=== PATIENT | female | born 1970 | race Caucasian/White ===

== ENCOUNTER 2016-04-05 11:37 | Emergency (ER) | payer MEDICAID ==
--- NOTE | 2016-04-05 11:46 | ER Document Report ---
ED Medical Screen (RME) - General Stated Complaint: BUMP ON RIGHT HAND Time seen by provider: 11:46 Mode of Arrival: Ambulatory Information source: Patient Notes: 45-year-old female complaining of a bump on the dorsal aspect of her right hand over the lateral carpal. It appears to be a ganglion cyst. TRAVEL OUTSIDE OF THE [place] IN LAST 30 DAYS: No - Related Data Allergies/Adverse Reactions: clarithromycin [From Biaxin] Allergy (Verified 04/05/16 11:43) erythromycin base [Erythromycin Base] Allergy (Verified 04/05/16 11:43) naproxen sodium [From Anaprox] Allergy (Verified 04/05/16 11:43) pseudoephedrine HCl [From Sudafed] Allergy (Verified 04/05/16 11:43) Sulfa (Sulfonamide Antibiotics) Allergy (Verified 04/05/16 11:43) Past Medical History Pulmonary Medical History: Reports: Hx Asthma Neurological Medical History: Reports: Hx Seizures Renal/ Medical History: Reports: Hx Ovarian Cysts GI Medical History: Reports: Hx Gastroesophageal Reflux Disease Musculoskeltal Medical History: Reports Hx Musculoskeletal Deformity Skin Medical History: Reports Hx Cellulitis Psychiatric Medical History: Reports: Hx Anxiety, Hx Depression Infectious Medical History: Reports: Hx MRSA Past Surgical History: Reports: Hx Section, Hx Gynecologic Surgery - tubal , Hx Orthopedic Surgery - Right tibia intramedullary clare, Hx Tonsillectomy - Immunizations Hx Diphtheria, Pertussis, Tetanus Vaccination: No - unknown Physical Exam - Vital signs Vitals: Temp Pulse Resp BP Pulse Ox 97.9 F 99 20 127/86 H 98 04/05/16 11:40 04/05/16 11:40 04/05/16 11:40 04/05/16 11:40 04/05/16 11:40 Course - Vital Signs Vital signs: Temp Pulse Resp BP Pulse Ox 97.9 F 99 20 127/86 H 98 04/05/16 11:40 04/05/16 11:40 04/05/16 11:40 04/05/16 11:40 04/05/16 11:40
--- NOTE | 2016-04-05 12:07 | ER Document Report ---
ED Hand/Wrist Injury - General Chief Complaint: Wrist Pain Stated Complaint: BUMP ON RIGHT HAND Mode of Arrival: Ambulatory Notes: Patient says that she's having pain in her right wrist for the last several months. Her problem began when she was admitted here on October 21, last year, for seizures. She had an IV placed in her right wrist and the site subsequently became infected and broke open and eventually healed with a scar of the dorsal lateral aspect of the right wrist around November. Then, about December, she noted a swollen knot of the mid dorsal right wrist which is been present ever since and is painful, especially with movement and use of that wrist. She is right-hand dominant. Has not had any current or recent drainage from the site and no swelling and erythema or any symptoms suggestive of infection. Has not had a fever. PMH: Seizures. Allergy to Anaprox, sulfa, and Biaxin and erythromycin. TRAVEL OUTSIDE OF THE [place] IN LAST 30 DAYS: No - Related Data Allergies/Adverse Reactions: clarithromycin [From Biaxin] Allergy (Verified 04/05/16 11:43) erythromycin base [Erythromycin Base] Allergy (Verified 04/05/16 11:43) naproxen sodium [From Anaprox] Allergy (Verified 04/05/16 11:43) pseudoephedrine HCl [From Sudafed] Allergy (Verified 04/05/16 11:43) Sulfa (Sulfonamide Antibiotics) Allergy (Verified 04/05/16 11:43) Past Medical History - General Information source: Patient - Social History Smoking Status: Never Smoker Cigarette use (# per day): No Chew tobacco use (# tins/day): No Frequency of alcohol use: None Drug Abuse: None Family History: Reviewed & Not Pertinent Patient has suicidal ideation: No Patient has homicidal ideation: No - Past Medical History Cardiac Medical History: Denies: Hx Coronary Artery Disease Pulmonary Medical History: Reports: Hx Asthma Neurological Medical History: Reports: Hx Seizures - Has vagal nerve stimulator. She takes Keppra, Dilantin, and Vimpat Endocrine Medical History: Denies: Hx Diabetes Mellitus Type 1, Hx Diabetes Mellitus Type 2 Renal/ Medical History: Reports: Hx Ovarian Cysts GI Medical History: Reports: Hx Gastroesophageal Reflux Disease Musculoskeltal Medical History: Reports Hx Musculoskeletal Deformity Skin Medical History: Reports Hx Cellulitis, Reports Hx MRSA Psychiatric Medical History: Reports: Hx Anxiety, Hx Depression Infectious Medical History: Reports: Hx MRSA Past Surgical History: Reports: Hx Section, Hx Gynecologic Surgery - tubal , Hx Orthopedic Surgery - Right tibia intramedullary clare, Hx Tonsillectomy - Immunizations Hx Diphtheria, Pertussis, Tetanus Vaccination: No - unknown Review of Systems - Review of Systems Constitutional: denies: Fever EENT: See HPI Cardiovascular: denies: Chest pain Respiratory: denies: Cough, Short of breath, Wheezing Gastrointestinal: denies: Abdominal pain, Diarrhea, Nausea, Vomiting Neurological/Psychological: No symptoms reported Physical Exam - Vital signs Vitals: Temp Pulse Resp BP Pulse Ox 97.9 F 99 20 127/86 H 98 04/05/16 11:40 04/05/16 11:40 04/05/16 11:40 04/05/16 11:40 04/05/16 11:40 Interpretation: Normal - Notes Notes: PHYSICAL EXAMINATION: GENERAL: Well-appearing, in no acute distress. Vital signs are all normal. Afebrile. HEAD: Atraumatic, normocephalic. EYES: Pupils equal round and reactive to light, extraocular movements intact. NECK: Normal range of motion, supple. LUNGS: Breath sounds clear and equal bilaterally. HEART: Regular rate and rhythm without murmurs. ABDOMEN: Soft, nontender. No guarding or rebound. BACK: No tenderness throughout entire back. EXTREMITIES: Dorsal right wrist has a 1 cm diameter cystic structure of the dorsal mid wrist which feels and looks like a ganglion cyst. There is no erythema or warmth or any symptoms to suggest an infectious process. Just slightly distal and lateral to this cystic structure is a healed scar from previous injury. No wrist joint swelling and no pain in the wrist joint with passive movement. No erythema, effusion, soft tissue swelling, warmth, etc. of the right wrist joint. NEUROLOGICAL: Normal speech, normal gait. Normal sensory, motor, and reflex exams. Awake, alert, and oriented x3. Cranial nerves normal. PSYCH: Normal mood, normal affect. SKIN: Warm, dry, no rashes. Course - Re-evaluation Re-evalutation: 04/05/16 12:24 After evaluating the patient's complaint of wrist pain and swelling of the dorsum of the right wrist. Patient was being written up for discharge when it was reported she was having a seizure. Only witness to the seizure is a male blast furnace blower with the patient, who, when asked what she did, he raises both of his arms up. By the time I could get to the room, the patient was not having any seizure or postictal activity. She was conversant and answering questions appropriately, did not appear to be postictal in any manner, no heavy breathing , drooling, confusion, loss of bowel or bladder. She told me that she has seizures a couple of times a week, in spite of taking her prescribed medications (Dilantin, Keppra, Vimpat). Patient was left to lay on the stretcher for a short time in the next I looked in her room, she had left. - Vital Signs Vital signs: Temp Pulse Resp BP Pulse Ox 97.4 F 94 16 127/79 H 98 04/05/16 12:26 04/05/16 12:26 04/05/16 12:26 04/05/16 12:26 04/05/16 12:26 Discharge - Discharge Clinical Impression: Ganglion cyst of dorsum of right wrist Condition: Stable Disposition: HOME, SELF-CARE Additional Instructions: Ganglion Cyst A ganglion cyst is jelly-like material inside a tough coating. The cyst usually forms near an old tendon injury. Symptoms begin when the cyst gets big enough to "get in the way." If the cyst is not growing and not hurting, it doesn't need treatment. Symptoms of a cyst can be eased by injection of cortisone. The cysts can be reduced in size by sucking the jelly material out of it (the cyst will usually grow back). A splint helps ease symptoms. We often give oral antiinflammatory medicine. Large cysts, or those that continue to cause pain, should be removed surgically. Come back if the area becomes red, swollen, or increasingly tender. SPLINT PRECAUTIONS: A splint has been placed. This will protect the area while healing begins. Your problem does NOT normally require a cast. It MUST, however, be held still! Keep the splint on ALL THE TIME until instructed to remove it by the doctor. As you begin to use the area, be careful. You shouldn't do anything which causes discomfort -- you may disturb the injury even with the splint in place. After the initial period of rest and elevation, if splint does not prevent pain when you move, come back. You may require placement of a different splint , or a cast. If there is unexpected severe pain, or numbness, discoloration, or swelling beyond the splint, you should return at once. If you feel that the splint has broken or become loose, come back. The wrist splint is being provided for your comfort. You may remove the splint when you have to have free and unencumbered use of the wrist. ICE & ELEVATION: Apply ice packs frequently against the painful area. Many different schedules are recommended, such as "20 minutes on, 20 minutes off" or "one hour ice, two hours rest." If you need to work, you may need to go longer between ice treatments. You should plan to have the area ice packed AT LEAST one- fourth of the time. The ice should be applied over the wrap, tape, or splint, or over a layer of cloth -- not directly against the skin. Some ice bags have a built-in cloth and can be put directly on the skin. Your injured part should be elevated as much as possible over the next 48 hours. Try to keep the injury above the level of the heart. Avoid use of the injured area. Elevation and rest will decrease the swelling. STEROID MEDICATION: You have been given a medicine of the cortisone/steroid class. This medication is used to control inflammation or allergy. It is usually only given for a short period of time, until the acute process subsides. There are usually no side effects from short-term use of cortisone-like medications. Some persons feel an increased sense of well-being and are not sleepy at bedtime. Long-term use of cortisone medications is best avoided, unless required for a severe condition. If your condition does not remit, or relapses after the course of corticosteroid medication, you should consult your physician. The steroid medication is given for a week to reduce any inflammatory response around the cyst. It will not cure the cyst or make it go away. USE OF ACETAMINOPHEN (Tylenol): Acetaminophen may be taken for pain relief or fever control. It's much safer than aspirin, offering a wider range of "safe" dosages. It is safe during . Some brand names are Tylenol, Panadol, Datril, Anacin 3, Tempra, and Liquiprin. Acetaminophen can be repeated every four hours. The following are maximum recommended dosages: WEIGHT Dose Drops Elixir Chewable( 80mg) (LBS.) drprs=droppers tsp=teaspoon >89 pounds or adults 650 mg to 900 mg Acetaminophen can be repeated every four hours. Maximum dose not to exceed 4000 mg a day. These maximum recommended dosages are slightly higher than the dosages written on the product container, but these dosages are very safe and below the toxic dosage for acetaminophen. Ultram Ultram is an excellent drug for pain relief. It is not a narcotic, but it works in a similar way. Ultram can take up to two hours for full effect. Although not addicting, Ultram is best avoided in patients with a history of drug abuse. Ultram should not be used with alcohol, sleeping pills, or narcotics. If you're prone to seizures, Ultram can make you more likely to have a seizure. Ultram can be hazardous when combined with MAO-inhibitor antidepressants (such as Nardil or Parnate). Be sure your doctor is aware of all medicines you are taking. Persons with severe liver or kidney disease should increase the time between doses of Ultram. Discuss this with your doctor if you're uncertain. Side effects of Ultram can include dizziness, nausea, constipation, sleepiness, and itching. (These side effects are also seen with narcotic pain medicines.) Please call your doctor if you have other disturbing effects. FOLLOW-UP CARE: If you have been referred to a physician for follow-up care, call the physician s office for an appointment as you were instructed or within the next two days. If you experience worsening or a significant change in your symptoms, notify the physician immediately or return to the Emergency Department at any time for re-evaluation. The only definitive care for cyst like the cyst on your wrist is surgical removal. I am providing you with Dr. Hernández's name and contact information. He is an orthopedic surgeon specializing in hand and wrist surgery. You may want to make an appointment to follow-up with him to discuss treatment options. Prescriptions: Tramadol HCl [Ultram] 50 mg PO Q4HP PRN #15 tablet PRN Reason: Prednisone [Deltasone 10 mg Tablet] 10 mg PO ASDIR PRN #21 tablet PRN Reason: Referrals: DIANA HERNÁNDEZ, [ACTIVE STAFF] - Follow up as needed
[2016-04-05 12:32] VITALS: BP 127/79
== END 2016-04-05 12:31 | disposition home or self-care (01) ==
LOC: ER 11:37
DX: M67.441 Ganglion, right hand (principal); M25.531 Pain in right wrist; R56.9 Unspecified convulsions; Z79.899 Other long term (current) drug therapy; J45.909 Unspecified asthma, uncomplicated; Z88.2 Allergy status to sulfonamides; Z88.1 Allergy status to other antibiotic agents; Z88.8 Allergy status to other drugs, medicaments and biological substances; Z86.14 Personal history of Methicillin resistant Staphylococcus aureus infection; T42.6X6A Underdosing of other antiepileptic and sedative-hypnotic drugs, initial encounter; Z91.128 Patient's intentional underdosing of medication regimen for other reason; F17.200 Nicotine dependence, unspecified, uncomplicated; E11.9 Type 2 diabetes mellitus without complications; Z96.89 Presence of other specified functional implants
CPT/HCPCS: 99283; 99284; 82962; L3984

== ENCOUNTER 2016-04-05 12:39 | Emergency (ER) | payer MEDICAID ==
--- NOTE | 2016-04-05 13:32 | ER Document Report ---
[id number] Notes: The patient is a 45-year-old female, past medical history seizures, anxiety, depression, presents after a 2 minute witnessed seizure that occurred after she left her doctor's office this morning. She said she is this to be taking 3 tablets of her Depakote twice daily, but she is only taking 2 tablets of her Depakote twice daily because it makes her "a raging bitch". She has not missed any of her other doses of her seizure medications. Her Dilantin levels were checked less than one week ago and they were normal. She denies head injury, nausea, vomiting, fevers, numbness, tingling, blurry vision or headache. - Related Data Allergies/Adverse Reactions: clarithromycin [From Biaxin] Allergy (Verified 04/05/16 11:43) erythromycin base [Erythromycin Base] Allergy (Verified 04/05/16 11:43) naproxen sodium [From Anaprox] Allergy (Verified 04/05/16 11:43) pseudoephedrine HCl [From Sudafed] Allergy (Verified 04/05/16 11:43) Sulfa (Sulfonamide Antibiotics) Allergy (Verified 04/05/16 11:43) Past Medical History - General Information source: Patient - Social History Smoking Status: Current Every Day Smoker Family History: Reviewed & Not Pertinent - Past Medical History Cardiac Medical History: Denies: Hx Coronary Artery Disease Pulmonary Medical History: Reports: Hx Asthma Neurological Medical History: Reports: Hx Seizures - Has vagal nerve stimulator. She takes Keppra, Dilantin, and Vimpat Endocrine Medical History: Denies: Hx Diabetes Mellitus Type 1, Hx Diabetes Mellitus Type 2 Renal/ Medical History: Reports: Hx Ovarian Cysts GI Medical History: Reports: Hx Gastroesophageal Reflux Disease Musculoskeltal Medical History: Reports Hx Musculoskeletal Deformity Skin Medical History: Reports Hx Cellulitis, Reports Hx MRSA Psychiatric Medical History: Reports: Hx Anxiety, Hx Depression Infectious Medical History: Reports: Hx MRSA Past Surgical History: Reports: Hx Section, Hx Gynecologic Surgery - tubal , Hx Orthopedic Surgery - Right tibia intramedullary clare, Hx Tonsillectomy - Immunizations Hx Diphtheria, Pertussis, Tetanus Vaccination: No - unknown Review of Systems - Review of Systems Notes: REVIEW OF SYSTEMS: CONSTITUTIONAL: -fevers, -chills EENT: -eye pain, -difficulty swallowing, -nasal congestion CARDIOVASCULAR:-chest pain, -syncope. RESPIRATORY: -cough, -SOB GASTROINTESTINAL: -abdominal pain, - nausea, -vomiting, -diarrhea GENITOURINARY: -dysuria, -hematuria MUSCULOSKELETAL: -back pain, -neck pain SKIN: -rash or skin lesions. HEMATOLOGIC: -easy bruising or bleeding. LYMPHATIC: -swollen, enlarged glands. NEUROLOGICAL: -altered mental status, -headache, +seizures PSYCHIATRIC: -anxiety, -depression. ALL OTHER SYSTEMS REVIEWED AND NEGATIVE. Physical Exam - Vital signs Vitals: HR 72, BP 128/73, Pulse Ox 96% on RA, RR 12 - Notes Notes: PHYSICAL EXAMINATION: GENERAL: Well-appearing, well-nourished and in no acute distress. HEAD: Atraumatic, normocephalic. EYES: Pupils equal round and reactive to light, extraocular movements intact, sclera anicteric, conjunctiva are normal. ENT: nares patent, oropharynx clear without exudates. Moist mucous membranes. NECK: Normal range of motion, supple without lymphadenopathy LUNGS: Breath sounds clear to auscultation bilaterally and equal. No wheezes rales or rhonchi. HEART: Regular rate and rhythm without murmurs ABDOMEN: Soft, nontender, normoactive bowel sounds. No guarding, no rebound. No masses appreciated. EXTREMITIES: Normal range of motion, no pitting or edema. No cyanosis. NEUROLOGICAL: Cranial nerves grossly intact. Normal speech, normal gait. Normal sensory, motor, and reflex exams. PSYCH: Normal mood, normal affect. SKIN: Warm, Dry, normal turgor, no rashes or lesions noted. Course - Re-evaluation Re-evalutation: Accu-Chek normal and no head injury. Patient has a history of seizures. Patient does not want her Depakote levels checked at this time because she knows that they will be low because she is not taking them as instructed. Instructed her to take her Depakote when she gets home and to follow-up with the neurologist if she is expressing to many side effects. Discharge - Discharge Clinical Impression: Recurrent seizures Condition: Good Disposition: HOME, SELF-CARE Additional Instructions: Daycare medications as prescribed by her neurologist. If you're having side effects, contact your neurologist to discuss changing her medications. Seizure, Known Epileptic You have had a seizure. Seizures may "break through" in an epileptic due to stress of infection or injury, a change in blood chemistry, or drug and alcohol use. Another common cause is failure to take medication as prescribed. Your doctor has evaluated your situation for the likely cause of this seizure. It is important that you follow his advice concerning any medication changes and follow-up care. Further testing of anti-seizure medication levels in your blood may be necessary. If you have a [place] driver's license, it's important that you DO NOT DRIVE until given permission by your physician. This seizure must be reported to the [place] driver 's license bureau. Call the doctor or return if seizures recur, or if new or unusual symptoms arise -- such as severe headache, confusion, excessive sleepiness, local weakness or numbness, neck stiffness, or fever. Referrals: SANFORD CHRISTENSEN MD [ACTIVE STAFF] - Follow up as needed
== END 2016-04-05 14:05 | disposition home or self-care (01) ==
LOC: ER 12:39
DX: R56.9 Unspecified convulsions (principal); T42.6X6A Underdosing of other antiepileptic and sedative-hypnotic drugs, initial encounter; Z91.128 Patient's intentional underdosing of medication regimen for other reason; Z79.899 Other long term (current) drug therapy; F17.200 Nicotine dependence, unspecified, uncomplicated; E11.9 Type 2 diabetes mellitus without complications; Z88.1 Allergy status to other antibiotic agents; Z88.8 Allergy status to other drugs, medicaments and biological substances; Z88.2 Allergy status to sulfonamides; J45.909 Unspecified asthma, uncomplicated; Z96.89 Presence of other specified functional implants; Z86.14 Personal history of Methicillin resistant Staphylococcus aureus infection
CPT/HCPCS: 82962; 99284

== ENCOUNTER 2016-04-06 21:44 | Emergency (ER) | payer MEDICAID ==
--- NOTE | 2016-04-06 22:50 | ER Document Report ---
ED Seizure - General Chief Complaint: Probable Seizure Stated Complaint: POSSIBLE SEIZURE Mode of Arrival: Ambulatory Information source: Patient, Friend Notes: Patient is a 45-year-old female with a history of seizures who presents here today for 3 seizures that she's had today that were witnessed by her boyfriend. Boyfriend states that she "shook all over and peed herself each time." He states that the longest seizure was approximately 3-4 minutes long. She admits that she does not take her Dilantin like she should, she is supposed to take it 3 times a day and states that she usually only takes it twice. She would like information for another neurologist as she does not want to see Dr. Wong any longer. - Related Data Allergies/Adverse Reactions: clarithromycin [From Biaxin] Allergy (Verified 04/05/16 11:43) erythromycin base [Erythromycin Base] Allergy (Verified 04/05/16 11:43) naproxen sodium [From Anaprox] Allergy (Verified 04/05/16 11:43) pseudoephedrine HCl [From Sudafed] Allergy (Verified 04/05/16 11:43) Sulfa (Sulfonamide Antibiotics) Allergy (Verified 04/05/16 11:43) Past Medical History - General Information source: Patient, Friend - Social History Smoking Status: Unknown if Ever Smoked Family History: Reviewed & Not Pertinent - Past Medical History Cardiac Medical History: Denies: Hx Coronary Artery Disease Pulmonary Medical History: Reports: Hx Asthma Neurological Medical History: Reports: Hx Seizures - Has vagal nerve stimulator. She takes Keppra, Dilantin, and Vimpat Endocrine Medical History: Denies: Hx Diabetes Mellitus Type 1, Hx Diabetes Mellitus Type 2 Renal/ Medical History: Reports: Hx Ovarian Cysts GI Medical History: Reports: Hx Gastroesophageal Reflux Disease Musculoskeltal Medical History: Reports Hx Musculoskeletal Deformity Skin Medical History: Reports Hx Cellulitis, Reports Hx MRSA Psychiatric Medical History: Reports: Hx Anxiety, Hx Depression Infectious Medical History: Reports: Hx MRSA Past Surgical History: Reports: Hx Section, Hx Gynecologic Surgery - tubal , Hx Orthopedic Surgery - Right tibia intramedullary clare, Hx Tonsillectomy - Immunizations Hx Diphtheria, Pertussis, Tetanus Vaccination: No - unknown Review of Systems - Review of Systems Constitutional: No symptoms reported EENT: No symptoms reported Cardiovascular: No symptoms reported Respiratory: No symptoms reported Gastrointestinal: No symptoms reported Genitourinary: No symptoms reported Female Genitourinary: No symptoms reported Musculoskeletal: No symptoms reported Skin: No symptoms reported Hematologic/Lymphatic: No symptoms reported Neurological/Psychological: See HPI Physical Exam - Vital signs Vitals: Temp Pulse Resp BP Pulse Ox 98.2 F 92 21 H 134/84 H 100 04/06/16 23:00 04/06/16 23:00 04/06/16 23:00 04/06/16 23:00 04/06/16 23:00 - Notes Notes: PHYSICAL EXAMINATION: GENERAL: Morbidly obese, otherwise Well-appearing and in no acute distress. HEAD: Atraumatic, normocephalic. EYES: Pupils equal round and reactive to light, extraocular movements intact, sclera anicteric, conjunctiva are normal. ENT: ear canals without erythema or foreign body, TMs pearly gan with good bony landmarks, nares patent, oropharynx clear without exudates. Moist mucous membranes. Airway patent, no evidence of patient biting tongue NECK: Normal range of motion, supple without lymphadenopathy LUNGS: CTAB and equal. No wheezes rales or rhonchi. HEART: Regular rate and rhythm without murmurs ABDOMEN: Soft, no tenderness. No guarding, no rebound BACK: no vertebral tenderness, normal ROM GI/: no CVA tenderness EXTREMITIES: Normal range of motion, no pitting edema. No cyanosis. NEUROLOGICAL: Cranial nerves grossly intact. Normal sensory/motor exams. PSYCH: Normal mood, normal affect. SKIN: Warm, Dry, normal turgor, no rashes or lesions noted Course - Re-evaluation Re-evalutation: 04/07/16 06:53 Patient was given IV dose of Dilantin here in the emergency department and advised to follow the prescription as it is written and follow-up with her neurologist. - Vital Signs Vital signs: Temp Pulse Resp BP Pulse Ox 98.2 F 77 20 109/61 99 04/07/16 01:53 04/07/16 01:53 04/07/16 01:53 04/07/16 01:53 04/07/16 01:53 Discharge - Discharge Clinical Impression: Recurrent seizures Condition: Stable Disposition: HOME, SELF-CARE Additional Instructions: Return immediately for any new or worsening symptoms. Follow up with your neurologist, call tomorrow to make followup appointment. Forms: Return to Work
[2016-04-06] MEDS ORDERED: NORMAL SALINE 1000 ML 1,000 ML IV ONE (22:51)
[2016-04-07] MEDS ORDERED: PHENYTOIN SODIUM INJ/PF 250 MG/5 ML SDV IV ONE (00:14)
[2016-04-07] MEDS ORDERED: PROCHLORPERAZINE EDISYLATE INJ 10 MG/2 ML VIAL IV ONE (01:36)
[2016-04-07] MEDS ORDERED: DIPHENHYDRAMINE HCL 50 MG/ML VIAL IV ONE (01:36)
[2016-04-07 02:08] VITALS: BP 109/61
== END 2016-04-07 02:08 | disposition home or self-care (01) ==
LOC: ER 21:44
DX: R56.9 Unspecified convulsions (principal); R32 Unspecified urinary incontinence; T42.0X6A Underdosing of hydantoin derivatives, initial encounter; Z91.128 Patient's intentional underdosing of medication regimen for other reason; Z91.14 Patient's other noncompliance with medication regimen; E66.01 Morbid (severe) obesity due to excess calories; J45.909 Unspecified asthma, uncomplicated; Z88.1 Allergy status to other antibiotic agents; Z88.8 Allergy status to other drugs, medicaments and biological substances; Z88.2 Allergy status to sulfonamides; Z96.89 Presence of other specified functional implants; Z86.14 Personal history of Methicillin resistant Staphylococcus aureus infection
CPT/HCPCS: 99283; 96374; 96375; J1200; J1165; J0780

== ENCOUNTER → 2016-04-06 | Outpatient (CLI) | payer MEDICAID ==
[2016-04-06 13:23] LABS: HEMATOCRIT 35.3 % (36.0-47.0); HEMOGLOBIN 12.2 g/dL (12.0-15.5); HGB HCT DIFFERENCE 1.3; MEAN CORPUSCULAR HEMOGLOBIN 32.7 pg (27.0-33.4); MEAN CORPUSCULAR HGB CONC 34.7 g/dL (32.0-36.0); MEAN CORPUSCULAR VOLUME 94 fl (80-97); RED BLOOD COUNT 3.74 10^6/uL (3.72-5.28); RED CELL DISTRIBUTION WIDTH 13.5 % (11.5-14.0); WHITE BLOOD COUNT 5.8 10^3/uL (4.0-10.5)
[2016-04-06 13:52] LABS: VALPROIC ACID 57.6 ug/mL (50.0-120.0)
[2016-04-08 09:57] LABS: LACOSAMIDE 4.9 ug/mL (5.0-10.0)
[2016-04-08 14:36] LABS: LEVETIRACETAM (KEPPRA) 5.3 ug/mL (10.0-40.0)
== END ==
LOC: OD 12:09
PROVIDERS: ATTEND Specialist
DX: R56.9 Unspecified convulsions (principal)
CPT/HCPCS: 36415; 80164; 80177; 80185; 82542; 84460; 85027

== ENCOUNTER 2016-04-09 09:16 | Emergency (ER) | payer MEDICAID ==
[2016-04-09 10:43] LABS: ABSOLUTE EOSINOPHILS # (AUTO) 0.1 10^3/uL (0.0-0.6); ABSOLUTE LYMPHOCYTES (AUTO) 1.9 10^3/uL (0.5-4.7); ABSOLUTE MONOCYTES (AUTO) 0.5 10^3/uL (0.1-1.4); ABSOLUTE NEUT (AUTO) 2.4 10^3/uL (1.7-8.2); BASOPHILS % (AUTO) 0.7 % (0-2); EOSINOPHILS % (AUTO) 2.6 % (0-6); HEMATOCRIT 34.4 % (36.0-47.0); HEMOGLOBIN 11.4 g/dL (12.0-15.5); HGB HCT DIFFERENCE -0.2; LYMPHOCYTES % (AUTO) 38.8 % (13-45); MEAN CORPUSCULAR HEMOGLOBIN 32.3 pg (27.0-33.4); MEAN CORPUSCULAR HGB CONC 33.2 g/dL (32.0-36.0); MEAN CORPUSCULAR VOLUME 97 fl (80-97); MONOCYTES % (AUTO) 9.8 % (3-13); RED BLOOD COUNT 3.54 10^6/uL (3.72-5.28); RED CELL DISTRIBUTION WIDTH 13.3 % (11.5-14.0); SEGMENTED NEUTROPHILS % (AUTO) 48.1 % (42-78)
[2016-04-09 10:46] LABS: APPEARANCE,URINE SLIGHTLY-CLOUDY; BILIRUBIN,URINE NEGATIVE (NEGATIVE); GLUCOSE, URINE NEGATIVE (NEGATIVE); KETONES,URINE TRACE mg/dL (NEGATIVE); LEUKOCYTE ESTERASE,URINE NEGATIVE (NEGATIVE); NITRITE,URINE NEGATIVE (NEGATIVE); PROTEIN,URINE NEGATIVE (NEGATIVE); URINE SPECIFIC GRAVITY 1.016; UROBILINOGEN,URINE NEGATIVE mg/dL (<2.0)
[2016-04-09 11:04] LABS: ALANINE AMINOTRANSFERASE 17 U/L (9-52); ALBUMIN 3.5 g/dL (3.5-5.0); ALKALINE PHOSPHATASE 50 U/L (38-126); ANION GAP 9 (5-19); ASPARTATE AMINO TRANSFERASE 12 U/L (14-36); BILIRUBIN,TOTAL 0.2 mg/dL (0.2-1.3); BLOOD UREA NITROGEN 17 mg/dL (7-20); CALCIUM 9.3 mg/dL (8.4-10.2); CARBON DIOXIDE 28 mmol/L (22-30); CHLORIDE 102 mmol/L (98-107); CREATININE RESULT 0.69 mg/dL (0.52-1.25); GLUCOSE 94 mg/dL (75-110); POTASSIUM 4.5 mmol/L (3.6-5.0); SODIUM 139.4 mmol/L (137-145); TOTAL PROTEIN 6.8 g/dL (6.3-8.2)
[2016-04-09 11:06] LABS: ALCOHOL < 10 mg/dL (NONE DETECTED)
[2016-04-09 11:11] LABS: URINE BARBITURATES SCREEN NEGATIVE; URINE METHADONE SCREEN NEGATIVE; URINE PHENCYCLIDINE SCREEN NEGATIVE
[2016-04-09 11:14] VITALS: BP 142/104
--- NOTE | 2016-04-09 11:14 | ER Document Report ---
ED Seizure - General Chief Complaint: Probable Seizure Stated Complaint: WEAKNESS Information source: Patient Notes: Patient states she's had increased seizures recently having 3 yesterday and 4 today. He should states that after having her seizures she has had some weakness. Patient states that typically she has to walk with a cane. Patient reports that her seizure today occurred while she was in bed. Patient denies any injury after the seizure. Patient states she has been compliant with taking her antiepileptic medications. Patient reports being seen earlier this week for similar complaint. Patient denies any recent illness. TRAVEL OUTSIDE OF THE [place] IN LAST 30 DAYS: No - HPI Patient complains to provider of: History of seizures Quality of pain: No pain Continued on arrival to ED: No Can details of seizure be obtained/verified: No Current seizure medications: Keppra, Phenytoin, Valproic acid, Vimpat Preceding symptoms/context: denies: Recent drug use, Missed dose of meds, Changed meds or dosage History of: denies: CVA Character of seizure: Generalized shaking Post-ictal symptoms: Other - Generalized weakness Injuries: None Associated Symptoms: None - Related Data Allergies/Adverse Reactions: clarithromycin [From Biaxin] Allergy (Verified 04/05/16 11:43) erythromycin base [Erythromycin Base] Allergy (Verified 04/05/16 11:43) naproxen sodium [From Anaprox] Allergy (Verified 04/05/16 11:43) pseudoephedrine HCl [From Sudafed] Allergy (Verified 04/05/16 11:43) Sulfa (Sulfonamide Antibiotics) Allergy (Verified 04/05/16 11:43) Past Medical History - General Information source: Patient - Social History Smoking Status: Never Smoker Frequency of alcohol use: None Drug Abuse: None Occupation: none Lives with: Family Family History: Reviewed & Not Pertinent Patient has suicidal ideation: No Patient has homicidal ideation: No - Past Medical History Cardiac Medical History: Reports: Hx Hypertension Denies: Hx Coronary Artery Disease Pulmonary Medical History: Reports: Hx Asthma Neurological Medical History: Reports: Hx Seizures - Has vagal nerve stimulator. She takes Keppra, Dilantin, and Vimpat Endocrine Medical History: Denies: Hx Diabetes Mellitus Type 1, Hx Diabetes Mellitus Type 2 Renal/ Medical History: Reports: Hx Ovarian Cysts, Other - Interstitial cystitis. Denies: Hx Peritoneal Dialysis GI Medical History: Reports: Hx Gastroesophageal Reflux Disease Musculoskeltal Medical History: Reports Hx Musculoskeletal Deformity Skin Medical History: Reports Hx Cellulitis, Reports Hx MRSA Psychiatric Medical History: Reports: Hx Anxiety, Hx Depression Infectious Medical History: Reports: Hx MRSA Past Surgical History: Reports: Hx Section, Hx Gynecologic Surgery - tubal , Hx Orthopedic Surgery - Right tibia intramedullary clare, Hx Tonsillectomy - Immunizations Hx Diphtheria, Pertussis, Tetanus Vaccination: No - unknown Review of Systems - Review of Systems Constitutional: No symptoms reported. denies: Fever, Recent illness EENT: No symptoms reported Cardiovascular: No symptoms reported. denies: Chest pain Respiratory: No symptoms reported. denies: Cough, Short of breath Gastrointestinal: No symptoms reported. denies: Nausea, Vomiting Genitourinary: Other - Patient states that she straight catheters herself every other time she goes to the bathroom due to interstitial cystitis Female Genitourinary: No symptoms reported Musculoskeletal: No symptoms reported Skin: No symptoms reported Hematologic/Lymphatic: No symptoms reported Neurological/Psychological: Weakness - Generalized weakness Physical Exam - Vital signs Vitals: Resp 26 H 04/09/16 09:21 - General General appearance: Appears well, Alert In distress: None Notes: PHYSICAL EXAMINATION: GENERAL: Obese, Well-appearing and in no acute distress. HEAD: Atraumatic, normocephalic. EYES: sclera anicteric, conjunctiva are normal. ENT: nares patent. Moist mucous membranes. NECK: Normal range of motion, supple without lymphadenopathy LUNGS: CTAB and equal. No wheezes rales or rhonchi. HEART: Regular rate and rhythm without murmurs ABDOMEN: Soft, nontender, normal bowel sounds, no guarding. EXTREMITIES: Normal range of motion, no pitting edema. No cyanosis. BACK: No midline tenderness, no step-off or deformity. No CVA tenderness NEUROLOGICAL: Cranial nerves grossly intact. Normal speech. Normal gait. Normal strength bilateral upper and lower extremities. PSYCH: Normal mood, normal affect. SKIN: Warm, Dry, normal turgor, no rashes or lesions noted Course - Re-evaluation Re-evalutation: 04/09/[address] Bennett, reviewed patient's Dilantin level as well as her EKG. Recommends having patient continue her regular dose of her Dilantin as previously prescribed given her upward trending Dilantin level. Patient reports that she has to leave to go take care of her grandchild. Patient's laboratory studies back, discussed plan of care with patient. Patient verbalized understanding and agrees with plan of care. - Vital Signs Vital signs: Temp Pulse Resp BP Pulse Ox 97.9 F 85 16 142/104 H 99 04/09/16 11:11 04/09/16 11:11 04/09/16 11:11 04/09/16 11:11 04/09/16 11:11 - Laboratory Result Diagrams: 04/09/16 10:20 04/09/16 10:20 Laboratory results interpreted by me: 04/09/16 04/09/16 04/09/16 10:20 10:20 10:20 RBC 3.54 L Hgb 11.4 L Hct 34.4 L AST 12 L Urine Ketones Urine Blood Phenytoin 9.2 L 04/09/16 10:20 RBC Hgb Hct AST Urine Ketones TRACE H Urine Blood SMALL H Phenytoin 04/09/16 12:10 Labs- Entire Visit 04/09/16 04/09/16 04/09/16 10:20 10:20 10:20 WBC 5.0 RBC 3.54 L Hgb 11.4 L Hct 34.4 L MCV 97 MCH 32.3 MCHC 33.2 RDW 13.3 Plt Count 240 Seg Neutrophils % 48.1 Lymphocytes % 38.8 Monocytes % 9.8 Eosinophils % 2.6 Basophils % 0.7 Absolute Neutrophils 2.4 Absolute Lymphocytes 1.9 Absolute Monocytes 0.5 Absolute Eosinophils 0.1 Absolute Basophils 0.0 Sodium 139.4 Potassium 4.5 Chloride 102 Carbon Dioxide 28 Anion Gap 9 BUN 17 Creatinine 0.69 Est GFR ( Amer) > 60 Est GFR (Non-Af Amer) > 60 Glucose 94 Calcium 9.3 Total Bilirubin 0.2 Direct Bilirubin 0.0 AST 12 L ALT 17 Alkaline Phosphatase 50 Total Protein 6.8 Albumin 3.5 Serum HCG, Qual Urine Color Urine Appearance Urine pH Ur Specific [place] Urine Protein Urine Glucose (UA) Urine Ketones Urine Blood Urine Nitrite Urine Bilirubin Urine Urobilinogen Ur Leukocyte Esterase Urine WBC (Auto) Urine RBC (Auto) Urine Bacteria (Auto) Squamous Epi Cells Auto Urine Mucus (Auto) Urine Ascorbic Acid Urine Opiates Screen Urine Methadone Screen Ur Barbiturates Screen Phenytoin 9.2 L Ur Phencyclidine Scrn Ur Amphetamines Screen U Benzodiazepines Scrn Urine Cocaine Screen U Marijuana (THC) Screen Serum Alcohol < 10 04/09/16 04/09/16 04/09/16 10:20 10:20 10:20 WBC RBC Hgb Hct MCV MCH MCHC RDW Plt Count Seg Neutrophils % Lymphocytes % Monocytes % Eosinophils % Basophils % Absolute Neutrophils Absolute Lymphocytes Absolute Monocytes Absolute Eosinophils Absolute Basophils Sodium Potassium Chloride Carbon Dioxide Anion Gap BUN Creatinine Est GFR ( Amer) Est GFR (Non-Af Amer) Glucose Calcium Total Bilirubin Direct Bilirubin AST ALT Alkaline Phosphatase Total Protein Albumin Serum HCG, Qual NEGATIVE Urine Color YELLOW Urine Appearance SLIGHTLY-CLOUDY Urine pH 7.0 Ur Specific [place] 1.016 Urine Protein NEGATIVE Urine Glucose (UA) NEGATIVE Urine Ketones TRACE H Urine Blood SMALL H Urine Nitrite NEGATIVE Urine Bilirubin NEGATIVE Urine Urobilinogen NEGATIVE Ur Leukocyte Esterase NEGATIVE Urine WBC (Auto) 2 Urine RBC (Auto) 0 Urine Bacteria (Auto) TRACE Squamous Epi Cells Auto 2 Urine Mucus (Auto) RARE Urine Ascorbic Acid NEGATIVE Urine Opiates Screen NEGATIVE Urine Methadone Screen NEGATIVE Ur Barbiturates Screen NEGATIVE Phenytoin Ur Phencyclidine Scrn NEGATIVE Ur Amphetamines Screen NEGATIVE U Benzodiazepines Scrn NEGATIVE Urine Cocaine Screen NEGATIVE U Marijuana (THC) Screen NEGATIVE Serum Alcohol - EKG Interpretation by Ga EKG shows normal: Sinus rhythm When compared to previous EKG there are: No significant change Discharge - Discharge Clinical Impression: Recurrent seizures, Weakness Condition: Stable Disposition: HOME, SELF-CARE Instructions: Seizure, Known Epileptic (OM), Weakness (OM) Additional Instructions: Return immediately for any new or worsening symptoms Followup with your primary care provider, call tomorrow to make a followup appointment Continue to take your seizure medications as prescribed Forms: Elevated Blood Pressure Referrals: DEE DEE LEWIS DO [NO LOCAL MD] - Follow up as needed SANFORD CHRISTENSEN MD [ACTIVE STAFF] - Follow up as needed TOMI NAVARRO CLOTHING MAN [Primary Care Provider] - 04/11/16
--- NOTE | 2016-04-10 10:05 | EKG REPORT ---
SEVERITY:- BORDERLINE ECG - SINUS RHYTHM BORDERLINE LEFT AXIS DEVIATION BORDERLINE T ABNORMALITIES, ANT-LAT LEADS : Confirmed by: Renetta Castelan MD 10-Apr-2016 10:04:30
== END 2016-04-09 11:24 | disposition home or self-care (01) ==
LOC: ER 09:16
DX: R53.1 Weakness (principal); G40.909 Epilepsy, unspecified, not intractable, without status epilepticus; I10 Essential (primary) hypertension; K21.9 Gastro-esophageal reflux disease without esophagitis; Z88.3 Allergy status to other anti-infective agents; Z88.2 Allergy status to sulfonamides; Z86.14 Personal history of Methicillin resistant Staphylococcus aureus infection
CPT/HCPCS: 36415; 80053; 80185; 80307; 81001; 84703; 85025; 93005; 93010; 99285

== ENCOUNTER 2016-04-29 12:34 | Emergency (ER) | payer MEDICAID ==
--- NOTE | 2016-04-29 13:08 | ER Document Report ---
ED Medical Screen (RME) - General Stated Complaint: ABDOMINAL PAIN Notes: onset: 3 days ago last bm: within the hour, has gone 7 times over the past 24 hours denies n/v states her abdominal pain is located in the RLQ with radiation to her back. denies urinary or vaginal symptoms I have greeted and performed a rapid initial assessment of this patient. A comprehensive ED assessment and evaluation of the patient, analysis of test results and completion of the medical decision making process will be conducted by additional ED providers. TRAVEL OUTSIDE OF THE [place] IN LAST 30 DAYS: No - Related Data Allergies/Adverse Reactions: clarithromycin [From Biaxin] Allergy (Verified 04/05/16 11:43) erythromycin base [Erythromycin Base] Allergy (Verified 04/05/16 11:43) naproxen sodium [From Anaprox] Allergy (Verified 04/05/16 11:43) pseudoephedrine HCl [From Sudafed] Allergy (Verified 04/05/16 11:43) Sulfa (Sulfonamide Antibiotics) Allergy (Verified 04/05/16 11:43) Past Medical History - Past Medical History Cardiac Medical History: Reports: Hx Hypertension Denies: Hx Coronary Artery Disease Pulmonary Medical History: Reports: Hx Asthma Neurological Medical History: Reports: Hx Seizures - Has vagal nerve stimulator. She takes Keppra, Dilantin, and Vimpat Endocrine Medical History: Denies: Hx Diabetes Mellitus Type 1, Hx Diabetes Mellitus Type 2 Renal/ Medical History: Reports: Hx Ovarian Cysts. Denies: Hx Peritoneal Dialysis GI Medical History: Reports: Hx Gastroesophageal Reflux Disease Musculoskeltal Medical History: Reports Hx Musculoskeletal Deformity Skin Medical History: Reports Hx Cellulitis, Reports Hx MRSA Psychiatric Medical History: Reports: Hx Anxiety, Hx Depression Infectious Medical History: Reports: Hx MRSA Past Surgical History: Reports: Hx Section, Hx Gynecologic Surgery - tubal , Hx Orthopedic Surgery - Right tibia intramedullary clare, Hx Tonsillectomy - Immunizations Hx Diphtheria, Pertussis, Tetanus Vaccination: No - unknown
[2016-04-29 14:03] LABS: ABSOLUTE BASOPHILS # (AUTO) 0.1 10^3/uL (0.0-0.2); ABSOLUTE EOSINOPHILS # (AUTO) 0.2 10^3/uL (0.0-0.6); ABSOLUTE LYMPHOCYTES (AUTO) 2.3 10^3/uL (0.5-4.7); ABSOLUTE MONOCYTES (AUTO) 0.5 10^3/uL (0.1-1.4); ABSOLUTE NEUT (AUTO) 3.6 10^3/uL (1.7-8.2); BASOPHILS % (AUTO) 0.8 % (0-2); EOSINOPHILS % (AUTO) 2.4 % (0-6); HEMATOCRIT 34.9 % (36.0-47.0); HEMOGLOBIN 11.9 g/dL (12.0-15.5); HGB HCT DIFFERENCE 0.8; MEAN CORPUSCULAR HEMOGLOBIN 32.9 pg (27.0-33.4); MEAN CORPUSCULAR HGB CONC 34.1 g/dL (32.0-36.0); MEAN CORPUSCULAR VOLUME 97 fl (80-97); MONOCYTES % (AUTO) 7.5 % (3-13); RED BLOOD COUNT 3.61 10^6/uL (3.72-5.28); RED CELL DISTRIBUTION WIDTH 13.9 % (11.5-14.0); SEGMENTED NEUTROPHILS % (AUTO) 54.3 % (42-78); WHITE BLOOD COUNT 6.7 10^3/uL (4.0-10.5)
[2016-04-29 14:10] LABS: ALBUMIN 3.7 g/dL (3.5-5.0); ANION GAP 10 (5-19); BILIRUBIN,TOTAL 0.3 mg/dL (0.2-1.3); BLOOD UREA NITROGEN 14 mg/dL (7-20); CALCIUM 8.7 mg/dL (8.4-10.2); CARBON DIOXIDE 22 mmol/L (22-30); CHLORIDE 109 mmol/L (98-107); CREATININE RESULT 0.64 mg/dL (0.52-1.25); GLUCOSE 91 mg/dL (75-110); POTASSIUM 4.3 mmol/L (3.6-5.0); SODIUM 140.9 mmol/L (137-145); TOTAL PROTEIN 6.9 g/dL (6.3-8.2)
[2016-04-29 14:11] LABS: ALANINE AMINOTRANSFERASE 23 U/L (9-52); ALKALINE PHOSPHATASE 52 U/L (38-126); ASPARTATE AMINO TRANSFERASE 13 U/L (14-36); LIPASE 157.7 U/L (23-300)
--- NOTE | 2016-04-29 17:26 | ER Document Report ---
ED GI/ - General Mode of Arrival: Medic Information source: Patient TRAVEL OUTSIDE OF THE [place] IN LAST 30 DAYS: No - HPI Patient complains to provider of: Abdominal pain Associated symptoms: Other - See above <FUENTESALLYN - Last Filed: 04/29/16 17:45> <DARIN RODRIGUEZ - Last Filed: 04/29/16 21:03> - General Chief Complaint: Abdominal Pain Stated Complaint: ABDOMINAL PAIN Notes: Patient is a 45 year old female, with a past medical history including seizures and a cholecystectomy 16 years ago, who presents to the ED via EMS complaining of abdominal pain onset 3 days ago. Patient reports the pain is located on her right side and radiates to her right flank and back. Patient states she had gallstones before and had her gallbladder removed. Patient also complains of diarrhea. Patient denies nausea, vomiting, and fever. Patient was given 60 of Toradol at 1230 by EMS en route. PCP: MARGO kathleen (ALLYN FUENTES) Patient has been here 5 times in last 3 weeks, 4 of those visits for seizures 1 for wrist pain. Today she claims she has been taking her Dilantin however her level is undetectable today and she did receive IV loading dose on at least one those visits. She will be given another IV loading dose of Dilantin today. ( DARIN RODRIGUEZ) - Related Data Allergies/Adverse Reactions: clarithromycin [From Biaxin] Allergy (Verified 04/29/16 13:05) erythromycin base [Erythromycin Base] Allergy (Verified 04/29/16 13:05) naproxen sodium [From Anaprox] Allergy (Verified 04/29/16 13:05) pseudoephedrine HCl [From Sudafed] Allergy (Verified 04/29/16 13:05) Sulfa (Sulfonamide Antibiotics) Allergy (Verified 04/29/16 13:05) Past Medical History - General Information source: Patient - Social History Smoking Status: Never Smoker Chew tobacco use (# tins/day): No Frequency of alcohol use: None Drug Abuse: None Family History: Reviewed & Not Pertinent Patient has suicidal ideation: No Patient has homicidal ideation: No - Past Medical History Cardiac Medical History: Reports: Hx Hypertension Pulmonary Medical History: Reports: Hx Asthma Neurological Medical History: Reports: Hx Seizures - Has vagal nerve stimulator. She takes Keppra, Dilantin, and Vimpat Renal/ Medical History: Reports: Hx Ovarian Cysts GI Medical History: Reports: Hx Gastroesophageal Reflux Disease Musculoskeltal Medical History: Reports Hx Musculoskeletal Deformity Skin Medical History: Reports Hx Cellulitis, Reports Hx MRSA Psychiatric Medical History: Reports: Hx Anxiety, Hx Depression Infectious Medical History: Reports: Hx MRSA Past Surgical History: Reports: Hx Section, Hx Cholecystectomy, Hx Gynecologic Surgery - tubal , Hx Orthopedic Surgery - Right tibia intramedullary clare, Hx Tonsillectomy - Immunizations Hx Diphtheria, Pertussis, Tetanus Vaccination: No - unknown <ALYLN FUENTES - Last Filed: 04/29/16 17:45> Review of Systems - Review of Systems Constitutional: denies: Fever EENT: No symptoms reported Cardiovascular: No symptoms reported Respiratory: No symptoms reported Gastrointestinal: See HPI, Abdominal pain, Diarrhea. denies: Nausea, Vomiting Genitourinary: No symptoms reported Female Genitourinary: No symptoms reported Musculoskeletal: No symptoms reported Skin: No symptoms reported Hematologic/Lymphatic: No symptoms reported Neurological/Psychological: No symptoms reported -: Yes All other systems reviewed and negative <ALLYN FUENTES - Last Filed: 04/29/16 17:45> Physical Exam - Vital signs Interpretation: Normal - General General appearance: Appears well, Alert - HEENT Head: Normocephalic, Atraumatic - Respiratory Respiratory status: No respiratory distress Chest status: Nontender Breath sounds: Normal Chest palpation: Normal - Cardiovascular Rhythm: Regular Heart sounds: Normal auscultation Murmur: No - Abdominal Inspection: Morbidly Obese Distension: No distension Bowel sounds: Normal Tenderness: Tender - Tenderness to palpation of right upper quadrant Organomegaly: No organomegaly - Back Back: CVA tenderness - right sided with percussion. Nontender back with palpation. - Extremities General upper extremity: Normal inspection General lower extremity: Normal inspection - Neurological Neuro grossly intact: Yes Cognition: Normal Orientation: AAOx4 Anam Coma Scale Eye Opening: Spontaneous Anam Coma Scale Verbal: Oriented Anam Coma Scale Motor: Obeys Commands [place] Coma Scale Total: 15 Speech: Normal - Psychological Associated symptoms: Normal affect, Normal mood - Skin Skin Temperature: Warm Skin Moisture: Dry Skin Color: Normal <ALLYN FUENTES - Last Filed: 04/29/16 17:45> Course - Laboratory Result Diagrams: 04/29/16 13:33 04/29/16 13:33 <ALLYN FUENTES - Last Filed: 04/29/16 17:45> - Laboratory Result Diagrams: 04/29/16 13:33 04/29/16 13:33 - Diagnostic Test Radiology reviewed: Image reviewed, Reports reviewed - CT scan of abdomen and pelvis with IV contrast shows no abnormalities. <DARIN RODRIGUEZ - Last Filed: 04/29/16 21:03> - Re-evaluation Re-evalutation: 04/29/16 20:44 Patient had unremarkable contrast and CT scan of the abdomen and pelvis. Her white blood cell count is 6700 with no shift. Her chemistries are normal and her lipase is normal. Her liver enzymes are normal. Her urinalysis does not suggest infection but it will be cultured. There is no explanation for her symptoms other than probable muscle strain. (DARIN RODRIGUEZ) - Vital Signs Vital signs: Temp Pulse Resp BP Pulse Ox 97.5 F 65 20 126/91 H 99 04/29/16 13:05 04/29/16 13:05 04/29/16 13:05 04/29/16 13:05 04/29/16 13:05 (ALLYN FUENTES) (DARIN RODRIGUEZ) - Laboratory Laboratory results interpreted by me: 04/29/16 04/29/16 04/29/16 13:33 13:33 13:33 RBC 3.61 L Hgb 11.9 L Hct 34.9 L Chloride 109 H AST 13 L Urine Ketones Urine Nitrite Ur Leukocyte Esterase Phenytoin Valproic Acid 28.2 L 04/29/16 04/29/16 13:33 17:25 RBC Hgb Hct Chloride AST Urine Ketones TRACE H Urine Nitrite POSITIVE H Ur Leukocyte Esterase TRACE H Phenytoin < 3.0 L Valproic Acid (ALLYN FUENTES) (DARIN RODRIGUEZ) Discharge <ALLYN FUENTES - Last Filed: 04/29/16 17:45> <DARIN RODRIGUEZ - Last Filed: 04/29/16 21:03> - Discharge Clinical Impression: Right upper quadrant abdominal pain, Right flank pain, Subtherapeutic anticonvulsant levels Condition: Stable Disposition: HOME, SELF-CARE Additional Instructions: Flank Pain: We weren't able to prove an exact cause for your flank pain. Pain in the flank can be caused by a muscle strain or spasm. Sometimes a kidney stone causes pain, but can't be found on our tests. Infection in the kidney should be evident on a urine test. Early shingles can occasionally cause flank pain, without the rash that proves the diagnosis. On rare occasions, disease of the pancreas, aorta, spleen, or colon can create pain in the flank. At this time, there's no evidence of a dangerous condition, and it seems safe for you to be at home. If the pain goes away and does not come back, no further testing will be needed. If pain persists, or becomes more severe, we may need to repeat some tests or order additional new testing. Blood in the urine, urgency to urinate frequently, and pain that radiates to the groin can indicate a kidney stone. Fever may mean that the pain is due to infection, either of the kidney or the colon (diverticulitis). If your pain is early shingles, you should develop an eruption of blisters in the painful area within a few days. Call the doctor or return if you have pain that is spreading or becoming more severe, pain that does not resolve with time, fever, or any other new symptoms. YOUR DILANTIN LEVEL WAS UNDETECTABLE. YOUR DEPAKOTE LEVEL WAS VERY LOW. BE SURE TO TAKE YOUR SEIZURE MEDICATIONS. TAKE THE MEDICATIONS PRESCRIBED. REST. AVOID ACTIVITY THAT MAKES THE PAIN WORSE. FOLLOW UP WITH YOUR DOCTOR MONDAY IF NOT IMPROVING. RETURN TO THE EMERGENCY ROOM IF ANY NEW OR WORSENING SYMPTOMS. Prescriptions: Tramadol HCl 50 mg PO QID PRN #20 tablet PRN Reason: Referrals: TOMI NAVARRO PROGRAMMER ANALYST [Primary Care Provider] - Follow up in 3-5 days Scribe Attestation: 04/29/16 21:02 I personally performed the services described in the documentation, reviewed and edited the documentation which was dictated to the scribe in my presence, and it accurately records my words and actions. (DARIN RODRIGUEZ) Scribe Documentation - Scribe Written by Ingrid:: ingrid Pitt, 04/29/16, [id number] acting as scribe for :: Live <ALLYN FUENTES - Last Filed: 04/29/16 17:45>
[2016-04-29] MEDS ORDERED: MORPHINE SULFATE 10 MG/ML INJ IV ONE (17:29)
[2016-04-29] MEDS ORDERED: NORMAL SALINE 1000 ML 1,000 ML IV ONE (17:29)
[2016-04-29] MEDS ORDERED: ONDANSETRON HCL INJ/PF 4 MG/2 ML SDV IV ONE (17:29)
[2016-04-29 17:35] LABS: ADD ON TESTING BLD IN LAB ACKNOWLEDGE
[2016-04-29 18:09] LABS: APPEARANCE,URINE CLOUDY; BILIRUBIN,URINE NEGATIVE (NEGATIVE); GLUCOSE, URINE NEGATIVE (NEGATIVE); KETONES,URINE TRACE mg/dL (NEGATIVE); LEUKOCYTE ESTERASE,URINE TRACE (NEGATIVE); NITRITE,URINE POSITIVE (NEGATIVE); PROTEIN,URINE NEGATIVE (NEGATIVE); URINE SPECIFIC GRAVITY 1.031; UROBILINOGEN,URINE NEGATIVE mg/dL (<2.0)
[2016-04-29 18:22] LABS: VALPROIC ACID 28.2 ug/mL (50.0-120.0)
[2016-04-29 18:23] LABS: URINE BARBITURATES SCREEN NEGATIVE; URINE METHADONE SCREEN NEGATIVE; URINE OPIATES LOW NEGATIVE; URINE PHENCYCLIDINE SCREEN NEGATIVE
[2016-04-29] MEDS ORDERED: PHENYTOIN SODIUM INJ/PF 250 MG/5 ML SDV IV ONE (18:44)
[2016-04-29] MEDS ORDERED: TRAMADOL HCL 50 MG TABLET PO ONE (21:01)
[2016-04-29 21:22] VITALS: BP 131/81
== END 2016-04-29 21:21 | disposition home or self-care (01) ==
LOC: ER 12:34
DX: R10.11 Right upper quadrant pain (principal); R79.1 Abnormal coagulation profile; R19.7 Diarrhea, unspecified; R56.9 Unspecified convulsions
CPT/HCPCS: 99284; 96361; 96374; 96375; 36415; 87086; 83690; 80185; 85025; 87088; 80053; 81001; 80164; 87186; 80307; 74177; J2270; J1165; J2405; J7030

== ENCOUNTER 2016-05-26 22:11 | Emergency (ER) | payer MEDICAID ==
[2016-05-26] MEDS ORDERED: PHENYTOIN SODIUM INJ/PF 250 MG/5 ML SDV IV ONE (22:58)
--- NOTE | 2016-05-26 23:05 | ER Document Report ---
ED General - General TRAVEL OUTSIDE OF THE [place]. IN LAST 30 DAYS: No <IVORY SIMPSON - Last Filed: 05/27/16 07:32> <KIKA BURGER - Last Filed: 05/27/16 10:26> <NYDIA NOVA - Last Filed: 05/27/16 19:58> - General Stated Complaint: POSSIBLE SEIZURE Notes: Patient is a 45 year old female presents with complaint of recurrent seizures. She says that she was followed by Dr. Wong but recently fired him. She said just before she fired him she had her vagal nerve stimulator adjusted. She says today the stimulator has been firing frequently. Cause is causes her had to shake and has been causing severe diarrhea. She's also had frequent seizures. Paramedics gave her a total of 6 mg of Valium through the IV. She currently does not have a neurologist now. She does have a card to the rep who helps adjust her vagal nerve stimulator. The reps name is Shoaib South. His phone number is [phone]. She is on Dilantin as well as Vimpat and Keppra. He says that her Dilantin levels usually run low even though she takes her medication and she thinks that they're even lower because she's been having diarrhea and is passing stuff very quickly. She denies any fevers or infections. She has no other complaints at this time. (IVORY SIMPSON) - Related Data Allergies/Adverse Reactions: clarithromycin [From Biaxin] Allergy (Verified 04/29/16 13:05) erythromycin base [Erythromycin Base] Allergy (Verified 04/29/16 13:05) naproxen sodium [From Anaprox] Allergy (Verified 04/29/16 13:05) pseudoephedrine HCl [From Sudafed] Allergy (Verified 04/29/16 13:05) Sulfa (Sulfonamide Antibiotics) Allergy (Verified 04/29/16 13:05) Past Medical History - Social History Smoking Status: Current Every Day Smoker Frequency of alcohol use: None Drug Abuse: None Family History: Reviewed & Not Pertinent - Past Medical History Cardiac Medical History: Reports: Hx Hypertension Denies: Hx Coronary Artery Disease Pulmonary Medical History: Reports: Hx Asthma Neurological Medical History: Reports: Hx Seizures - Has vagal nerve stimulator. She takes Keppra, Dilantin, and Vimpat Endocrine Medical History: Denies: Hx Diabetes Mellitus Type 1, Hx Diabetes Mellitus Type 2 Renal/ Medical History: Reports: Hx Ovarian Cysts. Denies: Hx Peritoneal Dialysis GI Medical History: Reports: Hx Gastroesophageal Reflux Disease Musculoskeltal Medical History: Reports Hx Musculoskeletal Deformity Skin Medical History: Reports Hx Cellulitis, Reports Hx MRSA Psychiatric Medical History: Reports: Hx Anxiety, Hx Depression Infectious Medical History: Reports: Hx MRSA Past Surgical History: Reports: Hx Section, Hx Cholecystectomy, Hx Gynecologic Surgery - tubal , Hx Orthopedic Surgery - Right tibia intramedullary clare, Hx Tonsillectomy - Immunizations Hx Diphtheria, Pertussis, Tetanus Vaccination: No - unknown <IVORY SIMPSON - Last Filed: 05/27/16 07:32> Review of Systems <IVORY SIMPSON - Last Filed: 05/27/16 07:32> <KIKA BURGER - Last Filed: 05/27/16 10:26> <NYDIA NOVA - Last Filed: 05/27/16 19:58> - Review of Systems Notes: My Normal Review Basic REVIEW OF SYSTEMS: CONSTITUTIONAL : Denies fever, chills, or sweats. Denies recent illness. EENT: Denies eye, ear, throat, or mouth pain or symptoms. Denies nasal or sinus congestion. CARDIOVASCULAR: Denies chest pain. RESPIRATORY: Denies cough, cold, or chest congestion. Denies shortness of breath, difficulty breathing, or wheezing. GASTROINTESTINAL: Denies abdominal pain. Denies nausea, vomiting, or diarrhea. Denies constipation. Last BM: MUSCULOSKELETAL: Denies neck or back pain or joint pain or swelling. SKIN: Denies rash or skin lesions. NEUROLOGICAL: Recurrent seizures ALL OTHER SYSTEMS REVIEWED AND NEGATIVE. (IVORY SIMPSON) Physical Exam <IVORY SIMPSON - Last Filed: 05/27/16 07:32> <KIKA BURGER - Last Filed: 05/27/16 10:26> <NYDIA NOVA - Last Filed: 05/27/16 19:58> - Vital signs Vitals: Temp 97.6 F 05/26/16 22:15 - Notes Notes: General Appearance: Well nourished, alert, cooperative, no acute distress, no obvious discomfort. Vitals: reviewed, See vital signs table. Head: no swelling or tenderness to the head Eyes: PERRL, EOMI, Conjuctiva clear Mouth: No decreasd moisture Throat: No tonsillar inflammation, No airway obstruction, No lymphadenopathy Neck: Supple, no neck tenderness, No thyromegaly Lungs: No wheezing, No rales, No rhonci, No accessory muscle use, good air exchange bilaterally. Heart: Normal rate, Regular rythm, No murmur, no rub Abdomen: Normal BS, soft, No rigidity, No abdominal tenderness, No guarding, no rebound, no abdominal masses, no organomegaly Extremities: strength 5/5 in all extremities, good pulses in all extremities, no swelling or tenderness in the extremities, no edema. Skin: warm, dry, appropriate color, no rash Neuro: speech clear, oriented x 3, all talking to the patient she will occasionally start shaking her head side to side. This lasts a few seconds. After this she stares off for approximately 2-3 seconds and then this more alert and able answer questions again.. Is not a seizure. She says that this the vagal nerve stimulated following are the causes her to do this. She has no other convulsions or tremors. Patient is otherwise neurologically intact. Cranial nerves II through XII are intact. She's able to move all extremities without difficulty. (IVORY SIMPSON) Course - Laboratory Result Diagrams: 05/26/16 23:28 05/26/16 23:28 <IVORY SIMPSON - Last Filed: 05/27/16 07:32> - Laboratory Result Diagrams: 05/26/16 23:28 05/26/16 23:28 <KIKA BURGER - Last Filed: 05/27/16 10:26> - Laboratory Result Diagrams: 05/26/16 23:28 05/26/16 23:28 <NYDIA NOVA - Last Filed: 05/27/16 19:58> - Re-evaluation Re-evalutation: 05/26/16 23:30 Patient's vagal nerve stimulator continues to miss fire to the point where at times she is becoming very bradycardic and unwell appearing. Her heart rate at times will dip down to the high teens and low 20s for 5-10 seconds and return to normal. She will syncopize at times. Her head will thrash back and forth violently. We did try magnet which is not helping at all. [facility] neurologist being that we have no neurology coverage here. 05/26/16 23:32 05/26/16 23:38 I did attempt to call the vagal nerve stimulator rep, Shoaib Duncan, again and he is not picking up his phone. Messages have been left. 05/27/16 00:[address] Delvalle, neurologist at [facility], who agrees that patient needs to be transferred there. He agrees with the Dilantin 1000mg I gave her. He has no further recommendations as to what I can do here to control the Vagal nerve Stimulator. I am awaiting to hear back from the Hospitalist at [facility] to accept for transfer. 05/27/16 00:[address] Conway, hospitalist, who agrees to accept the patient for transfer. 05/27/16 02:57 Patient is still have some firing of her vagal nerve stimulator; however, his become much less frequent since receiving the Dilantin. [facility] informed us that she probably would not have a bed till new morning time. We'll continue to monitor her until that time. 05/27/16 05:25 Patient still had a few more episodes of her vagal nerve similar finding. Is still not as frequent as when she first arrived. Patient remained stable. We continue to await placement at [facility]. 05/27/16 06:33 Patient continues to look well. She's resting comfortably asleep now. She continues have occasional episodes of the vagal nerve steroid or firing causing her symptoms. She's had no further seizure activity since receiving the Dilantin. We will continue to monitor patient until she is transferred. 05/27/16 07:33 Patient had recurrent seizure. She also had recurrent episodes of bradycardia. She is complaining with headache and she has been. She did vomit once. The vomiting is new. I will obtain a CT scan of her head being that she has now had some vomiting and having a headache. I still think this is related to vagal neurostimulator; however, being that she's had some increase in her symptoms in the last 30 minutes we will obtain a CT scan. (IVORY SIMPSON) 05/27/16 09:05 Pts vagal stimulator was readjusted. 05/27/16 10:26 Patient continues to wish to go to [facility], transfer has already been done awaiting bed placement (KIKA BURGER) 05/27/16 19:57 Patient appears well. Resting comfortably. AVSS. Stable for transfer. ( NYDIA NOVA) - Vital Signs Vital signs: Temp Pulse Resp BP Pulse Ox 98 F 19 122/67 97 05/27/16 14:09 05/27/16 18:20 05/27/16 18:20 05/27/16 18:20 - Laboratory Laboratory results interpreted by me: 05/26/16 05/26/16 05/26/16 23:28 23:28 23:28 RBC 3.60 L Hgb 11.7 L Hct 34.9 L BUN 23 H AST 13 L Phenytoin < 3.0 L - Transfer of Care Notes: 05/27/16 07:02 I spoke with the rep for the vagal nerve stimulator. He is on his way in to turn it down so the patient is no longer having these symptoms. (IVORY SIMPSON) Discharge <IVORY SIMPSON - Last Filed: 05/27/16 07:32> <KIKA BURGER - Last Filed: 05/27/16 10:26> <NYDIA NOVA - Last Filed: 05/27/16 19:58> - Discharge Clinical Impression: Seizure disorder, Status post VNS (vagus nerve stimulator) placement, Bradycardia Condition: Stable Disposition: [facility] Referrals: DEE DEE LEWIS DO [Primary Care Provider] - Follow up as needed
[2016-05-26 23:41] LABS: ABSOLUTE BASOPHILS # (AUTO) 0.1 10^3/uL (0.0-0.2); ABSOLUTE EOSINOPHILS # (AUTO) 0.2 10^3/uL (0.0-0.6); ABSOLUTE LYMPHOCYTES (AUTO) 3.5 10^3/uL (0.5-4.7); ABSOLUTE MONOCYTES (AUTO) 0.6 10^3/uL (0.1-1.4); ABSOLUTE NEUT (AUTO) 4.3 10^3/uL (1.7-8.2); BASOPHILS % (AUTO) 0.6 % (0-2); EOSINOPHILS % (AUTO) 2.8 % (0-6); HEMATOCRIT 34.9 % (36.0-47.0); HEMOGLOBIN 11.7 g/dL (12.0-15.5); HGB HCT DIFFERENCE 0.2; LYMPHOCYTES % (AUTO) 40.4 % (13-45); MEAN CORPUSCULAR HEMOGLOBIN 32.6 pg (27.0-33.4); MEAN CORPUSCULAR HGB CONC 33.7 g/dL (32.0-36.0); MEAN CORPUSCULAR VOLUME 97 fl (80-97); MONOCYTES % (AUTO) 7.1 % (3-13); RED CELL DISTRIBUTION WIDTH 13.3 % (11.5-14.0); SEGMENTED NEUTROPHILS % (AUTO) 49.1 % (42-78); WHITE BLOOD COUNT 8.6 10^3/uL (4.0-10.5)
[2016-05-26 23:54] LABS: ALANINE AMINOTRANSFERASE 25 U/L (9-52); ALKALINE PHOSPHATASE 59 U/L (38-126); ANION GAP 12 (5-19); ASPARTATE AMINO TRANSFERASE 13 U/L (14-36); BILIRUBIN,TOTAL 0.5 mg/dL (0.2-1.3); BLOOD UREA NITROGEN 23 mg/dL (7-20); CARBON DIOXIDE 23 mmol/L (22-30); CHLORIDE 107 mmol/L (98-107); CREATININE RESULT 0.81 mg/dL (0.52-1.25); GLUCOSE 107 mg/dL (75-110); MAGNESIUM 1.6 mg/dL (1.6-2.3); POTASSIUM 3.6 mmol/L (3.6-5.0); SODIUM 141.7 mmol/L (137-145); TOTAL PROTEIN 7.3 g/dL (6.3-8.2)
[2016-05-27] MEDS ORDERED: PHENYTOIN SODIUM EXTENDED 100 MG CAPSULE PO ONE (07:00)
[2016-05-27] MEDS ORDERED: LEVETIRACETAM 500 MG TABLET PO ONE (07:01)
[2016-05-27] MEDS ORDERED: LACOSAMIDE 100 MG TABLET PO ONE (07:01)
[2016-05-27] MEDS ORDERED: ONDANSETRON HCL INJ/PF 4 MG/2 ML SDV IV ONE (07:31)
[2016-05-27] MEDS ORDERED: MORPHINE SULFATE 10 MG/ML INJ IV ONE ×2 (07:32→14:08)
[2016-05-27] MEDS ORDERED: PHENYTOIN SODIUM INJ/PF 100 MG/2 ML SDV IV ONE (14:08)
[2016-05-27 20:07] VITALS: BP 114/69
== END 2016-05-27 20:15 | disposition short-term general hospital (02) ==
LOC: ER 22:11
DX: G40.909 Epilepsy, unspecified, not intractable, without status epilepticus (principal); Z96.89 Presence of other specified functional implants; Z79.899 Other long term (current) drug therapy; R00.1 Bradycardia, unspecified; R51 Headache; R11.2 Nausea with vomiting, unspecified; R55 Syncope and collapse; R19.7 Diarrhea, unspecified; I10 Essential (primary) hypertension; J45.909 Unspecified asthma, uncomplicated; F17.200 Nicotine dependence, unspecified, uncomplicated; Z88.1 Allergy status to other antibiotic agents; Z88.8 Allergy status to other drugs, medicaments and biological substances; Z88.2 Allergy status to sulfonamides; Z86.14 Personal history of Methicillin resistant Staphylococcus aureus infection
CPT/HCPCS: 96376; 99285; 96374; 96375; 36415; 83735; 80185; 85025; 80053; 71010; 70450; J2270; J1165 ×2; J3490 ×2; J2405

== ENCOUNTER 2016-07-22 21:08 | Emergency (ER) | payer MEDICAID ==
[2016-07-22] MEDS ORDERED: NORMAL SALINE 1000 ML 1,000 ML IV PRN (21:46)
[2016-07-22] MEDS ORDERED: ONDANSETRON HCL INJ/PF 4 MG/2 ML SDV IV ONE (21:46)
--- NOTE | 2016-07-22 21:46 | ER Document Report ---
ED General - General Stated Complaint: NAUSEA/VOMITING,POSSIBLE SEIZURE Time seen by provider: 21:46 Mode of Arrival: Medic Information source: Patient TRAVEL OUTSIDE OF THE [place] IN LAST 30 DAYS: No - HPI Patient complains to provider of: diarrhea, seizures Onset: Other - 3 months Onset/Duration: Waxing and waning Quality of pain: Achy, Cramping Severity: Mild Pain Level: 1 Associated symptoms: Diarrhea Exacerbated by: Denies Relieved by: Denies Similar symptoms previously: Yes Recently seen / treated by doctor: Yes Notes: Patient is a 45-year-old female who presents to the emergency room for 2 complaints, the first being that she's been having multiple daily seizures for the past few months, the second being that she's been having 12+ episodes of diarrhea daily for the past 3 months, she reports occasional vomiting, with crampy abdominal pain, states she had 7 seizures today and claims that to be a "good day", patient has a history of seizure disorder, is currently on Vimpat, Keppra Dilantin and Depakote in an effort to control her seizures and has a vagal nerve stimulator, she was seen at this facility on 06/23/2016 and transferred to [facility] for complications related to her vagal nerve stimulator misfiring, causing seizure activity and severe bradycardia, she states her stimulator was adjusted at that point in time, and she was discharged with 2 weeks worth the medication, at a time, she has an upcoming appointment with a local neurologist in [place], she also has a history of chronic back pain - Related Data Allergies/Adverse Reactions: clarithromycin [From Biaxin] Allergy (Verified 07/22/16 23:33) erythromycin base [Erythromycin Base] Allergy (Verified 07/22/16 23:33) naproxen sodium [From Anaprox] Allergy (Verified 07/22/16 23:33) pseudoephedrine HCl [From Sudafed] Allergy (Verified 07/22/16 23:33) Sulfa (Sulfonamide Antibiotics) Allergy (Verified 07/22/16 23:33) Past Medical History - General Information source: Patient - Social History Smoking Status: Never Smoker Frequency of alcohol use: Occasional Family History: Reviewed & Not Pertinent - Past Medical History Cardiac Medical History: Reports: Hx Hypertension Denies: Hx Coronary Artery Disease Pulmonary Medical History: Reports: Hx Asthma Neurological Medical History: Reports: Hx Seizures - Has vagal nerve stimulator. She takes Keppra, Dilantin, and Vimpat Endocrine Medical History: Denies: Hx Diabetes Mellitus Type 1, Hx Diabetes Mellitus Type 2 Renal/ Medical History: Reports: Hx Ovarian Cysts. Denies: Hx Peritoneal Dialysis GI Medical History: Reports: Hx Gastroesophageal Reflux Disease Musculoskeltal Medical History: Reports Hx Musculoskeletal Deformity Skin Medical History: Reports Hx Cellulitis, Reports Hx MRSA Psychiatric Medical History: Reports: Hx Anxiety, Hx Depression Infectious Medical History: Reports: Hx MRSA Past Surgical History: Reports: Hx Section, Hx Cholecystectomy, Hx Gynecologic Surgery - tubal , Hx Orthopedic Surgery - Right tibia intramedullary clare, Hx Tonsillectomy - Immunizations Hx Diphtheria, Pertussis, Tetanus Vaccination: No - unknown Review of Systems - Review of Systems Constitutional: No symptoms reported EENT: No symptoms reported Cardiovascular: No symptoms reported Respiratory: No symptoms reported Gastrointestinal: See HPI Genitourinary: No symptoms reported Female Genitourinary: No symptoms reported Musculoskeletal: No symptoms reported Skin: No symptoms reported Hematologic/Lymphatic: No symptoms reported Neurological/Psychological: Seizure -: Yes All other systems reviewed and negative Physical Exam - Vital signs Vitals: Temp Pulse Resp BP Pulse Ox 98.2 F 80 18 130/68 H 97 07/22/16 21:30 07/22/16 21:30 07/22/16 21:30 07/22/16 21:30 07/22/16 21:30 Interpretation: Normal - General General appearance: Appears well, Alert In distress: None - HEENT Head: Normocephalic, Atraumatic Eyes: Normal Pupils: PERRL - Respiratory Respiratory status: No respiratory distress Chest status: Nontender Breath sounds: Normal Chest palpation: Normal - Cardiovascular Rhythm: Regular Heart sounds: Normal auscultation Murmur: No - Abdominal Inspection: Obese Distension: Distended Bowel sounds: Normal Tenderness: Tender - Mild diffuse Organomegaly: No organomegaly - Back Back: Normal - Extremities General upper extremity: Normal inspection, Nontender, Normal color, Normal ROM , Normal temperature General lower extremity: Normal inspection, Nontender, Normal color, Normal ROM , Normal temperature. No: Tammi's sign - Neurological Neuro grossly intact: Yes Cognition: Normal Orientation: AAOx4 Stanley Coma Scale Eye Opening: Spontaneous Anam Coma Scale Verbal: Oriented Stanley Coma Scale Motor: Obeys Commands Anam Coma Scale Total: 15 Speech: Normal Motor strength normal: LUE, RUE, LLE, RLE Sensory: Normal - Psychological Associated symptoms: Normal affect, Normal mood - Skin Skin Temperature: Warm Skin Moisture: Dry Skin Color: Normal Course - Re-evaluation Re-evalutation: 07/23/16 05:21 Nursing staff reports patient had 2/32 seizures in the time that she's been in the emergency room, I was unable to observe any of the seizures, we did send stool samples for testing and patient proved to be C. difficile positive, likely the cause of her diarrhea for the past 3 months, and because she is having such diffuse episodes of diarrhea she likely is not getting appropriate dosing of her medications which is proven by her Dilantin level, she was given and a loading dose of Dilantin in the emergency room as well as antibiotics for the control of her C. difficile, advised to follow-up with her primary care provider as well as a neurologist within the next week, or return if symptoms worsen, patient acknowledges understanding and agreement with this plan - Vital Signs Vital signs: Temp Pulse Resp BP Pulse Ox 98.2 F 77 16 112/46 L 100 07/22/16 21:30 07/23/16 03:10 07/23/16 03:10 07/23/16 03:10 07/23/16 03:01 - Laboratory Result Diagrams: 07/22/16 22:50 07/22/16 22:50 Laboratory results interpreted by me: 07/22/16 07/22/16 07/22/16 22:50 22:50 22:50 RBC 3.41 L Hgb 11.0 L Hct 32.6 L Glucose 117 H AST 10 L Urine Nitrite Urine Urobilinogen Phenytoin 3.2 L 07/22/16 23:06 RBC Hgb Hct Glucose AST Urine Nitrite POSITIVE H Urine Urobilinogen 2.0 H Phenytoin Discharge - Discharge Clinical Impression: C. difficile diarrhea, Seizures Condition: Stable Disposition: HOME, SELF-CARE Instructions: C. (Clostridium) Difficile Infection ([facility]), Seizure, Known Epileptic ([facility]) Additional Instructions: Follow up with your primary care provider in one to 2 days. Return to the emergency room immediately if symptoms worsen or any additional concerns. Prescriptions: Metronidazole [Flagyl 500 mg Tablet] 500 mg PO TID 14 Days Vancomycin HCl [Vancocin HCl] 500 mg PO TID 14 Days Referrals: DEE DEE LEWIS DO [Primary Care Provider] - Follow up as needed
[2016-07-22 23:15] LABS: ABSOLUTE BASOPHILS # (AUTO) 0.1 10^3/uL (0.0-0.2); ABSOLUTE EOSINOPHILS # (AUTO) 0.1 10^3/uL (0.0-0.6); ABSOLUTE LYMPHOCYTES (AUTO) 3.4 10^3/uL (0.5-4.7); ABSOLUTE MONOCYTES (AUTO) 0.5 10^3/uL (0.1-1.4); BASOPHILS % (AUTO) 0.8 % (0-2); EOSINOPHILS % (AUTO) 1.3 % (0-6); HEMATOCRIT 32.6 % (36.0-47.0); HGB HCT DIFFERENCE 0.4; LYMPHOCYTES % (AUTO) 41.8 % (13-45); MEAN CORPUSCULAR HEMOGLOBIN 32.1 pg (27.0-33.4); MEAN CORPUSCULAR HGB CONC 33.6 g/dL (32.0-36.0); MEAN CORPUSCULAR VOLUME 96 fl (80-97); MONOCYTES % (AUTO) 6.7 % (3-13); RED BLOOD COUNT 3.41 10^6/uL (3.72-5.28); RED CELL DISTRIBUTION WIDTH 12.5 % (11.5-14.0); SEGMENTED NEUTROPHILS % (AUTO) 49.4 % (42-78); WHITE BLOOD COUNT 8.1 10^3/uL (4.0-10.5)
[2016-07-22 23:32] LABS: APPEARANCE,URINE CLEAR; BILIRUBIN,URINE NEGATIVE (NEGATIVE); GLUCOSE, URINE NEGATIVE (NEGATIVE); KETONES,URINE NEGATIVE (NEGATIVE); LEUKOCYTE ESTERASE,URINE NEGATIVE (NEGATIVE); NITRITE,URINE POSITIVE (NEGATIVE); PROTEIN,URINE NEGATIVE (NEGATIVE); URINE SPECIFIC GRAVITY 1.013
[2016-07-22 23:37] LABS: ALBUMIN 3.6 g/dL (3.5-5.0); ANION GAP 12 (5-19); BLOOD UREA NITROGEN 18 mg/dL (7-20); CALCIUM 9.3 mg/dL (8.4-10.2); CARBON DIOXIDE 27 mmol/L (22-30); CHLORIDE 102 mmol/L (98-107); CREATININE RESULT 0.73 mg/dL (0.52-1.25); GLUCOSE 117 mg/dL (75-110); POTASSIUM 3.9 mmol/L (3.6-5.0); SODIUM 140.7 mmol/L (137-145)
[2016-07-22 23:38] LABS: ALANINE AMINOTRANSFERASE 15 U/L (9-52); ALCOHOL < 10 mg/dL (NONE DETECTED); ALKALINE PHOSPHATASE 49 U/L (38-126); ASPARTATE AMINO TRANSFERASE 10 U/L (14-36); BILIRUBIN,DIRECT 0.1 mg/dL (0.0-0.4); BILIRUBIN,TOTAL 0.3 mg/dL (0.2-1.3); MAGNESIUM 1.7 mg/dL (1.6-2.3); TOTAL PROTEIN 6.5 g/dL (6.3-8.2); VALPROIC ACID 57.1 ug/mL (50.0-120.0)
[2016-07-22] MEDS ORDERED: PHENYTOIN SODIUM INJ/PF 250 MG/5 ML SDV IV ONE (23:41)
[2016-07-22 23:45] LABS: URINE BARBITURATES SCREEN NEGATIVE; URINE METHADONE SCREEN NEGATIVE; URINE OPIATES LOW NEGATIVE; URINE PHENCYCLIDINE SCREEN NEGATIVE
[2016-07-23] MEDS ORDERED: VANCOMYCIN HCL INJ 500 MG VIAL PO ONE (01:17)
[2016-07-23] MEDS ORDERED: METRONIDAZOLE 500 MG TABLET PO ONE (01:18)
[2016-07-23 03:38] VITALS: BP 112/46
== END 2016-07-23 03:10 | disposition home or self-care (01) ==
LOC: ER 21:08
DX: G40.909 Epilepsy, unspecified, not intractable, without status epilepticus (principal); A04.7 Enterocolitis due to Clostridium difficile; I10 Essential (primary) hypertension; J45.909 Unspecified asthma, uncomplicated; Z79.899 Other long term (current) drug therapy; Z96.89 Presence of other specified functional implants; Z88.1 Allergy status to other antibiotic agents; Z88.8 Allergy status to other drugs, medicaments and biological substances; Z88.2 Allergy status to sulfonamides; Z86.14 Personal history of Methicillin resistant Staphylococcus aureus infection
CPT/HCPCS: 99284; 96361; 96374; 96375; 36415; 87045; 89055; 87205; 80177; 82962; 80307 ×2; 83735; 80185; 84703; 85025; 82272; 80053; 81001; 80164; 87493 ×2; J1165; J2405; J3370; J3490; J7030

== ENCOUNTER 2016-07-23 14:25 | Emergency (ER) | payer MEDICAID ==
[2016-07-23] MEDS ORDERED: ONDANSETRON HCL INJ/PF 4 MG/2 ML SDV IV ONE (17:58)
[2016-07-23] MEDS ORDERED: PHENYTOIN SODIUM INJ/PF 250 MG/5 ML SDV IV ONE (17:59)
[2016-07-23] MEDS ORDERED: VANCOMYCIN HCL INJ 500 MG VIAL PO ONE (18:00)
[2016-07-23] MEDS ORDERED: LEVETIRACETAM 1000 MG/NACL-ISO 100 ML IV ONE (18:00)
--- NOTE | 2016-07-23 18:03 | ER Document Report ---
ED General - General Chief Complaint: Probable Seizure Stated Complaint: NAUSEA,VOMITING,SEIZURE Time seen by provider: 18:02 Mode of Arrival: Medic Information source: Patient Notes: This is a 45-year-old female with a history of seizures (Dilantin, Keppra, Depakote, Vimpat, vagal nerve stimulator) who presents to the emergency room with recurrent seizures in the setting of a diarrheal illness. The patient was in the emergency room yesterday and received IV Dilantin, IV fluids and was observed. She was was diagnosed with C. difficile colitis with positive stool studies yesterday and started on oral medicines for that. Patient seemed to be improved and she was discharged from the ER with outpatient follow-up. Patient presents with persistent seizures at home. She states she had 10 seizures this morning and 3 in the ER today. Currently, the patient is alert and oriented 3. Review of systems: Patient reports diarrhea for the past 3 months. She denies any fever. She does report nausea and intermittent vomiting. She does report a headache (she states she has a history of headaches). She denies any chest pain, shortness of breath or abdominal pain. Primary care physician: Ms Briseno (Dr. Wilson). Neuro: Patient is "in between" neurologist. TRAVEL OUTSIDE OF THE [place] IN LAST 30 DAYS: No - HPI Onset: Last week Onset/Duration: Gradual Quality of pain: Dull Severity: Moderate Pain Level: 2 Associated symptoms: denies: Chills, Fever, Shortness of breath Relieved by: Denies Similar symptoms previously: Yes Recently seen / treated by doctor: Yes - Related Data Allergies/Adverse Reactions: clarithromycin [From Biaxin] Allergy (Verified 07/22/16 23:33) erythromycin base [Erythromycin Base] Allergy (Verified 07/22/16 23:33) naproxen sodium [From Anaprox] Allergy (Verified 07/22/16 23:33) pseudoephedrine HCl [From Sudafed] Allergy (Verified 07/22/16 23:33) Sulfa (Sulfonamide Antibiotics) Allergy (Verified 07/22/16 23:33) tramadol Allergy (Verified 07/23/16 14:45) Past Medical History - General Information source: Patient - Social History Smoking Status: Never Smoker Cigarette use (# per day): No Chew tobacco use (# tins/day): No Frequency of alcohol use: None Drug Abuse: None Lives with: Spouse/Significant other Family History: Reviewed & Not Pertinent Patient has suicidal ideation: No Patient has homicidal ideation: No - Past Medical History Cardiac Medical History: Reports: Hx Hypertension Denies: Hx Coronary Artery Disease Pulmonary Medical History: Reports: Hx Asthma Neurological Medical History: Reports: Hx Seizures - Has vagal nerve stimulator. She takes Keppra, Dilantin, and Vimpat Endocrine Medical History: Denies: Hx Diabetes Mellitus Type 1, Hx Diabetes Mellitus Type 2 Renal/ Medical History: Reports: Hx Ovarian Cysts. Denies: Hx Peritoneal Dialysis GI Medical History: Reports: Hx Gastroesophageal Reflux Disease Musculoskeltal Medical History: Reports Hx Musculoskeletal Deformity Skin Medical History: Reports Hx Cellulitis, Reports Hx MRSA Psychiatric Medical History: Reports: Hx Anxiety, Hx Depression Infectious Medical History: Reports: Hx MRSA Past Surgical History: Reports: Hx Section, Hx Cholecystectomy, Hx Gynecologic Surgery - tubal , Hx Orthopedic Surgery - Right tibia intramedullary clare, Hx Tonsillectomy - Immunizations Hx Diphtheria, Pertussis, Tetanus Vaccination: No - unknown Review of Systems - Review of Systems Constitutional: denies: Chills, Fever EENT: No symptoms reported Cardiovascular: No symptoms reported Respiratory: No symptoms reported Gastrointestinal: No symptoms reported Genitourinary: No symptoms reported Female Genitourinary: No symptoms reported Musculoskeletal: No symptoms reported Skin: No symptoms reported Hematologic/Lymphatic: No symptoms reported Neurological/Psychological: See HPI Physical Exam - Vital signs Vitals: Temp Pulse Resp BP Pulse Ox 98.2 F 82 18 130/74 H 97 07/23/16 14:48 07/23/16 14:48 07/23/16 14:48 07/23/16 14:48 07/23/16 14:48 Notes: Physical exam: GENERAL: 45-year-old female, alert and oriented 3, morbidly obese HEAD: Atraumatic, normocephalic. EYES: Pupils equal round and reactive to light, extraocular movements intact, sclera anicteric, conjunctiva are normal. ENT: TMs normal, nares patent, oropharynx clear without exudates. Moist mucous membranes. NECK: Normal range of motion, supple without lymphadenopathy or JVD. LUNGS: Breath sounds clear to auscultation bilaterally and equal. No wheezes rales or rhonchi. HEART: Regular rate and rhythm without murmurs, rubs or gallops. ABDOMEN: Soft, normoactive bowel sounds. No tenderness to palpation. No guarding, no rebound. No masses appreciated. EXTREMITIES: Normal range of motion, no pitting or edema. No clubbing or cyanosis. NEUROLOGICAL: Cranial nerves II through XII grossly intact. Normal speech, moving all extremities. PSYCH: Normal mood, normal affect. SKIN: Warm, Dry, normal turgor, no rashes or lesions noted. Course - Re-evaluation Re-evalutation: 07/23/16 19:32 Patient was treated with IV fluids, IV Dilantin load and IV Keppra load, IV Ativan in the emergency room. The patient's Dilantin was mildly subtherapeutic just prior to today's load. Depakote level was therapeutic. There is no lab capability for Keppra level here at this hospital. The patient was given oral vancomycin for the recent diagnosis of C. difficile colitis. The patient does state that she's not been able to get the vancomycin until Monday. She was also prescribed metronidazole. Given that she will be transferred to provide it, I would recommend holding the metronidazole because of the potential lowering of the seizure threshold and that medicine. I discussed case with Dr. Summers who is willing to accept the patient. [facility] apparently does have beds available. We do not have neurology consultations at this hospital. 07/23/16 20:58 We're currently awaiting bed assignment. 07/23/16 20:59 07/24/16 01:17 Patient is currently stable and without problems. She is no obvious seizures in the ER. - Vital Signs Vital signs: Temp Pulse Resp BP Pulse Ox 98.8 F 82 18 111/65 97 07/23/16 20:00 07/23/16 23:00 07/23/16 23:00 07/23/16 23:00 07/23/16 20:00 - Laboratory Result Diagrams: 07/23/16 19:23 07/23/16 19:23 Laboratory results interpreted by me: 07/23/16 07/23/16 19:23 19:23 RBC 3.47 L Hgb 11.2 L Hct 33.2 L Phenytoin 8.9 L - Diagnostic Test Radiology reviewed: Image reviewed, Reports reviewed - CT that shows nothing acute. Critical Care Note - Critical Care Note Total time excluding time spent on procedures (mins): 90 Discharge - Discharge Clinical Impression: seizure disorder uncontrolled, C. difficile colitis Condition: Stable Disposition: [facility] Referrals: DEE DEE WILSON DO [Primary Care Provider] - Follow up as needed
[2016-07-23] MEDS ORDERED: MORPHINE SULFATE 10 MG/ML INJ IV ONE (18:05)
[2016-07-23] MEDS ORDERED: LORAZEPAM INJ 2 MG/1 ML VIAL IV ONE (18:50)
[2016-07-23] MEDS: NORMAL SALINE 1000 ML 1,000 ML IV PRN (19:12)
[2016-07-23 19:35] LABS: ABSOLUTE BASOPHILS # (AUTO) 0.1 10^3/uL (0.0-0.2); ABSOLUTE EOSINOPHILS # (AUTO) 0.1 10^3/uL (0.0-0.6); ABSOLUTE LYMPHOCYTES (AUTO) 2.7 10^3/uL (0.5-4.7); ABSOLUTE MONOCYTES (AUTO) 0.4 10^3/uL (0.1-1.4); ABSOLUTE NEUT (AUTO) 3.2 10^3/uL (1.7-8.2); BASOPHILS % (AUTO) 0.9 % (0-2); EOSINOPHILS % (AUTO) 1.3 % (0-6); HEMATOCRIT 33.2 % (36.0-47.0); HEMOGLOBIN 11.2 g/dL (12.0-15.5); HGB HCT DIFFERENCE 0.4; LYMPHOCYTES % (AUTO) 41.7 % (13-45); MEAN CORPUSCULAR HEMOGLOBIN 32.4 pg (27.0-33.4); MEAN CORPUSCULAR HGB CONC 33.9 g/dL (32.0-36.0); MEAN CORPUSCULAR VOLUME 96 fl (80-97); MONOCYTES % (AUTO) 6.4 % (3-13); RED BLOOD COUNT 3.47 10^6/uL (3.72-5.28); RED CELL DISTRIBUTION WIDTH 12.5 % (11.5-14.0); SEGMENTED NEUTROPHILS % (AUTO) 49.7 % (42-78); WHITE BLOOD COUNT 6.4 10^3/uL (4.0-10.5)
[2016-07-23 20:00] LABS: ALANINE AMINOTRANSFERASE 22 U/L (9-52); ALBUMIN 3.7 g/dL (3.5-5.0); ALKALINE PHOSPHATASE 58 U/L (38-126); ANION GAP 13 (5-19); ASPARTATE AMINO TRANSFERASE 30 U/L (14-36); BILIRUBIN,DIRECT 0.1 mg/dL (0.0-0.4); BILIRUBIN,TOTAL 0.5 mg/dL (0.2-1.3); BLOOD UREA NITROGEN 10 mg/dL (7-20); CALCIUM 9.1 mg/dL (8.4-10.2); CARBON DIOXIDE 26 mmol/L (22-30); CHLORIDE 103 mmol/L (98-107); CREATININE RESULT 0.73 mg/dL (0.52-1.25); GLUCOSE 94 mg/dL (75-110); POTASSIUM 4.3 mmol/L (3.6-5.0); SODIUM 141.9 mmol/L (137-145); TOTAL PROTEIN 6.7 g/dL (6.3-8.2)
[2016-07-23 20:05] LABS: VALPROIC ACID 78.6 ug/mL (50.0-120.0)
[2016-07-23] MEDS ORDERED: OXYCODONE-ACETAMINOPHEN 5-325 MG TABLET PO ONE (22:51)
[2016-07-23] MEDS ORDERED: LACOSAMIDE 100 MG TABLET PO SCH (23:00)
[2016-07-23] MEDS ORDERED: DIVALPROEX SODIUM 500 MG TAB.SR.24H PO SCH (23:00)
[2016-07-23] MEDS ORDERED: CLONAZEPAM 1 MG TABLET PO SCH (23:00)
[2016-07-23] MEDS ORDERED: CLONAZEPAM 1 MG TABLET PO ONE (23:00)
[2016-07-23] MEDS ORDERED: LACOSAMIDE 100 MG TABLET PO ONE (23:00)
[2016-07-23] MEDS ORDERED: DIVALPROEX SODIUM 500 MG TAB.SR.24H PO ONE (23:00)
[2016-07-24] MEDS: VANCOMYCIN HCL INJ 500 MG VIAL PO SCH ×3 (01:46→12:59)
[2016-07-24] MEDS: NORMAL SALINE 1000 ML 1,000 ML IV PRN ×2 (02:02→12:59)
[2016-07-24 02:29] LABS: APPEARANCE,URINE CLEAR; BILIRUBIN,URINE NEGATIVE (NEGATIVE); GLUCOSE, URINE NEGATIVE (NEGATIVE); KETONES,URINE NEGATIVE (NEGATIVE); LEUKOCYTE ESTERASE,URINE TRACE (NEGATIVE); NITRITE,URINE POSITIVE (NEGATIVE); PROTEIN,URINE NEGATIVE (NEGATIVE); URINE SPECIFIC GRAVITY 1.016
[2016-07-24] MEDS ORDERED: FLUCONAZOLE 100 MG TABLET PO ONE (06:49)
[2016-07-24] MEDS ORDERED: NYSTATIN CREAM 15 GM TP SCH (07:00)
[2016-07-24] MEDS ORDERED: LACOSAMIDE 100 MG TABLET PO SCH (10:00)
[2016-07-24] MEDS ORDERED: DIVALPROEX SODIUM 500 MG TAB.SR.24H PO SCH (10:00)
[2016-07-24] MEDS ORDERED: OXYCODONE-ACETAMINOPHEN 5-325 MG TABLET PO PRN (12:10)
[2016-07-24 14:51] VITALS: BP 109/79
[2016-07-24] MEDS ORDERED: CLONAZEPAM 1 MG TABLET PO SCH (22:00)
== END 2016-07-24 15:37 | disposition short-term general hospital (02) ==
LOC: ER 14:25
DX: A04.7 Enterocolitis due to Clostridium difficile (principal); R56.9 Unspecified convulsions; R11.2 Nausea with vomiting, unspecified; Z79.899 Other long term (current) drug therapy
CPT/HCPCS: 99291; 99292; 96361; 51701; 96375; 96365; 36415; 80185; 85025; 80053; 81001; 80164; 70450; J3490 ×3; J2270; J2060; J1165; J2405; J3370 ×2; J7030 ×2; J1953

== ENCOUNTER 2016-08-03 04:06 | Emergency (ER) | payer MEDICAID ==
--- NOTE | 2016-08-03 04:50 | ER Document Report ---
ED GI/ - General Chief Complaint: Abdominal Cramping Stated Complaint: POSSIBLE SEIZURE AND ABDOMINAL PAIN Time Seen by Provider: 08/03/16 04:22 Mode of Arrival: Medic Information source: Patient Notes: 45-year-old female presents to ED for having "multiple seizures at home each one lasting a few seconds. She has a history of seizures and is on Dilantin and Keppra Depakote ramp at and a vagal nerve stimulator. She is not having any seizures at this time. According to EMS she did not have any seizures on the way into the emergency room. She is also complaining of nausea vomiting and diarrhea with a history of C. difficile 10 days ago. Patient states she's taken all of her medicines properly but she has a full bottle of Depakote dated 07-26-16 with no medicines gone she states she has another bottle of them at home. She also has a pack of vancomycin that she got on July 26 is still has 7 pills left and there was only 22 pills in the pack when she got them. Her other seizure medicines all the bottles are full and she states she has other bottles of each at home. TRAVEL OUTSIDE OF THE [place] IN LAST 30 DAYS: No - HPI Patient complains to provider of: Abdominal pain, Diarrhea, Vomiting Onset: Other - She states she's had nausea vomiting and diarrhea for over a week now and that she is not getting any better on the medicines she is on Timing/Duration: Persistent Quality of pain: Cramping Severity at maximum: Severe Severity in ED: Moderate Pain Level: 3 Location: LUQ, LLQ, RUQ, RLQ Vaginal bleeding (Compared to normal period): None Associated symptoms: Diarrhea, Nausea, Vomiting, Other - States she's had multiple seizures each lasting a couple seconds. Exacerbated by: Denies Relieved by: Denies Similar symptoms previously: Yes Recently seen / treated by doctor: Yes - Related Data Allergies/Adverse Reactions: clarithromycin [From Biaxin] Allergy (Verified 07/22/16 23:33) erythromycin base [Erythromycin Base] Allergy (Verified 07/22/16 23:33) naproxen sodium [From Anaprox] Allergy (Verified 07/22/16 23:33) pseudoephedrine HCl [From Sudafed] Allergy (Verified 07/22/16 23:33) Sulfa (Sulfonamide Antibiotics) Allergy (Verified 07/22/16 23:33) tramadol Allergy (Verified 07/23/16 14:45) Past Medical History - General Information source: Patient - Social History Smoking Status: Never Smoker Cigarette use (# per day): No Chew tobacco use (# tins/day): No Smoking Education Provided: No Frequency of alcohol use: None Drug Abuse: None Lives with: Spouse/Significant other Family History: Reviewed & Not Pertinent - Past Medical History Cardiac Medical History: Reports: Hx Hypertension Pulmonary Medical History: Reports: Hx Asthma EENT Medical History: Reports: None Neurological Medical History: Reports: Hx Seizures - Has vagal nerve stimulator. She takes Keppra, Dilantin, and Vimpat Endocrine Medical History: Reports: None Renal/ Medical History: Reports: Hx Ovarian Cysts Malignancy Medical History: Reports: None GI Medical History: Reports: Hx Gastroesophageal Reflux Disease, Other - C. difficile Musculoskeltal Medical History: Reports Hx Musculoskeletal Deformity Skin Medical History: Reports Hx Cellulitis, Reports Hx MRSA Psychiatric Medical History: Reports: Hx Anxiety, Hx Depression Traumatic Medical History: Reports: None Infectious Medical History: Reports: Hx C-Diff, Hx MRSA Past Surgical History: Reports: Hx Section, Hx Cholecystectomy, Hx Gynecologic Surgery - tubal , Hx Orthopedic Surgery - Right tibia intramedullary clare, Hx Tonsillectomy - Immunizations Hx Diphtheria, Pertussis, Tetanus Vaccination: No - unknown Review of Systems - Review of Systems Constitutional: Recent illness EENT: No symptoms reported Cardiovascular: No symptoms reported Respiratory: No symptoms reported Gastrointestinal: Abdominal pain, Diarrhea, Nausea, Vomiting Genitourinary: No symptoms reported Female Genitourinary: No symptoms reported Musculoskeletal: No symptoms reported Skin: No symptoms reported Hematologic/Lymphatic: No symptoms reported Neurological/Psychological: Seizure - States she's having multiple seizures a few seconds at a time -: Yes All other systems reviewed and negative Physical Exam - Vital signs Vitals: Resp 14 08/03/16 04:42 Interpretation: Normal - General General appearance: Appears well, Alert - HEENT Head: Normocephalic, Atraumatic Eyes: Normal Pupils: PERRL - Respiratory Respiratory status: No respiratory distress Chest status: Nontender Breath sounds: Normal Chest palpation: Normal - Cardiovascular Rhythm: Regular Heart sounds: Normal auscultation Murmur: No - Abdominal Inspection: Normal Distension: No distension Bowel sounds: Normal Tenderness: Nontender Organomegaly: No organomegaly - Back Back: Normal, Nontender - Extremities General upper extremity: Normal inspection, Nontender, Normal color, Normal ROM , Normal temperature General lower extremity: Normal inspection, Nontender, Normal color, Normal ROM , Normal temperature, Normal weight bearing. No: Tammi's sign - Neurological Neuro grossly intact: Yes Cognition: Normal Orientation: AAOx4 [place] Coma Scale Eye Opening: Spontaneous Anam Coma Scale Verbal: Oriented [place] Coma Scale Motor: Obeys Commands [place] Coma Scale Total: 15 Speech: Normal Motor strength normal: LUE, RUE, LLE, RLE Sensory: Normal - Psychological Associated symptoms: Normal affect, Normal mood Notes: Patient has very repetitive speech appears and states that none of her medicines or working for her. She has full bottles of most of her medicines. - Skin Skin Temperature: Warm Skin Moisture: Dry Skin Color: Normal Course - Re-evaluation Re-evalutation: 08/03/16 06:[address] chávez for UTI treatment. Patient is on medicine for his C. difficile at this time. She has a history of C. difficile in her urine in the past. We'll treat patient with Keflex send a urine culture. Patient instructed to call her primary doctor today to schedule a follow-up appointment. 08/03/16 07:02 No seizure activity noted throughout her stay in the emergency room today. No nausea or vomiting during her stay. She has had one diarrhea stool. - Vital Signs Vital signs: Temp Pulse Resp BP Pulse Ox 98.5 F 17 141/93 H 08/03/16 06:57 08/03/16 06:47 08/03/16 06:58 - Laboratory Result Diagrams: 08/03/16 05:08 08/03/16 05:08 Laboratory results interpreted by me: 08/03/16 08/03/16 08/03/16 05:08 05:08 05:08 RBC 3.60 L Hgb 11.8 L Hct 35.6 L MCV 99 H Sodium 145.2 H Chloride 109 H Urine Ketones TRACE H Urine Blood SMALL H Urine Nitrite POSITIVE H Ur Leukocyte Esterase LARGE H Discharge - Discharge Clinical Impression: Abdominal pain Qualifiers: Abdominal location: generalized Qualified Code(s): R10.84 - Generalized abdominal pain UTI (urinary tract infection) Qualifiers: Urinary tract infection type: site unspecified Hematuria presence: without hematuria Qualified Code(s): N39.0 - Urinary tract infection, site not specified Condition: Stable Disposition: HOME, SELF-CARE Additional Instructions: URINARY TRACT INFECTION: Your evaluation indicates that you have a urinary tract infection. This is due to germs growing in the bladder. This is a common problem. This infection usually responds quickly to antibiotics. Your antibiotic should be taken exactly as prescribed. Drink plenty of fluids -- three to four quarts a day. Occasionally, a bladder anesthetic will be prescribed to help stop the feeling of urgency until the antibiotic has a chance to clear the infection. This may cause your urine to be dark orange. Certain urine infections require a culture. If the doctor obtained a culture, the results will be back in two days. You should call to see if a change in treatment is needed. A repeat urinalysis after you finish treatment is often recommended. The physician will let you know if further testing is required. Call the doctor if you develop fever, chills, flank pain, inability to urinate, or blood in the urine. CEPHALEXIN: The antibiotic you've been prescribed is a member of the cephalosporin class. This type of antibiotic covers a wide variety of infections, including those of the skin, lungs, and urinary tract. It's useful for staph infections. This antibiotic is slightly similar to the penicillin family. In rare cases , a person who is allergic to penicillin will also be allergic to this medication. If you have had a severe allergic reaction to penicillin, and have not taken this antibiotic since that time, notify your doctor. Antibiotics which cover many germs ("broad spectrum" antibiotics) are more likely to cause diarrhea or "yeast" infections. Women prone to vaginal yeast problems may suffer an attack after taking this antibiotic. In infants, oral thrush (white spots "stuck" on the cheek) or yeast diaper rash may result. See your doctor if these problems occur. Call at once if you develop itching, hives , shortness of breath, or lightheadedness. Continue taking all your medications as prescribed by your primary doctor. Please call your doctor today and schedule a follow-up appointment for your visit to the ED and your UTI. Please be sure to take your seizure medicines as well as your medicine for your C. difficile FOLLOW-UP CARE: If you have been referred to a physician for follow-up care, call the physician s office for an appointment as you were instructed or within the next two days. If you experience worsening or a significant change in your symptoms, notify the physician immediately or return to the Emergency Department at any time for re-evaluation. Prescriptions: Cephalexin Monohydrate [Keflex 500 mg Capsule] 500 mg PO QID #40 capsule Forms: Elevated Blood Pressure
[2016-08-03 05:28] LABS: ABSOLUTE EOSINOPHILS # (AUTO) 0.2 10^3/uL (0.0-0.6); ABSOLUTE LYMPHOCYTES (AUTO) 3.3 10^3/uL (0.5-4.7); ABSOLUTE NEUT (AUTO) 5.6 10^3/uL (1.7-8.2); BASOPHILS % (AUTO) 0.4 % (0-2); EOSINOPHILS % (AUTO) 2.1 % (0-6); HEMATOCRIT 35.6 % (36.0-47.0); HEMOGLOBIN 11.8 g/dL (12.0-15.5); HGB HCT DIFFERENCE -0.2; LYMPHOCYTES % (AUTO) 32.5 % (13-45); MEAN CORPUSCULAR HEMOGLOBIN 32.6 pg (27.0-33.4); MEAN CORPUSCULAR HGB CONC 33.1 g/dL (32.0-36.0); MEAN CORPUSCULAR VOLUME 99 fl (80-97); MONOCYTES % (AUTO) 9.6 % (3-13); RED CELL DISTRIBUTION WIDTH 13.9 % (11.5-14.0); SEGMENTED NEUTROPHILS % (AUTO) 55.4 % (42-78); WHITE BLOOD COUNT 10.1 10^3/uL (4.0-10.5)
[2016-08-03 05:44] LABS: ALANINE AMINOTRANSFERASE 25 U/L (9-52); ALKALINE PHOSPHATASE 59 U/L (38-126); ANION GAP 13 (5-19); ASPARTATE AMINO TRANSFERASE 14 U/L (14-36); BILIRUBIN,DIRECT 0.3 mg/dL (0.0-0.4); BILIRUBIN,TOTAL 0.3 mg/dL (0.2-1.3); BLOOD UREA NITROGEN 16 mg/dL (7-20); CALCIUM 9.6 mg/dL (8.4-10.2); CARBON DIOXIDE 23 mmol/L (22-30); CHLORIDE 109 mmol/L (98-107); CREATININE RESULT 0.77 mg/dL (0.52-1.25); GLUCOSE 106 mg/dL (75-110); LIPASE 164.9 U/L (23-300); POTASSIUM 4.1 mmol/L (3.6-5.0); SODIUM 145.2 mmol/L (137-145); TOTAL PROTEIN 7.3 g/dL (6.3-8.2)
[2016-08-03 06:12] LABS: APPEARANCE,URINE SLIGHTLY-CLOUDY; BILIRUBIN,URINE NEGATIVE (NEGATIVE); GLUCOSE, URINE NEGATIVE (NEGATIVE); KETONES,URINE TRACE mg/dL (NEGATIVE); LEUKOCYTE ESTERASE,URINE LARGE (NEGATIVE); NITRITE,URINE POSITIVE (NEGATIVE); PROTEIN,URINE NEGATIVE (NEGATIVE); URINE SPECIFIC GRAVITY 1.031; UROBILINOGEN,URINE NEGATIVE mg/dL (<2.0)
[2016-08-03] MEDS ORDERED: CEPHALEXIN 500 MG CAPSULE PO ONE (06:43)
[2016-08-03 06:59] VITALS: BP 141/93
== END 2016-08-03 07:25 | disposition home or self-care (01) ==
LOC: ER 04:06
DX: N39.0 Urinary tract infection, site not specified (principal); A04.7 Enterocolitis due to Clostridium difficile; R11.2 Nausea with vomiting, unspecified; R10.84 Generalized abdominal pain; I10 Essential (primary) hypertension; J45.909 Unspecified asthma, uncomplicated; R56.9 Unspecified convulsions; Z96.89 Presence of other specified functional implants; Z79.899 Other long term (current) drug therapy; Z88.1 Allergy status to other antibiotic agents; Z88.8 Allergy status to other drugs, medicaments and biological substances; Z88.2 Allergy status to sulfonamides; Z88.5 Allergy status to narcotic agent; Z87.42 Personal history of other diseases of the female genital tract; Z86.14 Personal history of Methicillin resistant Staphylococcus aureus infection; Z90.49 Acquired absence of other specified parts of digestive tract
CPT/HCPCS: 36415; 80053; 81001; 83690; 85025; 87086; 87088; 87186; 99284

== ENCOUNTER 2016-09-09 14:11 | Inpatient (IN) | payer MEDICAID ==
[2016-09-09] MEDS ORDERED: LEVETIRACETAM 1000 MG/NACL-ISO 100 ML IV ONE (15:18)
--- NOTE | 2016-09-09 15:21 | ER Document Report ---
ED General - General Chief Complaint: Probable Seizure Stated Complaint: POSSIBLE SEIZURE Time Seen by Provider: 09/09/16 14:54 Mode of Arrival: Ambulatory Information source: Patient Notes: This is a 45-year-old female with a long history of seizures, psychiatric issues , hypertension. Patient presents to the emergency room with multiple seizures. She also states that she has been having watery diarrhea and is concerned she may have C. difficile colitis again. She does states she has been under a lot of stress and that her sons has tried to kill himself. Denies any fever, chills, nausea vomiting. He is followed by wound care and DSS and does have a home health nurse as well as home physical therapy. Patient is followed by Dr. Wilson for primary care and she is followed by Dr. Jeremy Luevano in [place] per neurology. MEDS: Dilantin 300 mg BID Keppra 100 mg BID Depakote 1500 mg BID Vimpat 50 mg BID Gabapenten 800 mg TID Oxycodone Clonazepam Lisinopril-HCTZ TRAVEL OUTSIDE OF THE [place] IN LAST 30 DAYS: No - HPI Onset: Just prior to arrival Onset/Duration: Gradual Quality of pain: No pain Severity: None Pain Level: Denies Associated symptoms: denies: Chest pain, Fever, Shortness of breath Exacerbated by: Denies Relieved by: Denies Similar symptoms previously: Yes Recently seen / treated by doctor: Yes - Related Data Allergies/Adverse Reactions: clarithromycin [From Biaxin] Allergy (Verified 07/22/16 23:33) erythromycin base [Erythromycin Base] Allergy (Verified 07/22/16 23:33) naproxen sodium [From Anaprox] Allergy (Verified 07/22/16 23:33) pseudoephedrine HCl [From Sudafed] Allergy (Verified 07/22/16 23:33) Sulfa (Sulfonamide Antibiotics) Allergy (Verified 07/22/16 23:33) tramadol Allergy (Verified 07/23/16 14:45) Past Medical History - General Information source: Patient - Social History Smoking Status: Former Smoker Cigarette use (# per day): No Chew tobacco use (# tins/day): No Frequency of alcohol use: None Drug Abuse: None Lives with: Family Family History: Reviewed & Not Pertinent Patient has suicidal ideation: No Patient has homicidal ideation: No - Past Medical History Cardiac Medical History: Reports: Hx Hypertension Denies: Hx Coronary Artery Disease Pulmonary Medical History: Reports: Hx Asthma Neurological Medical History: Reports: Hx Seizures - Has vagal nerve stimulator. She takes Keppra, Dilantin, and Vimpat Endocrine Medical History: Denies: Hx Diabetes Mellitus Type 1, Hx Diabetes Mellitus Type 2 Renal/ Medical History: Reports: Hx Ovarian Cysts. Denies: Hx Peritoneal Dialysis GI Medical History: Reports: Hx Gastroesophageal Reflux Disease Musculoskeltal Medical History: Reports Hx Musculoskeletal Deformity Skin Medical History: Reports Hx Cellulitis, Reports Hx MRSA Psychiatric Medical History: Reports: Hx Anxiety, Hx Depression Infectious Medical History: Reports: Hx C-Diff, Hx MRSA Past Surgical History: Reports: Hx Section, Hx Cholecystectomy, Hx Gynecologic Surgery - tubal , Hx Orthopedic Surgery - Right tibia intramedullary clare, Hx Tonsillectomy - Immunizations Hx Diphtheria, Pertussis, Tetanus Vaccination: No - unknown Review of Systems - Review of Systems Constitutional: denies: Chills, Fever EENT: No symptoms reported Cardiovascular: No symptoms reported Respiratory: No symptoms reported Gastrointestinal: Diarrhea Genitourinary: No symptoms reported Female Genitourinary: No symptoms reported Musculoskeletal: See HPI Skin: No symptoms reported Hematologic/Lymphatic: No symptoms reported Neurological/Psychological: See HPI Physical Exam - Vital signs Vitals: Temp Pulse Resp BP Pulse Ox 98.2 F 75 16 102/67 98 09/09/16 14:39 09/09/16 14:39 09/09/16 14:39 09/09/16 14:39 09/09/16 14:39 Notes: Physical exam: GENERAL: 45-year-old female, alert and oriented 3, she is crying when she is talking about her sons. Is in no acute distress HEAD: Atraumatic, normocephalic. EYES: Pupils equal round and reactive to light, extraocular movements intact, sclera anicteric, conjunctiva are normal. ENT: TMs normal, nares patent, oropharynx clear without exudates. Moist mucous membranes. NECK: Normal range of motion, supple without lymphadenopathy or JVD. LUNGS: Breath sounds clear to auscultation bilaterally and equal. No wheezes rales or rhonchi. HEART: Regular rate and rhythm without murmurs, rubs or gallops. ABDOMEN: Soft, normoactive bowel sounds. No tenderness to palpation. No guarding, no rebound. No masses appreciated. EXTREMITIES: Normal range of motion, no pitting or edema. No clubbing or cyanosis. NEUROLOGICAL: Cranial nerves II through XII grossly intact. Normal speech, motor 5, all extremities. SKIN: Warm, Dry, normal turgor, no rashes or lesions noted. Course - Re-evaluation Re-evalutation: 09/09/16 19:49 The patient's issues are as follows: Renal failure: Believe this is due to dehydration secondary to diarrhea and decreased p.o. intake. He has been getting IV fluids. Pressure has been on the low side and were holding the blood pressure (lisinopril-HCTZ). Relative Hypotension: secondary to dehydration. Hold BP medications. IV fluids. Diarrhea: If we get a sample, we will send it down for study. Treating supportively at this time. Seizure Disorder: Has not had any observed seizures while in the ER for this for the past 6 hours. She was given an IV load of Keppra. Also given 500 mg of Dilantin orally. Psychiatric: Patient has been overwhelmed with stressors at home. Her son attempted suicide last night. Her other son just joined a local gang. She has been very anxious and very stressed over this. This is contributed to her overmedicating herself which is giving rise to increased lethargy. Distal Fib avulsion fracture: Patient fell in the bathroom in the emergency room when she was trying to bathroom. Head her head and there was no loss of consciousness. She did sustain a distal fibula avulsion fracture which is treated with a splint. I do not believe she is capable of using crutches at this time and a physical therapy evaluation would be a good idea. - Vital Signs Vital signs: Temp Pulse Resp BP Pulse Ox 97.5 F 78 20 113/68 90 L 09/09/16 23:09 09/09/16 23:15 09/09/16 23:09 09/09/16 23:09 09/09/16 23:09 - Laboratory Result Diagrams: 09/09/16 16:04 09/09/16 21:15 Laboratory results interpreted by me: 09/09/16 09/09/16 09/09/16 16:04 16:04 16:04 RBC 3.35 L Hgb 11.0 L Hct 34.3 L MCV 103 H MCHC 31.9 L RDW 14.4 H Chloride 109 H Carbon Dioxide 20 L BUN 27 H Creatinine 1.66 H Est GFR ( Amer) 40 L Est GFR (Non-Af Amer) 33 L Calcium Phenytoin 7.6 L Valproic Acid 34.4 L 09/09/16 21:15 RBC Hgb Hct MCV MCHC RDW Chloride 109 H Carbon Dioxide 19 L BUN 28 H Creatinine 1.48 H Est GFR ( Amer) 46 L Est GFR (Non-Af Amer) 38 L Calcium 8.2 L Phenytoin Valproic Acid - Diagnostic Test Radiology reviewed: Image reviewed, Reports reviewed - No posterior fibula nondisplaced fracture Discharge - Discharge Clinical Impression: Acute kidney injury, Dehydration, Medication abuse, Diarrhea, Distal Fib fracture Condition: Stable Disposition: ADMITTED INPATIENT Admitting Provider: Hospitalist - Dr Shaw Unit Admitted: [facility]
[2016-09-09] MEDS: NORMAL SALINE 1000 ML 1,000 ML IV PRN (15:43)
[2016-09-09 16:22] LABS: ABSOLUTE EOSINOPHILS # (AUTO) 0.1 10^3/uL (0.0-0.6); ABSOLUTE LYMPHOCYTES (AUTO) 2.1 10^3/uL (0.5-4.7); ABSOLUTE MONOCYTES (AUTO) 0.5 10^3/uL (0.1-1.4); ABSOLUTE NEUT (AUTO) 5.1 10^3/uL (1.7-8.2); BASOPHILS % (AUTO) 0.6 % (0-2); EOSINOPHILS % (AUTO) 1.2 % (0-6); HEMATOCRIT 34.3 % (36.0-47.0); HGB HCT DIFFERENCE -1.3; LYMPHOCYTES % (AUTO) 26.4 % (13-45); MEAN CORPUSCULAR HEMOGLOBIN 32.7 pg (27.0-33.4); MEAN CORPUSCULAR HGB CONC 31.9 g/dL (32.0-36.0); MEAN CORPUSCULAR VOLUME 103 fl (80-97); MONOCYTES % (AUTO) 6.7 % (3-13); RED BLOOD COUNT 3.35 10^6/uL (3.72-5.28); RED CELL DISTRIBUTION WIDTH 14.4 % (11.5-14.0); SEGMENTED NEUTROPHILS % (AUTO) 65.1 % (42-78); WHITE BLOOD COUNT 7.9 10^3/uL (4.0-10.5)
[2016-09-09 16:41] LABS: ALANINE AMINOTRANSFERASE 20 U/L (9-52); ALBUMIN 3.8 g/dL (3.5-5.0); ALKALINE PHOSPHATASE 51 U/L (38-126); ANION GAP 14 (5-19); ASPARTATE AMINO TRANSFERASE 27 U/L (14-36); BILIRUBIN,TOTAL 0.5 mg/dL (0.2-1.3); BLOOD UREA NITROGEN 27 mg/dL (7-20); CALCIUM 8.4 mg/dL (8.4-10.2); CARBON DIOXIDE 20 mmol/L (22-30); CHLORIDE 109 mmol/L (98-107); CREATININE RESULT 1.66 mg/dL (0.52-1.25); GLUCOSE 104 mg/dL (75-110); MAGNESIUM 1.9 mg/dL (1.6-2.3); TOTAL PROTEIN 7.3 g/dL (6.3-8.2)
[2016-09-09 16:50] LABS: VALPROIC ACID 34.4 ug/mL (50.0-120.0)
[2016-09-09] MEDS ORDERED: PHENYTOIN SODIUM EXTENDED 100 MG CAPSULE PO ONE ×2 (17:53→20:00)
[2016-09-09] MEDS ORDERED: DIVALPROEX SODIUM 500 MG TAB.SR.24H PO ONE (17:55)
[2016-09-09] MEDS ORDERED: NORMAL SALINE 1000 ML 1,000 ML IV PRN (17:55)
--- NOTE | 2016-09-09 19:39 | RADIOLOGY REPORT (SQ) ---
EXAM DESCRIPTION: ANKLE RIGHT COMPLETE COMPLETED DATE/TIME: 09/09/2016 7:20 pm REASON FOR STUDY: right ankle pain s/p fall COMPARISON: None. NUMBER OF VIEWS: Three views. TECHNIQUE: AP, lateral, and oblique radiographic images acquired of the right ankle. LIMITATIONS: None. FINDINGS: MINERALIZATION: Normal. BONES: Vertical Posterior tibial nondisplaced fracture with extension to the articular surface, the p osterior 10%, no significant step-off, this is best seen on the lateral projection. No other fractur e or dislocation. No worrisome bone lesions. JOINTS: No effusions. SOFT TISSUES: Mild soft tissue swelling. No foreign body. OTHER: Tibial intramedullary hardware appears intact. IMPRESSION: Vertical Posterior tibial nondisplaced fracture with extension to the articular surface, the posterior 10%, no significant step-off, this is best seen on the lateral projection. TECHNICAL DOCUMENTATION: JOB ID: [id number] [email or web address]- All Rights Reserved
[2016-09-09 21:46] LABS: ANION GAP 12 (5-19); BLOOD UREA NITROGEN 28 mg/dL (7-20); CALCIUM 8.2 mg/dL (8.4-10.2); CARBON DIOXIDE 19 mmol/L (22-30); CHLORIDE 109 mmol/L (98-107); CREATININE RESULT 1.48 mg/dL (0.52-1.25); GLUCOSE 103 mg/dL (75-110); SODIUM 140.1 mmol/L (137-145)
[2016-09-09 21:47] LABS: ALCOHOL < 10 mg/dL (NONE DETECTED)
[2016-09-09 22:00] LABS: APPEARANCE,URINE SLIGHTLY-CLOUDY; BILIRUBIN,URINE NEGATIVE (NEGATIVE); GLUCOSE, URINE NEGATIVE (NEGATIVE); KETONES,URINE NEGATIVE (NEGATIVE); LEUKOCYTE ESTERASE,URINE NEGATIVE (NEGATIVE); NITRITE,URINE POSITIVE (NEGATIVE); PROTEIN,URINE 30 mg/dL (NEGATIVE); UROBILINOGEN,URINE NEGATIVE mg/dL (<2.0)
[2016-09-09 22:22] LABS: URINE BARBITURATES SCREEN NEGATIVE; URINE METHADONE SCREEN NEGATIVE; URINE OPIATES LOW NEGATIVE; URINE PHENCYCLIDINE SCREEN NEGATIVE
[2016-09-09] MEDS ORDERED: PHARMACY COMMUNICATION ORDER MC SCH (23:00)
--- NOTE | 2016-09-09 23:42 | EKG REPORT ---
SEVERITY:- ABNORMAL ECG - SINUS RHYTHM NONSPECIFIC T ABNORMALITIES, ANT-LAT LEADS : Confirmed by: Jimmy Andersen 09-Sep-2016 23:41:04
[2016-09-09] MEDS ORDERED: CEFTRIAXONE 1 GM/D5W RTU 1 GM/50 ML RTUPB IV ONE (23:45)
[2016-09-10] MEDS: NORMAL SALINE 1000 ML 1,000 ML IV PRN (01:00)
[2016-09-10] MEDS ORDERED: ACETAMINOPHEN 650 MG SUPP.RECT PR PRN (01:26)
[2016-09-10] MEDS ORDERED: LORAZEPAM INJ 2 MG/1 ML VIAL IV PRN (01:42)
--- NOTE | 2016-09-10 01:57 | PDOC H&P ---
History of Present Illness Admission Date/PCP: 09/09/16 21:[address] Jeremy Luevano, [place] Patient complains of: seizure History of Present Illness: CARINA MCDONNELL is a 45 year old female with known underlying seizure disorder, along with psychiatric issues, on multiple psychotropic medications, along with hypertension who presents to the emergency room for reported multiple seizures. Patient has been discussed with emergency room physician who evaluated the patient. Patient is quite somnolent, likely from multiple medications she received in the emergency room, and while briefly arousable, and maintaining her airway well, is able to provide no history whatsoever in terms of acute or chronic events, review of systems, personal habits, family history, etc. boyfriend is present at her side, but seems to know little about her medical history, though he states he saw patient have more than 1 seizure episode over last 24 hours. No old inpatient records available for review. According to emergency room physician, she has been having watery diarrhea, similar to what she described as previous episode of C. difficile colitis. However, denies fever chills nausea vomiting. Reportedly has been under quite a bit of stress at home, with 1 of her sons attempting suicide in the previous 24 hours. Was also noted to be lethargic when she presented to the emergency room, with emergency room physician feeling this likely secondary to patient unintentionally overmedicating herself at home. When she attempted to walk to the bathroom in the emergency room, she slipped and fell, resulting in a right ankle fracture. Reportedly struck her head, but no loss of consciousness. Avulsion fracture noted on x-ray, with ankle splint applied. . Laboratory results are listed in [facility] and are reviewed. X-ray summary results are listed below, with full report(s) reviewed. . EKG reviewed. Social history/personal habits: Patient unable to provide any information at this point in time. Allergies/adverse reactions are listed in [facility] and are reviewed. Home medications initially autopopulated into [employer] may not accurately reflect patient's true medications, dosages, and/or frequencies. zone maintenance technician to reconcile medications. Unfortunately, patient unable to provide any information at this point in time concerning her medications/dosages/frequencies. REVIEW OF SYSTEMS: See history and present illness. No further information available this point in time. PHYSICAL EXAMINATION: 5 feet 7 inches tall. 108.9 kg. BMI 37.6 kg/m.Temperature 97.5. Pulse 87 and regular. Blood pressure 113/68. Respirations are 20 and unlabored. 96% saturation on room air. Obese somewhat chronically ill-appearing female who nevertheless appears approximately her stated age. As noted above, quite somnolent. Does awaken briefly when spoken to multiple times in a somewhat raised voice, but fairly quickly falls back asleep. Maintaining airway well. Boyfriend present at her side. Female floor nurse Do is present. Skin is warm and dry. No grossly obvious evidence of rash in areas of skin examined. No subcutaneous nodules palpated. ENT: Hearing difficult to adequately evaluate due to her current status. Eyes: No scleral icterus. Pupils equal and reactive to light at 4 mm. [place] conjunctivae. No raccoon eyes. Neck is nontender to palpation. Midline trachea. No palpable thyroid nodule mass enlargement or tenderness. Lymphatic: No palpable cervical or clavicular nodes. Neck and lymphatic exams limited by patient body habitus. Psychiatric: Cannot be adequately evaluated due to her current status. See above. Lungs: Auscultation reveals clear and equal breath sounds bilaterally. No use of accessory respiratory muscles. Cardiovascular: Heart regular rate and rhythm, without gallop murmur or rub. No carotid or abdominal aortic bruits. No left ankle or pedal edema. Mild soft tissue swelling of dorsum of right foot; examination of right ankle and foot limited by ankle splint, which is left in place. Faintly palpable left dorsalis pedis and right posterior tibial pulses. Abdomen:soft obese nontender with positive bowel sounds. Unable to adequately evaluate abdomen for masses or organomegaly due to body habitus. Extremities: Feet are warm and dry. No calf tenderness to compression. No grossly obvious visual evidence of calf swelling. Gentle manipulation of left lower extremity fails to reveal any obvious evidence of injury or instability to the hip or ankle. Neurologic: Patellar reflexes absent. Absent Babinski. Light touch cannot be adequately determined due to her current status. No nystagmus. No rigidity. Past Medical History Past Medical History: Patient not able to provide any information related to past medical history. Cardiac Medical History: Reports: Hypertension Denies: Coronary Artery Disease Pulmonary Medical History: Reports: Asthma Neurological Medical History: Reports: Seizures - Has vagal nerve stimulator. She takes Keppra, Dilantin, and Vimpat Endocrine Medical History: Denies: Diabetes Mellitus Type 1, Diabetes Mellitus Type 2 GI Medical History: Reports: Gastroesophageal Reflux Disease Psychiatric Medical History: Reports: Depression Infectious Medical History: Reports: Clostridium Difficile, Methicillin- Resistant Staph Aureus Past Surgical History Past Surgical History: Reports: Section, Cholecystectomy, Orthopedic Surgery - Right tibia intramedullary clare, Tonsillectomy, Other - Vagal nerve stimulator implant. Social History Information Source: Friend, Emergency Med Personnel, [facility] Records Lives with: Family Smoking Status: Former Smoker Frequency of Alcohol Use: Occasional Hx Recreational Drug Use: No Hx Prescription Drug Abuse: No - Advance Directive Resuscitation Status: Do Not Resuscitate - Portable document in place on chart. Surrogate healthcare decision maker:: Reportedly a son. Family History Family History: Reviewed & Not Pertinent Parental Family History Reviewed: No - Patient cannot provide any information related to same. Children Family History Reviewed: No - Patient cannot provide any information related to same. Sibling(s) Family History Reviewed.: No - Patient cannot provide any information related to same. Medication/Allergy Home Medications: RX: Gabapentin 800 mg PO TID 01/06/15 Albuterol Sulfate [Ventolin HFA MDI 18 GM] 2 puff IH Q6HP PRN 09/10/16 Divalproex Sodium [Divalproex Sodium ER] 1,500 mg PO Q12 09/10/16 Lisinopril/Hydrochlorothiazide [Lisinopril-Hctz 20-12.5 mg Tab] 1 tab PO DAILY 09/10/16 Oxycodone HCl [Oxycodone HCl 10 MG Tablet] 10 mg PO Q12 09/10/16 Promethazine HCl [Phenergan 25 mg Tablet] 25 mg PO Q4HP PRN 09/10/16 RX: Acetaminophen [Tylenol 325 mg Tablet] 650 mg PO Q4HP PRN tablet 09/12/16 RX: Cefuroxime Axetil [Ceftin 500 mg Tablet] 500 mg PO Q12 #14 tablet 09/12/16 RX: Clonazepam [Klonopin] 0.5 mg PO BID #60 tablet 09/12/16 RX: Dextroamphetamine/Amphetamine [Adderall 30 mg Tablet] 60 mg PO DAILY #60 tablet 09/12/16 RX: Divalproex Sodium [Depakote ER 500 mg Tab.sr] 1,500 mg PO Q12 #180 tab.sr.24h 09/12/16 RX: Levetiracetam [Keppra 500 mg Tablet] 500 mg PO Q12 #60 tablet 09/12/16 RX: Oxycodone HCl [Oxy-Ir 5 mg Tablet] 5 mg PO Q6HP PRN #30 tablet 09/12/16 RX: Phenytoin Sodium Extended [Dilantin 100 mg Capsule.er] 100 mg PO Q8 #90 capsule 09/12/16 RX: Walker [Folding Walker] 1 each MC ASDIR PRN #1 each 09/12/16 Allergies/Adverse Reactions: clarithromycin [From Biaxin] Allergy (Verified 07/22/16 23:33) erythromycin base [Erythromycin Base] Allergy (Verified 07/22/16 23:33) naproxen sodium [From Anaprox] Allergy (Verified 07/22/16 23:33) pseudoephedrine HCl [From Sudafed] Allergy (Verified 07/22/16 23:33) Sulfa (Sulfonamide Antibiotics) Allergy (Verified 07/22/16 23:33) tramadol Allergy (Verified 09/10/16 04:01) Physical Exam Vital Signs: Temp Pulse Resp BP Pulse Ox 97.5 F 78 20 113/68 90 L 09/09/16 23:09 09/09/16 23:15 09/09/16 23:09 09/09/16 23:09 09/09/16 23:09 Results Laboratory Results: 09/09/16 21:25 Urine Color RED Urine Appearance SLIGHTLY-CLOUDY Urine pH 5.0 Ur Specific [place] 1.020 Urine Protein 30 H Urine Glucose (UA) NEGATIVE Urine Ketones NEGATIVE Urine Blood SMALL H Urine Nitrite POSITIVE H Ur Leukocyte Esterase NEGATIVE Urine WBC (Auto) 3 Urine RBC (Auto) 2 Impressions: Ankle X-Ray 09/09/16 19:00 IMPRESSION: Vertical Posterior tibial nondisplaced fracture with extension to the articular surface, the posterior 10%, no significant step-off, this is best seen on the lateral projection. Assessment & Plan - Diagnosis (1) Closed right ankle fracture Qualifiers: Encounter type: initial encounter Qualified Code(s): S82.891A - Other fracture of right lower leg, initial encounter for closed fracture Is this a current diagnosis for this admission?: YesPlan: Ankle splint to remain in place. Orthopedic consult. (2) Diarrhea Qualifiers: Diarrhea type: unspecified type Qualified Code(s): R19.7 - Diarrhea , unspecified Is this a current diagnosis for this admission?: YesPlan: Stool for C. difficile negative. Follow clinically at this point in time. (3) Seizure Is this a current diagnosis for this admission?: YesPlan: Seizure precautions. CT scan of brain without contrast. Resume home medications as appropriate once these have been determined and reviewed. Knee high SCDs for DVT prophylaxis, along with subcutaneous heparin. Time spent in evaluation and management of patient: 53 minutes. (4) UTI (urinary tract infection) Qualifiers: Urinary tract infection type: site unspecified Is this a current diagnosis for this admission?: YesPlan: Blood and urine cultures. Recent culture results reviewed. Mercedes. (5) DNR (do not resuscitate) Is this a current diagnosis for this admission?: YesPlan: Portable document on chart. Boyfriend at bedside confirms patient's desire for DNR/DNI status. - Inpatient Certification Based on my medical assessment, after consideration of the patient's comorbidities, presenting symptoms, or acuity I expect that the services needed warrant INPATIENT care.: Yes I certify that my determination is in accordance with my understanding of Medicare's requirements for reasonable and necessary INPATIENT services [42 CFR 412.3e].: Yes Medical Necessity: Significant Comorbidiites Make Outpatient Treatment Too Risky , Need Close Monitoring Due to Risk of Patient Decompensation, Need for IV Antibiotics, Risk of Complication if Not Cared For in Hospital Post Hospital Care: D/C or Transfer Summary
[2016-09-10] MEDS: DEXTROSE 5%-NORMAL SALINE 1,000 ML IV PRN ×2 (02:39→21:13)
--- NOTE | 2016-09-10 02:43 | RADIOLOGY REPORT (SQ) ---
EXAM DESCRIPTION: CT HEAD WITHOUT COMPLETED DATE/TIME: 09/10/2016 2:32 am REASON FOR STUDY: seizure COMPARISON: None. TECHNIQUE: Axial images acquired through the brain without intravenous contrast. Images reviewed wi th bone, brain and subdural windows. Images stored on PACS. All CT scanners at this facility use dose modulation, iterative reconstruction, and/or weight based d osing when appropriate to reduce radiation dose to as low as reasonably achievable (ALARA). [facility]: Dose Right [facility]: CareDose [facility]: Dose Right [facility]: Teradose 4D [facility]: Beat.no RADIATION DOSE: 1267 LIMITATIONS: None. FINDINGS: VENTRICLES: Normal size and contour. CEREBRUM: No masses. No hemorrhage. No midline shift. Normal rich/white matter differentiation. N o evidence for acute infarction. CEREBELLUM: No masses. No hemorrhage. No alteration of density. No evidence for acute infarction. EXTRAAXIAL SPACES: No fluid collections. No masses. ORBITS AND GLOBE: No intra- or extraconal masses. Normal contour of globe without masses. CALVARIUM: No fracture. PARANASAL SINUSES: No fluid or mucosal thickening. SOFT TISSUES: No mass or hematoma. OTHER: No other significant finding. IMPRESSION: NORMAL BRAIN CT WITHOUT CONTRAST. TECHNICAL DOCUMENTATION: JOB ID: [id number] Quality ID # [id number]: Final reports with documentation of one or more dose reduction techniques (e.g., Au tomated exposure control, adjustment of the mA and/or kV according to patient size, use of iterative reconstruction technique) 2010 [email or web address]- All Rights Reserved
[2016-09-10 03:08] LABS: VENOUS BLOOD BASE EXCESS -2.8 mmol/L; VENOUS BLOOD HCO3 23.1 mmol/L (20-32); VENOUS BLOOD PCO2 44.8 mmHg (35-63); VENOUS BLOOD PH 7.33 (7.30-7.42)
[2016-09-10] MEDS ORDERED: LORAZEPAM 1 MG TABLET PO ONE (03:15)
[2016-09-10] MEDS ORDERED: ACETAMINOPHEN 325 MG TABLET PO PRN (03:24)
[2016-09-10] MEDS ORDERED: OXYCODONE HCL IR 5 MG TABLET PO PRN (04:02)
[2016-09-10 06:50] LABS: ABSOLUTE EOSINOPHILS # (AUTO) 0.2 10^3/uL (0.0-0.6); ABSOLUTE LYMPHOCYTES (AUTO) 1.9 10^3/uL (0.5-4.7); ABSOLUTE MONOCYTES (AUTO) 0.6 10^3/uL (0.1-1.4); ABSOLUTE NEUT (AUTO) 4.2 10^3/uL (1.7-8.2); BASOPHILS % (AUTO) 0.4 % (0-2); EOSINOPHILS % (AUTO) 2.4 % (0-6); HEMATOCRIT 30.7 % (36.0-47.0); HGB HCT DIFFERENCE -0.7; LYMPHOCYTES % (AUTO) 27.6 % (13-45); MEAN CORPUSCULAR HEMOGLOBIN 32.9 pg (27.0-33.4); MEAN CORPUSCULAR HGB CONC 32.6 g/dL (32.0-36.0); MEAN CORPUSCULAR VOLUME 101 fl (80-97); MONOCYTES % (AUTO) 9.2 % (3-13); RED BLOOD COUNT 3.04 10^6/uL (3.72-5.28); SEGMENTED NEUTROPHILS % (AUTO) 60.4 % (42-78)
[2016-09-10 07:11] LABS: ANION GAP 11 (5-19); BLOOD UREA NITROGEN 24 mg/dL (7-20); CALCIUM 8.3 mg/dL (8.4-10.2); CARBON DIOXIDE 21 mmol/L (22-30); CHLORIDE 109 mmol/L (98-107); CREATININE RESULT 1.01 mg/dL (0.52-1.25); GLUCOSE 100 mg/dL (75-110); POTASSIUM 3.6 mmol/L (3.6-5.0); SODIUM 140.9 mmol/L (137-145)
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
[2016-09-10] MEDS ORDERED: OLANZAPINE 5 MG TABLET PO ONE (08:48)
[2016-09-10] MEDS: OXYCODONE HCL IR 5 MG TABLET PO PRN (09:56)
[2016-09-10] MEDS: DIVALPROEX SODIUM 500 MG TAB.SR.24H PO SCH ×2 (09:56→21:14)
[2016-09-10] MEDS: LEVETIRACETAM 500 MG TABLET PO SCH ×2 (09:57→21:15)
[2016-09-10] MEDS: HEPARIN SOD (PORCINE) 5,000 UNIT/ML 1 ML SYRINGE SUBCUT SCH ×2 (09:57→21:14)
[2016-09-10] MEDS: GABAPENTIN 300 MG CAPSULE PO SCH ×2 (09:57→17:26)
[2016-09-10] MEDS: CLONAZEPAM 1 MG TABLET PO SCH ×2 (09:59→17:27)
[2016-09-10] MEDS ORDERED: GABAPENTIN PO SCH (10:00)
[2016-09-10] MEDS ORDERED: AMPHETAMINE PO SCH (10:00)
[2016-09-10] MEDS ORDERED: BACLOFEN 20 MG TABLET PO SCH (10:00)
[2016-09-10] MEDS ORDERED: GABAPENTIN 400 MG CAPSULE PO SCH (10:00)
[2016-09-10] MEDS ORDERED: DEXTROAMPHETAMINE PO SCH (10:00)
--- NOTE | 2016-09-10 12:02 | PDOC PROGRESS REPORT ---
Subjective Progress Note for:: 09/10/16 Subjective:: Patient is seen on morning rounds. She apparently was extremely agitated and "manic" acting according to night nursing staff. Security had to be called multiple times. This morning she is awake and oriented x 3. She states she has slept very little in the last 2 days. She describes herself as being extremely ".. wired..". She makes good eye contact with examiner. She is asking to see psychiatry. She denies any illicit drug use. She states she is compliant with her medication, despite her dilantin and depakote levels being subtherapeutic. She has had no further seizures since admission. She is complaining of pain in her right knee, right ankle and back. She denies any shortness of breath or dyspnea. She denies any nausea,vomiting or abdominal pain. Remaining review of systems is negative Physical Exam Vital Signs: Temp Pulse Resp BP Pulse Ox 98.1 F 77 18 105/58 L 100 09/10/16 07:54 09/10/16 07:54 09/10/16 07:54 09/10/16 07:54 09/10/16 07:54 Intake & Output 09/09/16 09/10/16 09/11/16 06:59 06:59 06:59 Intake Total 900 Balance 900 Weight 145.3 kg General appearance: PRESENT: no acute distress, morbidly obese, well-developed, well-nourished Head exam: PRESENT: atraumatic Eye exam: PRESENT: conjunctiva pink, EOMI, PERRLA. ABSENT: scleral icterus Neck exam: ABSENT: carotid bruit, JVD, lymphadenopathy, thyromegaly Respiratory exam: PRESENT: clear to auscultation meng. ABSENT: rales, rhonchi, wheezes Cardiovascular exam: PRESENT: RRR. ABSENT: diastolic murmur, rubs, systolic murmur Pulses: PRESENT: normal dorsalis pedis pul GI/Abdominal exam: PRESENT: normal bowel sounds, soft. ABSENT: distended, guarding, mass, organolmegaly, rebound, tenderness Rectal exam: PRESENT: deferred Extremities exam: PRESENT: full ROM, tenderness, +1 edema. ABSENT: calf tenderness, clubbing, pedal edema Musculoskeletal exam: PRESENT: deformity, tenderness, other - right ankle in immobilizer Neurological exam: PRESENT: alert, awake, oriented to person, oriented to place , oriented to time, oriented to situation, CN II-XII grossly intact. ABSENT: motor sensory deficit Psychiatric exam: PRESENT: agitated, anxious, manic Focused psych exam: PRESENT: flight of ideas Skin exam: PRESENT: dry, intact, warm. ABSENT: cyanosis, rash Results Laboratory Results: 09/10/16 06:32 09/10/16 06:32 09/10/16 09/10/16 09/10/16 02:48 06:32 06:32 WBC 7.0 RBC 3.04 L Hgb 10.0 L Hct 30.7 L MCV 101 H MCH 32.9 MCHC 32.6 RDW 14.0 Plt Count 205 Seg Neutrophils % 60.4 Lymphocytes % 27.6 Monocytes % 9.2 Eosinophils % 2.4 Basophils % 0.4 Absolute Neutrophils 4.2 Absolute Lymphocytes 1.9 Absolute Monocytes 0.6 Absolute Eosinophils 0.2 Absolute Basophils 0.0 VBG pH 7.33 VBG pCO2 44.8 VBG HCO3 23.1 VBG Base Excess -2.8 Sodium 140.9 Potassium 3.6 Chloride 109 H Carbon Dioxide 21 L Anion Gap 11 BUN 24 H Creatinine 1.01 Est GFR ( Amer) > 60 Est GFR (Non-Af Amer) 59 L Glucose 100 Calcium 8.3 L Impressions: Ankle X-Ray 09/09/16 19:00 IMPRESSION: Vertical Posterior tibial nondisplaced fracture with extension to the articular surface, the posterior 10%, no significant step-off, this is best seen on the lateral projection. Head CT 09/10/16 00:00 IMPRESSION: NORMAL BRAIN CT WITHOUT CONTRAST. Assessment & Plan - Diagnosis (1) Seizure Is this a current diagnosis for this admission?: YesPlan: Patient reports having 5 seizures at home, prior to arrival. Her dilantin level and depakote levels are low. She states she has been compliant with her medications. She was loaded with dilantin in the ED (2) UTI (urinary tract infection) Qualifiers: Urinary tract infection type: site unspecified Is this a current diagnosis for this admission?: YesPlan: Continue Ceftriazone (3) ARF (acute renal failure) Qualifiers: Acute renal failure type: unspecified Qualified Code(s): N17.9 - Acute kidney failure, unspecified Is this a current diagnosis for this admission?: YesPlan: Resolving with IV hydration. Patient states she had diarrhea for 3 days at home (4) DNR (do not resuscitate) Is this a current diagnosis for this admission?: YesPlan: Patient has written out of hospital DNR (5) Fracture of posterior malleolus of right tibia Qualifiers: Encounter type: initial encounter Fracture type: closed Qualified Code(s): S82.391A - Other fracture of lower end of right tibia, initial encounter for closed fracture Is this a current diagnosis for this admission?: YesPlan: Orthopedic surgery following.Patient in ankle immobilizer - Time Time Spent with patient: 25-34 minutes Critical Time spent with patient: 25-34 minutes Medications reviewed and adjusted accordingly: Yes Anticipated discharge: Home with Homehealth Within: within 24 hours - Inpatient Certification Based on my medical assessment, after consideration of the patient's comorbidities, presenting symptoms, or acuity I expect that the services needed warrant INPATIENT care.: Yes Medical Necessity: Need for Neurological Checks, Risk of Complication if Not Cared For in Hospital
[2016-09-10] MEDS: FLUCONAZOLE 100 MG TABLET PO SCH (13:38)
[2016-09-10] MEDS: PHENYTOIN SODIUM EXTENDED 100 MG CAPSULE PO SCH ×2 (13:39→21:14)
[2016-09-10] MEDS: CARISOPRODOL 350 MG TABLET PO SCH ×3 (13:45→21:15)
[2016-09-10] MEDS: HALOPERIDOL LACTATE INJ 5 MG/1 ML VIAL IV PRN (17:27)
[2016-09-10] MEDS: CEFTRIAXONE 1 GM/D5W RTU 1 GM/50 ML RTUPB IV SCH (21:15)
[2016-09-11] MEDS: OXYCODONE HCL IR 5 MG TABLET PO PRN ×3 (01:53→19:07)
[2016-09-11] MEDS: HALOPERIDOL LACTATE INJ 5 MG/1 ML VIAL IV PRN ×2 (06:54→23:35)
[2016-09-11] MEDS: PHENYTOIN SODIUM EXTENDED 100 MG CAPSULE PO SCH ×3 (06:55→22:25)
[2016-09-11] MEDS: FLUCONAZOLE 100 MG TABLET PO SCH (10:01)
[2016-09-11] MEDS: CLONAZEPAM 1 MG TABLET PO SCH ×2 (10:01→19:08)
[2016-09-11] MEDS: DIVALPROEX SODIUM 500 MG TAB.SR.24H PO SCH ×2 (10:01→22:27)
[2016-09-11] MEDS: HEPARIN SOD (PORCINE) 5,000 UNIT/ML 1 ML SYRINGE SUBCUT SCH ×2 (10:03→22:27)
[2016-09-11] MEDS: GABAPENTIN 300 MG CAPSULE PO SCH ×2 (10:03→19:08)
[2016-09-11] MEDS: LEVETIRACETAM 500 MG TABLET PO SCH ×2 (10:03→22:26)
[2016-09-11] MEDS: CARISOPRODOL 350 MG TABLET PO SCH ×4 (10:40→22:26)
--- NOTE | 2016-09-11 12:19 | PDOC PROGRESS REPORT ---
Subjective Progress Note for:: 09/11/16 Subjective:: Patient is seen on morning rounds. She apparently was extremely agitated and "manic" acting according to night nursing staff. Security had to be called multiple times. This morning she is awake and oriented x 3. She states she has slept very little in the last 2 days. She describes herself as being extremely ".. wired..". She makes good eye contact with examiner. She is asking to see psychiatry. She denies any illicit drug use. She states she is compliant with her medication, despite her dilantin and depakote levels being subtherapeutic. She has had no further seizures since admission. She is complaining of pain in her right knee, right ankle and back. She denies any shortness of breath or dyspnea. She denies any nausea,vomiting or abdominal pain. Remaining review of systems is negative Physical Exam Vital Signs: Temp Pulse Resp BP Pulse Ox 98.8 F 84 16 95/76 L 97 09/11/16 03:41 09/11/16 07:00 09/11/16 03:41 09/11/16 03:41 09/11/16 03:41 General appearance: PRESENT: no acute distress, morbidly obese, well-developed, well-nourished Head exam: PRESENT: atraumatic, normocephalic Eye exam: PRESENT: conjunctiva pink, EOMI, PERRLA. ABSENT: scleral icterus Ear exam: PRESENT: normal external ear exam Mouth exam: PRESENT: moist, tongue midline Neck exam: ABSENT: carotid bruit, JVD, lymphadenopathy, thyromegaly Respiratory exam: PRESENT: clear to auscultation meng. ABSENT: rales, rhonchi, wheezes Cardiovascular exam: PRESENT: RRR. ABSENT: diastolic murmur, rubs, systolic murmur Pulses: PRESENT: normal dorsalis pedis pul Vascular exam: PRESENT: normal capillary refill GI/Abdominal exam: PRESENT: normal bowel sounds, soft. ABSENT: distended, guarding, mass, organolmegaly, rebound, tenderness Rectal exam: PRESENT: deferred Extremities exam: PRESENT: joint swelling, tenderness, +1 edema - Right ankle in immobilizer Musculoskeletal exam: PRESENT: normal inspection, tenderness Neurological exam: PRESENT: alert, awake, oriented to person, oriented to place , oriented to time, oriented to situation, CN II-XII grossly intact. ABSENT: motor sensory deficit Psychiatric exam: PRESENT: anxious, unusual affect Focused psych exam: PRESENT: flight of ideas Skin exam: PRESENT: dry, intact, warm. ABSENT: cyanosis, rash Results Impressions: Ankle X-Ray 09/09/16 19:00 IMPRESSION: Vertical Posterior tibial nondisplaced fracture with extension to the articular surface, the posterior 10%, no significant step-off, this is best seen on the lateral projection. Head CT 09/10/16 00:00 IMPRESSION: NORMAL BRAIN CT WITHOUT CONTRAST. Assessment & Plan - Diagnosis (1) Seizure Is this a current diagnosis for this admission?: YesPlan: Patient reports having 5 seizures at home, prior to arrival. Her dilantin level and depakote levels are low. She states she has been compliant with her medications. She was loaded with dilantin in the ED (2) UTI (urinary tract infection) Qualifiers: Urinary tract infection type: site unspecified Is this a current diagnosis for this admission?: YesPlan: Continue Ceftriazone (3) ARF (acute renal failure) Qualifiers: Acute renal failure type: unspecified Qualified Code(s): N17.9 - Acute kidney failure, unspecified Is this a current diagnosis for this admission?: YesPlan: Resolving with IV hydration. Patient states she had diarrhea for 3 days at home (4) DNR (do not resuscitate) Is this a current diagnosis for this admission?: YesPlan: Patient has written out of hospital DNR (5) Fracture of posterior malleolus of right tibia Qualifiers: Encounter type: initial encounter Fracture type: closed Qualified Code(s): S82.391A - Other fracture of lower end of right tibia, initial encounter for closed fracture Is this a current diagnosis for this admission?: YesPlan: Orthopedic surgery following.Patient in ankle immobilizer - Time Time Spent with patient: 25-34 minutes Critical Time spent with patient: 15-24 minutes Medications reviewed and adjusted accordingly: Yes Anticipated discharge: Home with Homehealth - Inpatient Certification Based on my medical assessment, after consideration of the patient's comorbidities, presenting symptoms, or acuity I expect that the services needed warrant INPATIENT care.: Yes I certify that my determination is in accordance with my understanding of Medicare's requirements for reasonable and necessary INPATIENT services [42 CFR 412.3e].: Yes Medical Necessity: Need for Neurological Checks
[2016-09-11] MEDS: CEFTRIAXONE 1 GM/D5W RTU 1 GM/50 ML RTUPB IV SCH (22:27)
[2016-09-12] MEDS ORDERED: CEFUROXIME 500 MG TABLET PO SCH (10:00)
[2016-09-12] MEDS: PHENYTOIN SODIUM EXTENDED 100 MG CAPSULE PO SCH (11:00)
[2016-09-12] MEDS: FLUCONAZOLE 100 MG TABLET PO SCH (11:11)
[2016-09-12] MEDS: CLONAZEPAM 1 MG TABLET PO SCH (11:12)
[2016-09-12] MEDS: DIVALPROEX SODIUM 500 MG TAB.SR.24H PO SCH (11:14)
[2016-09-12] MEDS: LEVETIRACETAM 500 MG TABLET PO SCH (11:15)
[2016-09-12] MEDS: GABAPENTIN 300 MG CAPSULE PO SCH (11:16)
[2016-09-12] MEDS: OXYCODONE HCL IR 5 MG TABLET PO PRN (11:17)
[2016-09-12] MEDS: CARISOPRODOL 350 MG TABLET PO SCH (11:21)
[2016-09-12] MEDS: HEPARIN SOD (PORCINE) 5,000 UNIT/ML 1 ML SYRINGE SUBCUT SCH (11:22)
[2016-09-12 13:43] VITALS: BP 95/50
--- NOTE | 2016-09-12 15:39 | PDOC DISCHARGE SUMMARY ---
General - Admit/Disc Date/PCP Admission Date/Primary Care Provider: 09/11/16 09:18 Discharge Date: 09/12/16 - Discharge Diagnosis (1) Seizure Is this a current diagnosis for this admission?: YesSummary: Continue depakote, keppra, and dilantin. She was subtherapeutic on dilantin and keppra levels. We will have levels rechecked next week by home health and follow up with her PCP (2) UTI (urinary tract infection) Is this a current diagnosis for this admission?: YesSummary: Ceftin 500 mg bid x 7 days (3) ARF (acute renal failure) Is this a current diagnosis for this admission?: YesSummary: Resolved secondary to dehydration (4) DNR (do not resuscitate) Is this a current diagnosis for this admission?: Yes (5) Fracture of posterior malleolus of right tibia Is this a current diagnosis for this admission?: YesSummary: Patient is in a high Tide boot, follow up with orthopedics - Additional Information Resuscitation Status: Do Not Resuscitate Discharge Diet: Regular Discharge Activity: Activity As Tolerated, Balance Activity w/Rest, Keep Legs Elevated Home Medications: Gabapentin 800 mg PO TID 01/06/15 Albuterol Sulfate [Ventolin HFA MDI 18 GM] 2 puff IH Q6HP PRN 09/10/16 Divalproex Sodium [Divalproex Sodium ER] 1,500 mg PO Q12 09/10/16 Lisinopril/Hydrochlorothiazide [Lisinopril-Hctz 20-12.5 mg Tab] 1 tab PO DAILY 09/10/16 Oxycodone HCl [Oxycodone HCl 10 MG Tablet] 10 mg PO Q12 09/10/16 Promethazine HCl [Phenergan 25 mg Tablet] 25 mg PO Q4HP PRN 09/10/16 Acetaminophen [Tylenol 325 mg Tablet] 650 mg PO Q4HP PRN tablet 09/12/16 Cefuroxime Axetil [Ceftin 500 mg Tablet] 500 mg PO Q12 #14 tablet 09/12/16 Clonazepam [Klonopin] 0.5 mg PO BID #60 tablet 09/12/16 Dextroamphetamine/Amphetamine [Adderall 30 mg Tablet] 60 mg PO DAILY #60 tablet 06/19/17 Divalproex Sodium [Depakote ER 500 mg Tab.sr] 1,500 mg PO Q12 #180 tab.sr.24h Levetiracetam [Keppra 500 mg Tablet] 500 mg PO Q12 #60 tablet 09/12/16 Oxycodone HCl [Oxy-Ir 5 mg Tablet] 5 mg PO Q6HP PRN #30 tablet 09/12/16 Phenytoin Sodium Extended [Dilantin 100 mg Capsule.er] 100 mg PO Q8 #90 capsule 09/12/16 Walker [Folding Walker] 1 each MC ASDIR PRN #1 each 09/12/16 History of Present Illness Patient complains of: Seizure and fall with right ankle pain History of Present Illness: CARINA MCDONNELL is a 45 year old female with known underlying seizure disorder, along with psychiatric issues, on multiple psychotropic medications, along with hypertension who presents to the emergency room for reported multiple seizures. Patient has been discussed with emergency room physician who evaluated the patient. Patient is quite somnolent, likely from multiple medication she received in the emergency room, and while briefly arousable, and maintaining her airway well, and is able to provide no history whatsoever in terms of acute or chronic events, review of systems, personal habits, family history, etc. boyfriend is present at her side, but seems to know little about her medical history. No old inpatient records available for review. According to emergency room physician, she has been having watery diarrhea, similar to what she described as previous episode of C. difficile colitis. However, denies fever chills nausea vomiting. Reportedly has been under quite a bit of stress at home, with 1 of her sons attempting suicide in the previous 24 hours. Was also noted to be lethargic when she presented to the emergency room, with emergency room physician feeling this likely secondary to patient unintentionally overmedicating herself at home. When she attempted to walk to the bathroom in the emergency room, she slipped and fell, resulting in a right ankle fracture. Reportedly struck her head, but no loss of consciousness. Avulsion fracture noted on x-ray, with ankle splint applied. . Hospital Course Hospital Course: Patient was admitted to the [facility] on telemetry. She remained very agitated almost manic-like overnight. Security had to be called by nursing staff multiple times at the patient's request. She is orthopedic consult placed with Dr. Woodard for her right malleolus fracture. He recommended a nonsurgical approach to her fracture. She was placed in a high tide boot. She had physical therapy consulted for mobilization. Initially she had some difficulty mobilizing secondary to pain and her morbid obese habitus. She was started on broad spectrum IV antibiotics for UTI, blood and urine cultures were pending. She was transitioned to oral antibiotics for discharge. She was able to ambulate with physical therapy. She will be discharged home with home health physical therapy and nursing. Physical Exam Vital Signs: Temp Pulse Resp BP Pulse Ox 98.5 F 87 22 H 95/50 L 96 09/12/16 13:38 09/12/16 13:38 09/12/16 13:38 09/12/16 13:38 09/12/16 13:38 Intake & Output 09/11/16 09/12/16 09/13/16 06:59 06:59 06:59 Intake Total 932 Output Total 300 Balance 632 Weight 146.1 kg General appearance: PRESENT: no acute distress, morbidly obese, well-developed, well-nourished Head exam: PRESENT: atraumatic, normocephalic Eye exam: PRESENT: conjunctiva pink, EOMI, PERRLA. ABSENT: scleral icterus Ear exam: PRESENT: normal external ear exam Mouth exam: PRESENT: moist, tongue midline Neck exam: ABSENT: carotid bruit, JVD, lymphadenopathy, thyromegaly Respiratory exam: PRESENT: clear to auscultation meng. ABSENT: rales, rhonchi, wheezes Cardiovascular exam: PRESENT: RRR. ABSENT: diastolic murmur, rubs, systolic murmur Pulses: PRESENT: normal dorsalis pedis pul Vascular exam: PRESENT: normal capillary refill GI/Abdominal exam: PRESENT: normal bowel sounds, soft. ABSENT: distended, guarding, mass, organolmegaly, rebound, tenderness Rectal exam: ABSENT: deferred, black stool, bloody stool, decreased rectal tone , fecal impaction, heme (-) stool, heme (+) stool, hemorrhoids, laceration, mass , normal inspection, normal prostate, normal rectal tone, prostate enlargement, prostate tenderness, tenderness, other Extremities exam: PRESENT: joint swelling, tenderness, +1 edema - right ankle swelling. ABSENT: calf tenderness, clubbing, pedal edema Musculoskeletal exam: PRESENT: ambulatory, full ROM, normal inspection, tenderness - right outer ankle Neurological exam: PRESENT: alert, awake, oriented to person, oriented to place , oriented to time, oriented to situation, CN II-XII grossly intact. ABSENT: motor sensory deficit Psychiatric exam: PRESENT: anxious, unusual affect Focused psych exam: PRESENT: flight of ideas Skin exam: PRESENT: dry, intact, warm. ABSENT: cyanosis, rash Results Impressions: Ankle X-Ray 09/09/16 19:00 IMPRESSION: Vertical Posterior tibial nondisplaced fracture with extension to the articular surface, the posterior 10%, no significant step-off, this is best seen on the lateral projection. Head CT 09/10/16 00:00 IMPRESSION: NORMAL BRAIN CT WITHOUT CONTRAST. Qualifiers PATEINT BEING DISCHARGED WITH ANY OF THE FOLLOWING DIAGNOSIS?: No Plan Discharge Plan: Home with significant other. Home health nursing and physical therapy Time Spent: Less than 30 Minutes
--- NOTE | 2016-09-12 17:24 | PSYCHOLOGICAL NOTE ---
Psych Note - Psych Note Psych Note: Patient was observed acting "out of control" the previous day in the ED. Patient was yelling, cussing, verbally offensive to [facility] ED staff. Patient could be heard from this clinician's office screaming about her son trying to kill himself. ( Patient's son was seen by [facility] staff to have a healed scar on his throat). Patient was verbally combative, stated once she was going to pull out her IVs to kill herself, and "fired her nurse." A loud thump was heard and the patient was found in the bathroom. Clinician observed the patient sitting on the floor of the bathroom facing the wall between the toilet and sink yelling she broke her leg. [facility] ED staff was attempting to assist the patient back to her bed. Clinician notes prior to evaluation request, security staff approached clinician with concerns about a patient in room 329 that was calling and demanding they come to her room or she would kill herself. It is further noted that upon entering the elevator to go to the patient's room, clinician was told be a pharmacy ancillary they were concerned about the patient in room 329. They continued to disclose the patient refused to hand her home medication list for verification because she wanted to read it aloud to the dietetic technician. They continued to disclose that patient had to frequently stop reading the lists to close her eyes, sigh loudly and state she was "having hallucinations again." Upon entering the patient's room for evaluation, the patient slurred her words, keep "drifting off to sleep" and making little sense. Patient appeared to have and altered mental state; however, when clinician stated thank for her time she would be leaving, patient immediately responded it a clear voice she could still talk. Patient denies wanting to kill herself stating "I never said I wanted to kill myself or that my son was trying to kill himself." Clinician observe the patient to request her significant other to assist her with moving the bed up and down about 7 times within a 5 minute span. During the entire evaluation, the patient would repeated sigh, moan, grunt, and "drift off to sleep." When asked if the patient has taken any of her home medications while she has been at [facility]; patient denied. Clinician stopped evaluation. Patient is alert and orientated to person, place, time and circumstance. Mood has been noted to be manic previously, however patient demonstrated behaviour with clinician that would be congruent with manipulation. Mood would be assessed as irritable was labile affect. Patient denies suicidal and homicidal ideation. Patient was noted to mention hallucinations to a staff member of [facility] ; however, it is noted the patient states she was having hallucinations and was able to identify them starting and stopping during a conversation. This is not congruent with known manifestations and behaviour of responding to internal stimuli. No delusions are noted. Thought process with organized and linear. Thought content demonstrated by behaviour as manipulative. Eye contact was poor. attention and concentration are poor. insight, judgment, and impluse control are poor. Diagnosis Patient is demonstrating behaviour that would correlate with Cluster B personality traits Impression/Plan: Patient is considered psychiatrically cleared for discharge. Patient is demonstrating behaviour that could correlate with manipulation. Clinician notes the patient has show this possible trait with medical concerns in the past. Patient was seen in 11/02/2015 in [facility] ED and the attending physician reported "Pt. states that she has been taking Dilantin since she began having seizures several years ago, but adds that she was instructed to stop taking this medication while at [facility]. Pt. continues to take Depakote. Pt. feels that she needs Dilantin. Pt. adds that she was told her seizures are likely related to mental health issues by her provider at [facility]." Patient has a history identified in patient's chart of substance abuse (cocaine) and noncompliance with medications (Depakote and Dilantin). At this time the patient is not demonstrating any psychosis or verbalizing suicidal/homicidal ideation. While there has been some concern the patient had demonstrated manic type behaviour; during evaluation, the patient's behaviour was identified as manipulative and more congruent with a Cluster B personality type (ie Histrionic /borderline). Patient does not meet IVC criteria per [place] GS 122C. Dr. Sorto was consulted on the care and management of this patient.
== END 2016-09-12 14:15 | disposition home health service (06) | DRG 101 ==
LOC: ER 14:11 → UNDOADMIN 21:17 → EH 21:17 → 3S 22:55 → EH 22:55 → 3S 09-10 01:26 → UNDOADMIN 09-10 01:26 → 3S 09-11 09:18 → 4W 09-12 05:15
PROVIDERS: ADMIT Family Medicine; ATTEND Family Medicine
DX: G40.909 Epilepsy, unspecified, not intractable, without status epilepticus (principal); N17.9 Acute kidney failure, unspecified; N39.0 Urinary tract infection, site not specified; Z68.43 Body mass index [BMI] 50.0-59.9, adult; S82.54XA Nondisplaced fracture of medial malleolus of right tibia, initial encounter for closed fracture; E86.0 Dehydration; Z66 Do not resuscitate; I10 Essential (primary) hypertension; W01.0XXA Fall on same level from slipping, tripping and stumbling without subsequent striking against object, initial encounter; Y92.238 Other place in hospital as the place of occurrence of the external cause; E66.01 Morbid (severe) obesity due to excess calories; E11.9 Type 2 diabetes mellitus without complications; J45.909 Unspecified asthma, uncomplicated; K21.9 Gastro-esophageal reflux disease without esophagitis; F32.9 Major depressive disorder, single episode, unspecified; F60.4 Histrionic personality disorder; Z91.14 Patient's other noncompliance with medication regimen; Z86.14 Personal history of Methicillin resistant Staphylococcus aureus infection; Z79.899 Other long term (current) drug therapy; Z91.81 History of falling; Z90.49 Acquired absence of other specified parts of digestive tract; Z87.891 Personal history of nicotine dependence; Z88.3 Allergy status to other anti-infective agents; Z88.8 Allergy status to other drugs, medicaments and biological substances; Z88.2 Allergy status to sulfonamides; Z88.6 Allergy status to analgesic agent
CPT/HCPCS: 36415; 70450; 80048; 80053; 80164; 80177; 80185; 80307; 81001; 82803; 83735; 84443; 84484; 84703; 85025; 87040; 87493; 93005; 93010; 96361; 96365; 99285; J0696; J1630; J1644; J1953; J3490; J7030; L1902; L4386

== ENCOUNTER → 2016-11-03 | Outpatient (CLI) | payer MEDICAID ==
[2016-11-03 12:44] LABS: ABSOLUTE LYMPHOCYTES (AUTO) 1.2 10^3/uL (0.5-4.7); ABSOLUTE MONOCYTES (AUTO) 0.6 10^3/uL (0.1-1.4); ABSOLUTE NEUT (AUTO) 2.3 10^3/uL (1.7-8.2); BASOPHILS % (AUTO) 0.7 % (0-2); EOSINOPHILS % (AUTO) 1.1 % (0-6); HEMATOCRIT 31.3 % (36.0-47.0); HEMOGLOBIN 10.9 g/dL (12.0-15.5); HGB HCT DIFFERENCE 1.4; LYMPHOCYTES % (AUTO) 29.6 % (13-45); MEAN CORPUSCULAR HEMOGLOBIN 33.3 pg (27.0-33.4); MEAN CORPUSCULAR HGB CONC 34.8 g/dL (32.0-36.0); MEAN CORPUSCULAR VOLUME 96 fl (80-97); MONOCYTES % (AUTO) 13.5 % (3-13); RED BLOOD COUNT 3.27 10^6/uL (3.72-5.28); RED CELL DISTRIBUTION WIDTH 12.3 % (11.5-14.0); SEGMENTED NEUTROPHILS % (AUTO) 55.1 % (42-78); WHITE BLOOD COUNT 4.1 10^3/uL (4.0-10.5)
[2016-11-03 12:55] LABS: APPEARANCE,URINE CLOUDY; BILIRUBIN,URINE NEGATIVE (NEGATIVE); GLUCOSE, URINE NEGATIVE (NEGATIVE); KETONES,URINE NEGATIVE (NEGATIVE); LEUKOCYTE ESTERASE,URINE TRACE (NEGATIVE); NITRITE,URINE POSITIVE (NEGATIVE); PROTEIN,URINE 30 mg/dL (NEGATIVE); URINE SPECIFIC GRAVITY 1.014
[2016-11-03 13:06] LABS: ALANINE AMINOTRANSFERASE 35 U/L (9-52); ALBUMIN 3.7 g/dL (3.5-5.0); ALKALINE PHOSPHATASE 59 U/L (38-126); ANION GAP 12 (5-19); ASPARTATE AMINO TRANSFERASE 20 U/L (14-36); BILIRUBIN,TOTAL 0.6 mg/dL (0.2-1.3); BLOOD UREA NITROGEN 16 mg/dL (7-20); CALCIUM 9.2 mg/dL (8.4-10.2); CARBON DIOXIDE 26 mmol/L (22-30); CHLORIDE 104 mmol/L (98-107); CREATININE RESULT 0.83 mg/dL (0.52-1.25); GLUCOSE 109 mg/dL (75-110); POTASSIUM 3.7 mmol/L (3.6-5.0); SODIUM 142.1 mmol/L (137-145); TOTAL PROTEIN 7.2 g/dL (6.3-8.2)
--- NOTE | 2016-11-03 16:39 | RADIOLOGY REPORT (SQ) ---
EXAM DESCRIPTION: ABDOMEN 2 VIEWS COMPLETED DATE/TIME: 11/03/2016 1:22 pm REASON FOR STUDY: IRRITABLE BOWEL SYNDROME WITHOUT DIARRHEA G40.501 EPILEPTIC SEIZ REL TO EXTRN CAU SES, NOT NTRCT, W STA K58.9 IRRITABLE BOWEL SYNDROME WITHOUT DIARRHEA K59.00 CONSTIPATION, UNSPECIF IED COMPARISON: None. NUMBER OF VIEWS: Two views. TECHNIQUE: Supine and erect/decubitus radiographic images of the abdomen acquired. LIMITATIONS: None. FINDINGS: FREE AIR: None. No abnormal gas collections. LUNG BASES: Clear. BOWEL GAS PATTERN: Nonobstructive pattern. No dilated loops or air fluid levels. CALCIFICATIONS: No suspicious calcifications. SOFT TISSUES: No gross mass or suggestion of organomegaly. HARDWARE: Surgical clips are identified in the right upper quadrant. BONES: No acute fracture. No worrisome bone lesions. OTHER: No other significant finding. IMPRESSION: NO RADIOGRAPHIC EVIDENCE FOR ACUTE ABDOMINAL DISEASE. TECHNICAL DOCUMENTATION: JOB ID: [id number] [employer]- All Rights Reserved
== END ==
LOC: OD 12:03
PROVIDERS: ATTEND Urology
DX: G40.501 Epileptic seizures related to external causes, not intractable, with status epilepticus (principal); K58.9 Irritable bowel syndrome, unspecified; K59.00 Constipation, unspecified; F41.1 Generalized anxiety disorder; R33.9 Retention of urine, unspecified; N93.9 Abnormal uterine and vaginal bleeding, unspecified; F90.9 Attention-deficit hyperactivity disorder, unspecified type; N30.10 Interstitial cystitis (chronic) without hematuria
CPT/HCPCS: 36415; 74020; 80053; 81001; 85025; 87086; 87088; 87186

== ENCOUNTER 2016-12-07 18:19 | Emergency (ER) | payer MEDICAID ==
[2016-12-07] MEDS ORDERED: DIAZEPAM INJ 10 MG/2 ML DISP.SYRIN IV ONE (18:35)
--- NOTE | 2016-12-07 18:37 | ER Document Report ---
ED General - General Stated Complaint: WEAKNESS Time Seen by Provider: 12/07/16 18:33 Notes: Patient is a 46-year-old female with past medical history of epilepsy, morbid obesity, who presents with multiple seizures today. Patient states that her neurologist recently decreased the dosing of multiple of her seizure medications including phenytoin which she believes has triggered more seizures than her baseline. She has not been able to follow-up yet with her neurologist since those medication adjustments were made. States that she has had over 20 seizures today. No clear triggers other than her medication adjustments. She denies any trauma during any of these episodes. She has had similar exacerbations of her seizures in the past with medication adjustments. She denies any fever or infectious symptoms. TRAVEL OUTSIDE OF THE [place] IN LAST 30 DAYS: No - Related Data Allergies/Adverse Reactions: diatrizoate meglumine [From Cystografin] Allergy (Mild, Verified 11/25/16 15:39) Hives clarithromycin [From Biaxin] Allergy (Verified 07/22/16 23:33) erythromycin base [Erythromycin Base] Allergy (Verified 07/22/16 23:33) naproxen sodium [From Anaprox] Allergy (Verified 07/22/16 23:33) pseudoephedrine HCl [From Sudafed] Allergy (Verified 07/22/16 23:33) Sulfa (Sulfonamide Antibiotics) Allergy (Verified 07/22/16 23:33) tramadol Allergy (Verified 09/10/16 04:01) Past Medical History - General Information source: Patient - Social History Smoking Status: Never Smoker Frequency of alcohol use: None Drug Abuse: None Lives with: Spouse/Significant other Family History: Reviewed & Not Pertinent - Past Medical History Cardiac Medical History: Reports: Hx Hypertension Denies: Hx Coronary Artery Disease Pulmonary Medical History: Reports: Hx Asthma Neurological Medical History: Reports: Hx Seizures - Has vagal nerve stimulator. She takes Keppra, Dilantin, and Vimpat Endocrine Medical History: Denies: Hx Diabetes Mellitus Type 1, Hx Diabetes Mellitus Type 2 Renal/ Medical History: Reports: Hx Ovarian Cysts. Denies: Hx Peritoneal Dialysis GI Medical History: Reports: Hx Gastroesophageal Reflux Disease Musculoskeltal Medical History: Reports Hx Musculoskeletal Deformity Skin Medical History: Reports Hx Cellulitis, Reports Hx MRSA Psychiatric Medical History: Reports: Hx Anxiety, Hx Depression Infectious Medical History: Reports: Hx C-Diff, Hx MRSA Past Surgical History: Reports: Hx Section, Hx Cholecystectomy, Hx Gynecologic Surgery - tubal , Hx Orthopedic Surgery - Right tibia intramedullary clare, Hx Tonsillectomy, Other - Vagal nerve stimulator implant. - Immunizations Hx Diphtheria, Pertussis, Tetanus Vaccination: No - unknown Review of Systems - Review of Systems Notes: Constitutional: Negative for fever. HENT: Negative for sore throat. Eyes: Negative for visual changes. Cardiovascular: Negative for chest pain. Respiratory: Negative for shortness of breath. Gastrointestinal: Negative for abdominal pain, vomiting or diarrhea. Genitourinary: Negative for dysuria. Musculoskeletal: Negative for back pain. Skin: Negative for rash. Neurological: Negative for headaches, weakness or numbness. 10 point ROS negative except as marked above and in HPI. Physical Exam - Vital signs Vitals: Resp Pulse Ox 17 96 12/07/16 18:36 12/07/16 18:36 Interpretation: Normal Notes: PHYSICAL EXAMINATION: GENERAL: Well-appearing, well-nourished and in no acute distress. HEAD: Atraumatic, normocephalic. EYES: Pupils equal round and reactive to light, extraocular movements intact, sclera anicteric, conjunctiva are normal. ENT: nares patent, oropharynx clear without exudates. Moist mucous membranes. NECK: Normal range of motion, supple without lymphadenopathy LUNGS: Breath sounds clear to auscultation bilaterally and equal. No wheezes rales or rhonchi. HEART: Regular rate and rhythm without murmurs ABDOMEN: Soft, nontender, normoactive bowel sounds. No guarding, no rebound. No masses appreciated. EXTREMITIES: Normal range of motion, no pitting or edema. No cyanosis. NEUROLOGICAL: No focal neurological deficits. Moves all extremities spontaneously and on command. PSYCH: Normal mood, normal affect. SKIN: Warm, Dry, normal turgor, no rashes or lesions noted. Course - Re-evaluation Re-evalutation: 12/07/16 18:36 Presentation of well-appearing patient after having a seizure. Patient has a known history of seizures. Recent medication adjustment by her primary neurologist and states that she has been having increased seizure frequency since that time. The patient has returned to baseline without intervention. No focal neurologic deficits. No infectious symptoms, vital sign abnormalities , or evidence of trauma. No indication for laboratories or imaging based on reassuring evaluation and known history of seizures. However, patient requesting seizure medication levels which I will perform but I have told her that given that she is on 6 different AEDs and a vagal nerve stimulator I will not be making medication adjustments this needs to be performed by her neurologist. Of note, the witnessed seizure-like event here in the emergency department was not consistent with a true seizure. Patient had a flopping motion in the bed and was immediately alert enough to discuss with me all of her medications and dosing within 30 seconds of that "seizure" activity terminating. This would be inconsistent with a generalized seizure which would mandate a postictal state which patient did not have. 12/07/16 19:59 Phenytoin level is almost undetectable. Will load with a 20 mg/kg load and then plan for discharge. Will discharge with return precautions and follow-up recommendations. Verbal discharge instructions given a the bedside and opportunity for questions given. Medication warnings reviewed. Patient is in agreement with this plan and has verbalized understanding of return precautions and the need for primary care follow-up in the next 24-72 hours. - Vital Signs Vital signs: Temp Pulse Resp BP Pulse Ox 13 108/68 97 12/07/16 21:50 12/07/16 21:50 12/07/16 21:50 - Laboratory Result Diagrams: 12/07/16 18:53 Laboratory results interpreted by me: 12/07/16 18:53 Phenytoin 3.4 L Discharge - Discharge Clinical Impression: Seizure Epilepsy Qualifiers: Epilepsy type: unspecified Intractability: not intractable Status epilepticus: without status epilepticus Qualified Code(s): G40.909 - Epilepsy, unspecified, not intractable, without status epilepticus Condition: Good Disposition: HOME, SELF-CARE Additional Instructions: Today you had a seizure. It is very important that you do not engage in any activities that could result in severe injury should you have a seizure. Specifically, do not drive a vehicle, go into a body of water, take a bath, climb ladders, or operate any heavy machinery until you have been cleared by your neurologist. Please return to the ED immediately if you have multiple seizures close together, develop a severe headache, weakness, numbness, difficulty speaking, have a seizure in which you do not return to normal within 1 hour of the seizure, or have any other symptoms that are concerning to you. Referrals: DEE DEE LEWIS DO [Primary Care Provider] - Follow up as needed SANFORD CHRISTENSEN MD [ACTIVE STAFF] - Follow up tomorrow
[2016-12-07 19:26] LABS: ANION GAP 12 (5-19); BLOOD UREA NITROGEN 17 mg/dL (7-20); CARBON DIOXIDE 25 mmol/L (22-30); CHLORIDE 103 mmol/L (98-107); CREATININE RESULT 0.81 mg/dL (0.52-1.25); GLUCOSE 92 mg/dL (75-110); SODIUM 139.9 mmol/L (137-145)
[2016-12-07] MEDS ORDERED: PHENYTOIN SODIUM INJ/PF 250 MG/5 ML SDV IV ONE (19:50)
[2016-12-07] MEDS ORDERED: PROMETHAZINE HCL INJ 25 MG/1 ML VIAL IV ONE (19:58)
[2016-12-07 22:12] VITALS: BP 108/68
== END 2016-12-07 22:11 | disposition home or self-care (01) ==
LOC: ER 18:19
DX: G40.909 Epilepsy, unspecified, not intractable, without status epilepticus (principal); R53.1 Weakness; E66.01 Morbid (severe) obesity due to excess calories
CPT/HCPCS: 99285; 96374; 96375; 36415; 80185; 80048; 80164; J3360; J1165; J2550

== ENCOUNTER 2016-12-08 19:26 | Emergency (ER) | payer MEDICAID ==
--- NOTE | 2016-12-08 20:21 | ER Document Report ---
ED General - General Chief Complaint: Nausea/Vomiting/Diarrhea Stated Complaint: NAUSEA/VOMITING/DIARRHEA Time Seen by Provider: 12/08/16 19:40 Notes: 46-year-old female with past medical history of epilepsy, morbid obesity, who presents with 5 seizures today. She reports almost 2 weeks also of nausea vomiting and diarrhea. She is often noticing pill fragments either in the diarrhea or what she vomits up. She does have a fairly recent history of C. difficile she reports from multiple antibiotics. She also thinks that because her neurologist recently decreased the dosing of multiple of her seizure medications including phenytoin, it has triggered more seizures than her baseline. She reported over 20 seizures yesterday and 5 today. It is unclear if she cleared between each 1 of these. She denies excessive stress, lack of sleep, or other triggers except her medication adjustments. She denies any other infectious symptoms such as cough, cold, rhinorrhea. Other than the nausea vomiting and diarrhea, there is not much change. She has noticed her arm to be red over the right forearm which is painful and red from phenytoin loading at that region yesterday. No distal numbness or tingling. She denies any trauma during any of these episodes. She is on multiple antiepileptics that she states she has been taking as well as has a vagal nerve stimulator that was placed apparently in [place]. TRAVEL OUTSIDE OF THE [place] IN LAST 30 DAYS: No - Related Data Allergies/Adverse Reactions: diatrizoate meglumine [From Cystografin] Allergy (Mild, Verified 11/25/16 15:39) Hives clarithromycin [From Biaxin] Allergy (Verified 07/22/16 23:33) erythromycin base [Erythromycin Base] Allergy (Verified 07/22/16 23:33) naproxen sodium [From Anaprox] Allergy (Verified 07/22/16 23:33) pseudoephedrine HCl [From Sudafed] Allergy (Verified 07/22/16 23:33) Sulfa (Sulfonamide Antibiotics) Allergy (Verified 07/22/16 23:33) tramadol Allergy (Verified 09/10/16 04:01) Past Medical History - Social History Smoking Status: Smoker,Current Status Unk Family History: Reviewed & Not Pertinent - Past Medical History Cardiac Medical History: Reports: Hx Hypertension Denies: Hx Coronary Artery Disease Pulmonary Medical History: Reports: Hx Asthma Neurological Medical History: Reports: Hx Seizures - Has vagal nerve stimulator. She takes Keppra, Dilantin, and Vimpat Endocrine Medical History: Denies: Hx Diabetes Mellitus Type 1, Hx Diabetes Mellitus Type 2 Renal/ Medical History: Reports: Hx Ovarian Cysts. Denies: Hx Peritoneal Dialysis GI Medical History: Reports: Hx Gastroesophageal Reflux Disease Musculoskeltal Medical History: Reports Hx Musculoskeletal Deformity Skin Medical History: Reports Hx Cellulitis, Reports Hx MRSA Psychiatric Medical History: Reports: Hx Anxiety, Hx Depression Infectious Medical History: Reports: Hx C-Diff, Hx MRSA Past Surgical History: Reports: Hx Section, Hx Cholecystectomy, Hx Gynecologic Surgery - tubal , Hx Orthopedic Surgery - Right tibia intramedullary clare, Hx Tonsillectomy, Other - Vagal nerve stimulator implant. - Immunizations Hx Diphtheria, Pertussis, Tetanus Vaccination: No - unknown Review of Systems - Review of Systems -: Yes All other systems reviewed and negative Physical Exam - Vital signs Vitals: Temp Pulse Resp BP Pulse Ox 98 F 84 20 139/102 H 98 12/08/16 19:49 12/08/16 19:49 12/08/16 19:49 12/08/16 19:49 12/08/16 19:49 Interpretation: Hypertensive - Notes Notes: GENERAL: VS as per nursing doc. Well-appearing, well-nourished, morbidly obese female in no acute distress. HEAD: Atraumatic, normocephalic. EYES: Pupils equal round and reactive to light, there is a persisting horizontal nystagmus noted, otherwise extraocular movements intact, sclera anicteric, no conjunctival injection or discharge. ENT: Nares patent, oropharynx clear without exudates. Moist mucous membranes. NECK: Normal range of motion, supple, no carotid bruits. LUNGS: Breath sounds clear to auscultation bilaterally and equal. No wheezes rales or rhonchi. HEART: Normal S1S2. Regular rate and rhythm without murmurs. Equal peripheral pulses. ABDOMEN: Soft, non-tender. EXTREMITIES: Normal range of motion. No calf tenderness. Negative Homans. No edema. NEUROLOGICAL: GCS 15, Cranial nerves II-XII intact. Normal visual wiggins. Normal speech without aphasia. No pronator drift. 5/5 RUE strength, 5/5 RLE strength, 5/5 LUE strength, 5/5 LLE strength. No cerebellar abnormalities including normal finger-nose testing. Negative Babinski, 2+= DTR refelexes. PSYCH: No evidence of suicidal homicidal ideation. No hallucinations. She is somewhat aggressive verbally. Speech is somewhat pressured. SKIN: Warm, Dry, old linear healed lacerations are noted over the left arm., There is an irregular shaped mildly warm erythematous patch she area over the right forearm. There is mild bruising more distally where it appears to have been at an IV site. There are no palpable cords. Hand is not involved and is neurovascularly intact with cap refill less than 2 seconds. Forearm is soft to palpation. Course - Re-evaluation Re-evalutation: 12/08/16 23:13 Patient has had no diarrhea or vomiting here. She is taking p.o. She has had no seizure activity here. I discussed with her all diagnostic findings. She lists a long list of stressors including multiple problems with her children including one who is flowed out of his home due to the hurricane in [place], 17- year-old she is worried about as her has not seen him in months and thinks her is not coming back, her being away though they are soon to be and not paying for school close and other financial issues, and other issues. She has no suicidal or homicidal ideation. She is comfortable with discharge and we will provide her with a prescription for Zofran for home. Her nausea is better after EMS Zofran. - Vital Signs Vital signs: Temp Pulse Resp BP Pulse Ox 98 F 84 16 139/102 H 98 12/08/16 19:49 12/08/16 19:49 12/08/16 20:58 12/08/16 19:49 12/08/16 19:49 - Laboratory Result Diagrams: 12/08/16 20:54 12/08/16 20:54 Laboratory results interpreted by me: 12/08/16 20:54 RBC 3.50 L Hgb 11.7 L Hct 34.3 L MCV 98 H RDW 14.1 H Seg Neutrophils % 40.1 L Lymphocytes % 48.5 H Discharge - Discharge Clinical Impression: Seizure, Vomiting and diarrhea Condition: Good Disposition: HOME-ASSISTED LIVING Additional Instructions: Return for emergency or concern. Contact your neurologist tomorrow for any medication changes. Prescriptions: Ondansetron [Zofran Odt 4 mg Tablet] 1 - 2 tab PO Q4H PRN #15 tab.rapdis PRN Reason: For Nausea/Vomiting Referrals: DEE DEE LEWIS DO [Primary Care Provider] - Follow up as needed SANFORD CHRISTENSEN MD [ACTIVE STAFF] - Follow up tomorrow
[2016-12-08 21:09] LABS: ABSOLUTE BASOPHILS # (AUTO) 0.1 10^3/uL (0.0-0.2); ABSOLUTE EOSINOPHILS # (AUTO) 0.1 10^3/uL (0.0-0.6); ABSOLUTE LYMPHOCYTES (AUTO) 2.9 10^3/uL (0.5-4.7); ABSOLUTE MONOCYTES (AUTO) 0.5 10^3/uL (0.1-1.4); ABSOLUTE NEUT (AUTO) 2.4 10^3/uL (1.7-8.2); BASOPHILS % (AUTO) 1.1 % (0-2); EOSINOPHILS % (AUTO) 1.3 % (0-6); HEMATOCRIT 34.3 % (36.0-47.0); HEMOGLOBIN 11.7 g/dL (12.0-15.5); HGB HCT DIFFERENCE 0.8; LYMPHOCYTES % (AUTO) 48.5 % (13-45); MEAN CORPUSCULAR HEMOGLOBIN 33.3 pg (27.0-33.4); MEAN CORPUSCULAR VOLUME 98 fl (80-97); RED CELL DISTRIBUTION WIDTH 14.1 % (11.5-14.0); SEGMENTED NEUTROPHILS % (AUTO) 40.1 % (42-78); WHITE BLOOD COUNT 5.9 10^3/uL (4.0-10.5)
[2016-12-08 21:22] LABS: ANION GAP 11 (5-19); BLOOD UREA NITROGEN 14 mg/dL (7-20); CALCIUM 9.5 mg/dL (8.4-10.2); CARBON DIOXIDE 28 mmol/L (22-30); CHLORIDE 102 mmol/L (98-107); GLUCOSE 102 mg/dL (75-110); MAGNESIUM 1.6 mg/dL (1.6-2.3); POTASSIUM 4.1 mmol/L (3.6-5.0); SODIUM 141.3 mmol/L (137-145)
[2016-12-08 21:23] LABS: ALCOHOL < 10 mg/dL (NONE DETECTED)
[2016-12-09 00:16] VITALS: BP 129/87
== END 2016-12-09 00:16 | disposition home health service (06) ==
LOC: ER 19:26
DX: R56.9 Unspecified convulsions (principal); R11.2 Nausea with vomiting, unspecified; R19.7 Diarrhea, unspecified; F17.200 Nicotine dependence, unspecified, uncomplicated; E66.01 Morbid (severe) obesity due to excess calories; I10 Essential (primary) hypertension; Z88.2 Allergy status to sulfonamides; Z88.3 Allergy status to other anti-infective agents; Z86.14 Personal history of Methicillin resistant Staphylococcus aureus infection; Z90.49 Acquired absence of other specified parts of digestive tract
CPT/HCPCS: 36415; 80048; 80185; 80307; 83735; 85025; 99284

== ENCOUNTER 2017-01-16 16:35 | Emergency (ER) | payer MEDICAID ==
[2017-01-16] MEDS ORDERED: NORMAL SALINE 1000 ML 1,000 ML IV ONE (17:27)
--- NOTE | 2017-01-16 17:27 | ER Document Report ---
ED Seizure - General Mode of Arrival: Medic Information source: Patient - HPI Patient complains to provider of: History of seizures Current seizure medications: Phenytoin History of: Migraines Associated Symptoms: Other - see notes above <BRANDEN GARCIA - Last Filed: 01/16/17 21:36> <ARON RAJAN - Last Filed: 01/16/17 23:14> - General Chief Complaint: Probable Seizure Stated Complaint: POSSIBLE SEIZURES Time Seen by Provider: 01/16/17 16:46 Notes: 46 year old female with history of epilepsy, vagal nerve stimulator, c-diff, and migraine presents to the ED via EMS complaining of having 16 seizure episodes earlier this afternoon and 3 yesterday. Patient reports that she has been recently stressed due to family issues and believes that it is making her seizures worse. Patient reports that she had c-diff 1 month ago and has not had a hard stool since this episode. Patient has recently seen her PCP (Dr. Wilson ) and has given him a stool sample. Patient is additionally complaining of vomiting, nausea, and dry mouth. Patient also reports head and back pain secondary to falling off a swing yesterday and hitting the concrete sidewalk. Patient was seen in the ED last month secondary to seizures and was given Dilantin. Patient reports that she has been unable to keep her Dilantin levels up secondary to having c-diff 1 month ago. Patient's neurologist (Dr. Christensen) ordered a 72 hour EEG that was conducted at home, but the patient missed the follow up appointment. She explains that she had an EEG performed in the past which showed over 20 seizures. (BRANDEN GARCIA) - Related Data Allergies/Adverse Reactions: diatrizoate meglumine [From Cystografin] Allergy (Mild, Verified 01/16/17 19:05) Hives clarithromycin [From Biaxin] Allergy (Verified 01/16/17 19:05) erythromycin base [Erythromycin Base] Allergy (Verified 01/16/17 19:05) naproxen sodium [From Anaprox] Allergy (Verified 01/16/17 19:05) pseudoephedrine HCl [From Sudafed] Allergy (Verified 01/16/17 19:05) Sulfa (Sulfonamide Antibiotics) Allergy (Verified 01/16/17 19:05) tramadol Allergy (Verified 01/16/17 19:05) Past Medical History - General Information source: Patient - Social History Smoking Status: Never Smoker Chew tobacco use (# tins/day): No Frequency of alcohol use: Occasional Drug Abuse: None Family History: Reviewed & Not Pertinent - Past Medical History Cardiac Medical History: Reports: Hx Hypertension Denies: Hx Coronary Artery Disease Pulmonary Medical History: Reports: Hx Asthma Neurological Medical History: Reports: Hx Seizures - Epilepsy with vagal nerve stimulator. Endocrine Medical History: Denies: Hx Diabetes Mellitus Type 1, Hx Diabetes Mellitus Type 2 Renal/ Medical History: Reports: Hx Ovarian Cysts. Denies: Hx Peritoneal Dialysis GI Medical History: Reports: Hx Gastroesophageal Reflux Disease Musculoskeltal Medical History: Reports Hx Musculoskeletal Deformity Skin Medical History: Reports Hx Cellulitis, Reports Hx MRSA Psychiatric Medical History: Reports: Hx Anxiety, Hx Depression Infectious Medical History: Reports: Hx C-Diff, Hx MRSA Past Surgical History: Reports: Hx Section, Hx Cholecystectomy, Hx Gynecologic Surgery - tubal , Hx Orthopedic Surgery - Right tibia intramedullary clare, Hx Tonsillectomy, Other - Vagal nerve stimulator implant. - Immunizations Hx Diphtheria, Pertussis, Tetanus Vaccination: No - unknown <BRANDEN GARCIA - Last Filed: 01/16/17 21:36> Review of Systems - Review of Systems Constitutional: No symptoms reported EENT: See HPI, Other - dry mouth Cardiovascular: No symptoms reported Respiratory: No symptoms reported Gastrointestinal: See HPI, Nausea, Vomiting, Other - soft stool since C-diff 1 month ago Genitourinary: No symptoms reported Female Genitourinary: No symptoms reported Musculoskeletal: See HPI, Back pain Skin: No symptoms reported Hematologic/Lymphatic: No symptoms reported Neurological/Psychological: See HPI, Seizure, Headaches -: Yes All other systems reviewed and negative <BRANDEN GARCIA - Last Filed: 01/16/17 21:36> Physical Exam <BRANDEN GARCIA - Last Filed: 01/16/17 21:36> <ARON RAJAN - Last Filed: 01/16/17 23:14> - Vital signs Vitals: Resp 12 01/16/17 17:04 - Notes Notes: GENERAL: Alert, interacts well. No acute distress. HEAD: Normocephalic, atraumatic. EYES: Pupils equal, round, and reactive to light. Extraocular movements intact. ENT: Oral mucosa moist, tongue midline. NECK: Full range of motion. Supple. Trachea midline. LUNGS: Clear to auscultation bilaterally, no wheezes, rales, or rhonchi. No respiratory distress. HEART: Regular rate and rhythm. No murmurs, gallops, or rubs. ABDOMEN: Soft, non-tender. Non-distended. Bowel sounds present in all 4 quadrants. Obese. EXTREMITIES: Moves all 4 extremities spontaneously. No edema, radial and dorsalis pedis pulses 2/4 bilaterally. No cyanosis. NEUROLOGICAL: Alert and oriented x3. Normal speech. PSYCH: Normal affect, normal mood. SKIN: Warm, dry, normal turgor. Small abrasion and hematoma to the left side of forehead. (BRANDEN GARCIA) Course - Laboratory Result Diagrams: 01/16/17 19:15 01/16/17 18:10 <BRANDEN GARCIA - Last Filed: 01/16/17 21:36> - Laboratory Result Diagrams: 01/16/17 19:15 01/16/17 18:10 <ARON RAJAN - Last Filed: 01/16/17 23:14> - Re-evaluation Re-evalutation: 01/16/17 19:37 Called to the bedside after came out of the room and stated the patient was having a seizure, patient also reports to me that she had a seizure in radiology however this was not reported to me previously nor is there note in the computer about it being reported to nursing or by radiology. Patient states she know she had a seizure in radiology but then when asked to describe her seizure she says she cannot remember and she thinks she just had a seizure because she does not remember coming back to the room. None of my nurses have witnessed any seizure activity here, patient states she has had 3 seizures since coming to the emergency department, no changes noted on cardiac monitoring that would be consistent with seizure activity. Patient is awake, alert and oriented, apparently had diarrhea, while being cleaned by the nurse is continuing to have diarrhea and telling me that she does not think she is done pooping. This is not consistent with loss of bowel control during a seizure, it is more consistent with functional diarrhea likely related to her recent C. difficile. Patient wants to know what I am going to give her something to stop her seizures such as Ativan or Valium. I told the patient that I would like to wait on her Dilantin level and adjust the Dilantin as needed should it be found to be low however at this time there is no indication for Ativan or Valium as her seizures that she reports she is having no medical personnel have witnessed or not lasting more than 5 minutes, she does clear completely in between and there is no evidence of status epilepticus. Patient who initially appeared somewhat sleepy when I walked in the room immediately started yelling and telling me that I was the worst doctor she had ever had and that she always gets Ativan or Valium for her seizures every single time that she comes to the emergency department. On review of her charts this is untrue. I did discuss with the patient the criteria that would require Ativan or Valium administration such as a seizure that lasted more than 5 minutes. At this point the patient told me she wanted to leave. I told her that I could discharge her if that was what she wanted however her Dilantin level is not back yet and we would not know how to appropriately adjusted the Dilantin until we have that level returned. At this point patient has decided to stay, request something for her back pain, I offered her IV Robaxin which she states she does not want states she wants a different muscle relaxer. She cannot tell me which muscle relaxer she would like, I again offered Robaxin and she stated she wanted something for pain in her back, we discussed that Robaxin will help the pain in her back as it is a muscle relaxer, she agreed to accept the muscle relaxer if she could also have some Ativan or some Valium. I once again reiterated that Ativan and Valium are not indicated at this point. At this point the patient is became quite irate and said "bitch get out of my room" I told the patient I would order the Robaxin and left the room. I will discuss her tests with her again when the Dilantin level has resulted. 01/16/17 19:43 CBC is slight leukocytosis of 11.0, CMP unremarkable and does not show any dehydration from the several weeks if not months of diarrhea that she states she has been having, CT scan of the head does not show any acute process, lumbar spine x-rays are negative, thoracic spine x-rays show arthritis but no significant narrowing or loss of height. No acute change, only chronic degenerative changes. 01/16/17 21:47 The on level was found to be low, patient has had Robaxin ordered and Dilantin ordered as well. Patient at this time is demanding to be tested for C. difficile, we have already discussed that she had C. difficile and has been treated for it and is following up with Dr. Wilson for this week. I told her I am actually happy to send her stool for C. difficile testing at this point however she is now refusing to provide another specimen. Patient has had 2 episodes of diarrhea in the bed. Patient is now demanding to leave before her daily and is gone. Patient is aware of the risks of leaving before the Dilantin has finished infusing. At this point I am putting her discharge papers up and she is welcome to leave at any point. I am concerned that the patient may not be taking her Dilantin as prescribed. I did discuss this with her. I encouraged her to take it as prescribed and continue to follow-up with her neurologist as an outpatient. (ARON RAJAN) - Vital Signs Vital signs: Temp Pulse Resp BP Pulse Ox 20 146/95 H 98 01/16/17 22:00 01/16/17 18:01 01/16/17 22:00 - Laboratory Laboratory results interpreted by me: 01/16/17 01/16/17 01/16/17 18:10 19:15 19:15 WBC 11.0 H Hct 35.6 L MCH 33.5 H Chloride 109 H Phenytoin 3.7 L - EKG Interpretation by Me Additional EKG results interpreted by me: 01/16/17 23:14 EKG shows sinus rhythm at a rate of 82, left axis deviation, normal intervals, no ST segment elevations or depressions, nonspecific T-wave inversions in 1, aVL , V4 through V6 per my interpretation. (ARON RAJAN) Discharge <BRANDEN GARCIA - Last Filed: 01/16/17 21:36> <ARON RAJAN - Last Filed: 01/16/17 23:14> - Discharge Clinical Impression: Subtherapeutic serum dilantin level, Seizure disorder Diarrhea Qualifiers: Diarrhea type: unspecified type Qualified Code(s): R19.7 - Diarrhea, unspecified Condition: Stable Disposition: HOME, SELF-CARE Additional Instructions: Today your Dilantin level was found to be low. We gave you more Dilantin through the IV. Most times when you come to the emergency department your Dilantin level is low. I am concerned that you may not be taking your Dilantin as prescribed. After you stayed in the hospital several days earlier in the year and were given your Dilantin by mouth every day at the appropriate dose your levels were normal. There is no evidence of dehydration from your diarrhea. You recently had C. difficile, you told me you have a follow-up appointment with Dr. Wilson this week. You have a cup at home that you can use to bring a stool sample to the hospital for follow-up testing as he previously ordered. Referrals: SANFORD CHRISTENSEN MD [ACTIVE STAFF] - Follow up in 1 week DEE DEE WILSON DO [Primary Care Provider] - Follow up in 1 week Scribe Attestation: 01/16/17 23:14 I personally performed the services described in the documentation, reviewed and edited the documentation which was dictated to the scribe in my presence, and it accurately records my words and actions. (ARON RAJAN) Scribe Documentation - Scribe Written by Viridiana:: Viridiana Cash, 01/16/2017 1859 acting as scribe for :: Toña <BRANDEN GARCIA - Last Filed: 01/16/17 21:36>
--- NOTE | 2017-01-16 18:54 | RADIOLOGY REPORT (SQ) ---
EXAM DESCRIPTION: CT HEAD WITHOUT COMPLETED DATE/TIME: 01/16/2017 6:43 pm REASON FOR STUDY: fall off swing, seizure, pain COMPARISON: 09/10/2016 TECHNIQUE: Axial images acquired through the brain without intravenous contrast. Images reviewed wi th bone, brain and subdural windows. Images stored on PACS. All CT scanners at this facility use dose modulation, iterative reconstruction, and/or weight based d osing when appropriate to reduce radiation dose to as low as reasonably achievable (ALARA). [facility]: Dose Right [facility]: CareDose [facility]: Dose Right [facility]: Teradose 4D [facility]: Fingo RADIATION DOSE: Up-to-date CT equipment and radiation dose reduction techniques were employed. CTDIv ol: 64.6 - 67.0 mGy. DLP: 2216 mGy-cm. mGy. LIMITATIONS: None. FINDINGS: VENTRICLES: Normal size and contour. CEREBRUM: No masses. No hemorrhage. No midline shift. No evidence for acute infarction. Normal gra y/white matter differentiation. No areas of low density in the white matter. CEREBELLUM: No masses. No hemorrhage. No alteration of density. No evidence for acute infarction. EXTRAAXIAL SPACES: No fluid collections. No masses. ORBITS AND GLOBE: No intra- or extraconal masses. Normal contour of globe without masses. CALVARIUM: No fracture. PARANASAL SINUSES: No fluid or mucosal thickening. SOFT TISSUES: No mass or hematoma. OTHER: No other significant finding. IMPRESSION: NORMAL BRAIN CT WITHOUT CONTRAST. EVIDENCE OF ACUTE STROKE: NO. COMMENT: Quality ID # [id number]: Final reports with documentation of one or more dose reduction techniques (e.g., Automated exposure control, adjustment of the mA and/or kV according to patient size, use of iterative reconstruction technique) TECHNICAL DOCUMENTATION: JOB ID: [id number]- All Rights Reserved
[2017-01-16 19:02] LABS: ALANINE AMINOTRANSFERASE 15 U/L (9-52); ALBUMIN 3.8 g/dL (3.5-5.0); ALKALINE PHOSPHATASE 54 U/L (38-126); ANION GAP 11 (5-19); ASPARTATE AMINO TRANSFERASE 18 U/L (14-36); BILIRUBIN,DIRECT 0.3 mg/dL (0.0-0.4); BILIRUBIN,TOTAL 0.3 mg/dL (0.2-1.3); BLOOD UREA NITROGEN 15 mg/dL (7-20); CALCIUM 8.7 mg/dL (8.4-10.2); CARBON DIOXIDE 24 mmol/L (22-30); CHLORIDE 109 mmol/L (98-107); CREATININE RESULT 0.66 mg/dL (0.52-1.25); GLUCOSE 97 mg/dL (75-110); SODIUM 143.7 mmol/L (137-145); TOTAL PROTEIN 7.1 g/dL (6.3-8.2)
--- NOTE | 2017-01-16 19:09 | EKG REPORT ---
SEVERITY:- ABNORMAL ECG - SINUS RHYTHM BORDERLINE LEFT AXIS DEVIATION NONSPECIFIC T ABNORMALITIES, ANT-LAT LEADS : Confirmed by: Jimmy Andersen 16-Jan-2017 19:08:59
--- NOTE | 2017-01-16 19:21 | RADIOLOGY REPORT (SQ) ---
EXAM DESCRIPTION: T SPINE AP/LAT COMPLETED DATE/TIME: 01/16/2017 7:04 pm REASON FOR STUDY: fall off swing, seizure, pain COMPARISON: None. NUMBER OF VIEWS: Two views. TECHNIQUE: AP and lateral radiographic images acquired of the thoracic spine. LIMITATIONS: None. FINDINGS: MINERALIZATION: Normal. ALIGNMENT: Normal. No scoliosis. VERTEBRAE: No fracture or bone lesion. Maintained height, normal segmentation. DISCS: No significant loss of height or significant narrowing. Osteophytic lipping is identified at multiple levels in the lower thoracic spine. HARDWARE: None in the spine. MEDIASTINUM AND SOFT TISSUES: Normal heart size and aortic contour. No soft tissue abnormality. VISUALIZED LUNG SWEET: Clear. OTHER: No other significant finding. IMPRESSION: Degenerative changes as noted above TECHNICAL DOCUMENTATION: JOB ID: [id number] [employer]- All Rights Reserved
[2017-01-16 19:23] LABS: ABSOLUTE BASOPHILS # (AUTO) 0.1 10^3/uL (0.0-0.2); ABSOLUTE EOSINOPHILS # (AUTO) 0.1 10^3/uL (0.0-0.6); ABSOLUTE LYMPHOCYTES (AUTO) 3.4 10^3/uL (0.5-4.7); ABSOLUTE MONOCYTES (AUTO) 0.7 10^3/uL (0.1-1.4); ABSOLUTE NEUT (AUTO) 6.6 10^3/uL (1.7-8.2); BASOPHILS % (AUTO) 0.8 % (0-2); EOSINOPHILS % (AUTO) 1.2 % (0-6); HEMATOCRIT 35.6 % (36.0-47.0); HEMOGLOBIN 12.5 g/dL (12.0-15.5); HGB HCT DIFFERENCE 1.9; LYMPHOCYTES % (AUTO) 31.1 % (13-45); MEAN CORPUSCULAR HEMOGLOBIN 33.5 pg (27.0-33.4); MEAN CORPUSCULAR HGB CONC 35.3 g/dL (32.0-36.0); MEAN CORPUSCULAR VOLUME 95 fl (80-97); MONOCYTES % (AUTO) 6.6 % (3-13); RED BLOOD COUNT 3.74 10^6/uL (3.72-5.28); RED CELL DISTRIBUTION WIDTH 12.9 % (11.5-14.0); SEGMENTED NEUTROPHILS % (AUTO) 60.3 % (42-78)
--- NOTE | 2017-01-16 19:23 | RADIOLOGY REPORT (SQ) ---
EXAM DESCRIPTION: L SPINE WHOLE COMPLETED DATE/TIME: 01/16/2017 7:04 pm REASON FOR STUDY: fall off swing, seizure, pain COMPARISON: None. NUMBER OF VIEWS: Five views including obliques. TECHNIQUE: AP, lateral, oblique, and sacral radiographic images acquired of the lumbar spine. LIMITATIONS: None. FINDINGS: MINERALIZATION: Normal. SEGMENTATION: Normal. No transitional anatomy. ALIGNMENT: Normal. VERTEBRAE: Maintained height. No fracture or worrisome bone lesion. DISCS: Preserved height. No significant osteophytes or end plate irregularity. POSTERIOR ELEMENTS: Pedicles and facets are intact. No pars defect or posterior arch defects. HARDWARE: None in the spine. PARASPINAL SOFT TISSUES: Normal. PELVIS: Intact as visualized. No fractures or worrisome bone lesions. SI joints intact. OTHER: No other significant finding. IMPRESSION: NORMAL 5 VIEW LUMBAR SPINE. TECHNICAL DOCUMENTATION: JOB ID: [id number]- All Rights Reserved
[2017-01-16] MEDS ORDERED: METHOCARBAMOL INJ/PF 1000 MG/10 ML SDV IV ONE (19:35)
[2017-01-16] MEDS ORDERED: PHENYTOIN SODIUM INJ/PF 250 MG/5 ML SDV IV ONE (19:53)
[2017-01-16] MEDS ORDERED: ONDANSETRON 4 MG TAB.RAPDIS PO ONE (20:46)
[2017-01-16 23:04] VITALS: BP 146/95
== END 2017-01-16 23:04 | disposition home or self-care (01) ==
LOC: ER 16:35
DX: G40.909 Epilepsy, unspecified, not intractable, without status epilepticus (principal); R79.89 Other specified abnormal findings of blood chemistry; R11.2 Nausea with vomiting, unspecified; R68.2 Dry mouth, unspecified; R51 Headache; M54.9 Dorsalgia, unspecified; W17.89XA Other fall from one level to another, initial encounter; I10 Essential (primary) hypertension; Z88.2 Allergy status to sulfonamides; Z88.3 Allergy status to other anti-infective agents; Z86.14 Personal history of Methicillin resistant Staphylococcus aureus infection; Z90.49 Acquired absence of other specified parts of digestive tract
CPT/HCPCS: 93005; 99285; 96361; 96374; 36415; 80185; 85025; 80053; 72110; 72070; 70450; 93010; J1165; J7030

== ENCOUNTER 2017-02-21 07:27 | Day surgery (SDC) | payer MEDICAID ==
[2017-02-21] MEDS ORDERED: VANCOMYCIN HCL 500 MG in DEXTROSE 5%-WATER 100 ML IV PRN (08:00)
[2017-02-21] MEDS ORDERED: DEXTROSE 5%-1/2 NORMAL SALINE 1,000 ML IV PRN (08:01)
[2017-02-21 08:54] LABS: HEMOGLOBIN 11.9 g/dL (12.0-15.5); HGB HCT DIFFERENCE 1.7; MEAN CORPUSCULAR HEMOGLOBIN 32.7 pg (27.0-33.4); MEAN CORPUSCULAR HGB CONC 34.9 g/dL (32.0-36.0); MEAN CORPUSCULAR VOLUME 94 fl (80-97); RED BLOOD COUNT 3.63 10^6/uL (3.72-5.28); RED CELL DISTRIBUTION WIDTH 12.6 % (11.5-14.0); WHITE BLOOD COUNT 6.7 10^3/uL (4.0-10.5)
[2017-02-21] MEDS ORDERED: MIDAZOLAM 2 MG/2 ML INJ ONE (08:57)
[2017-02-21] MEDS ORDERED: FENTANYL CITRATE INJ/PF 100 MCG/2 ML AMPUL ONE (08:57)
[2017-02-21] MEDS ORDERED: BACITRACIN INJ 50,000 UNIT VIAL ONE (08:57)
[2017-02-21 09:15] LABS: ANION GAP 11 (5-19); BLOOD UREA NITROGEN 13 mg/dL (7-20); CALCIUM 8.6 mg/dL (8.4-10.2); CARBON DIOXIDE 22 mmol/L (22-30); CHLORIDE 109 mmol/L (98-107); CREATININE RESULT 0.72 mg/dL (0.52-1.25); GLUCOSE 102 mg/dL (75-110); SODIUM 141.7 mmol/L (137-145)
[2017-02-21] MEDS ORDERED: LIDOCAINE 0.5% INJ-PF (5 MG/ML) 50 ML SDV ONE (10:31)
[2017-02-21] MEDS ORDERED: OXYCODONE-ACETAMINOPHEN 5-325 MG TABLET ONE (12:13)
--- NOTE | 2017-02-21 12:17 | PDOC DISCHARGE SUMMARY ---
Discharge Summary (SDC) - Discharge Final Diagnosis: #1 chronic seizure disorder. 2. Chronic renal insufficiency. 3. Migraines. 4. Multiple comorbidities. Date of Surgery: 02/21/17 Discharge Date: 02/21/17 Condition: Fair Treatment or Instructions: Discharge home [after recovery per ASU criteria]. Diet , as tolerated, when fully awake advance as tolerated. Activities within moderation encouraged. Follow up in my office by appointment in about [1 week]. Call for appointment. Leave wounds [covered], [keep clean and dry, until office visit in 1 week]. Meds per med rec. Hold of on school/work [until evaluation in office]. May shower [in 48 hrs], [try to keep operated area as dry as possible]. Referrals: DEE DEE LEWIS DO [Primary Care Provider] - Discharge Diet: As Tolerated Respiratory Treatments at Home: Deep Breathing/Coughing Discharge Activity: Activity As Tolerated Report the Following to Your Physician Immediately: Shortness of Breath, Unusual Bleeding
--- NOTE | 2017-02-21 12:20 | Operative Report ---
Operative Report DATE OF SURGERY: 02/21/17 PREOPERATIVE DIAGNOSIS: #1 chronic seizure disorder. 2. Chronic renal insufficiency. 3. Migraines. 4. Multiple comorbidities. POSTOPERATIVE DIAGNOSIS: #1 chronic seizure disorder. Post insertion of Port-A- Cath. 2. Chronic renal insufficiency. 3. Migraines. 4. Multiple comorbidities. OPERATION: 1. Ultrasound evaluation and real-time access in right internal jugular vein. 2. Port-A-Cath insertion via real-time access in the right internal jugular vein. 3. Angiogram and interpretation. SURGEON: [employer] OPERATOR: None ANESTHESIA: Moderate Sedation TISSUE REMOVED OR ALTERED: Not applicable. COMPLICATIONS: None. ESTIMATED BLOOD LOSS: 5 mL. INTRAOPERATIVE FINDINGS: Of a satisfactory although somewhat deeply placed internal jugular vein. Ultrasound of great value and safe and reliable access. Satisfactory position and placement of the catheter with the tip just down in the right atrium. Easy egress of blood and ingress of heparinized solution through a single lumen. PROCEDURE: After obtaining informed consent, the patient was taken to the [employer] and positioned supine. The [right] neck and chest were prepared with chlorhexidine and draped out with sterile linen. After the " universal timeout", in which it was verified that the patient continued to receive antibiotic, the procedure commenced. A steriley sheathed ultrasound probe was used to evaluate the [ right] internal jugular vein. Local anesthesia was infiltrated adjacent to the probe. Access into the [right] internal jugular vein was obtained using a micropuncture needle, followed by micropuncture wire and then a micropuncture catheter. This was followed by introduction of a 0.035 guidewire the tip of which was placed down into the inferior vena cava . The port sites was marked , locally anesthetized and incision made. Dissection now proceeded to the deep subcutaneous subcutaneous tissues so that a pocket for the port was made. Meticulous hemostasis was secured and the catheter was tunneled between the 2 incisions. Proximally, the catheter was now positioned using a peel-away sheath. Distally the catheter was tailored to an appropriate length and then mated to the port using the contained fixating device. The port was now placed in the pocket and the catheter optimally positioned. The port was accessed with a Kimbrough needle and an angiogram done under digital subtraction. The findings as dictated. With adequate and satisfactory positioning, both lumens of the chamber were irrigated with heparinized solution. The wounds were now closed using interrupted 3-0 PDS to the subcutaneous tissues and a continuous subcuticular suture of 4-0 Monocryl to the skin. These are reinforced with Steri-Strips over benzoin and then dressings applied. Copies of the dictated operative report for Dr. Anna Ayala MD.
--- NOTE | 2017-02-21 12:47 | RADIOLOGY REPORT (SQ) ---
EXAM DESCRIPTION: PORTACATH INSERTION; GUIDANCE FLUOROSCOPIC COMPLETED DATE/TIME: 02/21/2017 12:07 pm REASON FOR STUDY: G40.309 GEN IDIOPATHIC EPILEPSY G40.309 GEN IDIOPATHIC EPILEPSY, NOT INTRACTABLE, W/O STAT E COMPARISON: Chest films 05/26/2016 FLUOROSCOPY TIME: 1 minutes 6 series of digital images saved to PACS. TECHNIQUE: Intra-operative images acquired during surgical procedure to evaluate progress. NUMBER OF IMAGES: 6 series of digital images LIMITATIONS: None. FINDINGS: Intra procedural imaging and fluoro during placement of of right-sided permanent central l ine with the tip in the superior vena cava. Please see the operative report for further details IMPRESSION: Intra procedural imaging and fluoro COMMENT: Quality ID [id number]: Final reports for procedures using fluoroscopy that document radiation exp osure indices, or exposure time and number of fluorographic images (if radiation exposure indices are not available) Please consult full operative report of the attending physician for description of the procedure. TECHNICAL DOCUMENTATION: JOB ID: [id number] [employer]- All Rights Reserved
[2017-02-21 13:50] VITALS: BP 135/80
== END 2017-02-21 13:15 | disposition home or self-care (01) ==
LOC: CCL 07:27
PROVIDERS: ATTEND Surgery
PROC: 05H533Z Insertion of Infusion Device into Right Subclavian Vein, Percutaneous Approach (ICD-10-PCS; principal; 2017-02-21)
DX: G40.309 Generalized idiopathic epilepsy and epileptic syndromes, not intractable, without status epilepticus (principal); I10 Essential (primary) hypertension; J45.909 Unspecified asthma, uncomplicated; F90.9 Attention-deficit hyperactivity disorder, unspecified type; M54.9 Dorsalgia, unspecified; Z86.14 Personal history of Methicillin resistant Staphylococcus aureus infection; Z79.899 Other long term (current) drug therapy; Z79.891 Long term (current) use of opiate analgesic
CPT/HCPCS: 36415; 85027; 80048; 36561; 76937; 77001; C1752; C1788; J2250; J3490 ×2; J3010; J3370; J1644

== ENCOUNTER 2017-04-07 16:11 | Emergency (ER) | payer MEDICAID ==
[2017-04-07 16:37] VITALS: BP 112/63
== END 2017-04-07 18:06 | disposition left against medical advice (07) ==
LOC: ER 16:11
DX: Z53.21 Procedure and treatment not carried out due to patient leaving prior to being seen by health care provider (principal)

== ENCOUNTER 2018-01-05 10:57 | Emergency (ER) | payer MEDICAID ==
[2018-01-05] MEDS ORDERED: LIDOCAINE 1% INJ-PF (10 MG/ML) 30 ML SDV INJ ONE (11:31)
--- NOTE | 2018-01-05 11:37 | ER Document Report ---
HPI - HPI Pain Level: 3 Notes: Patient is a 47-year-old female with a history of MRSA and previous abscesses who presents to the ED complaining of an abscess to her left posterior forearm times 2-3 days that is now red and painful. Patient believes that she needs an incision and drainage performed. She has not noticed any red streaks. She is eating and drinking without difficulties. Denies any headache, fever, URI, sore throat, chest pain, palpitations, syncope, cough, shortness of breath, wheeze, dyspnea, abdominal pain, nausea/vomiting/diarrhea, urinary retention, dysuria, hematuria, numbness/tingling, muscle paralysis/weakness. - ROS Systems Reviewed and Negative: Yes All other systems reviewed and negative - REPRODUCTIVE Reproductive: DENIES: : Past Medical History - Social History Smoking Status: Unknown if Ever Smoked Family History: Reviewed & Not Pertinent - Past Medical History Cardiac Medical History: Reports: Hx Hypertension Denies: Hx Coronary Artery Disease, Hx Heart Attack Pulmonary Medical History: Reports: Hx Asthma - LAST ASTHMA 3 WEEKS AGO Denies: Hx Bronchitis, Hx COPD, Hx Pneumonia Neurological Medical History: Reports: Hx Seizures - Epilepsy with vagal nerve stimulator.. Denies: Hx Cerebrovascular Accident Endocrine Medical History: Denies: Hx Diabetes Mellitus Type 1, Hx Diabetes Mellitus Type 2 Renal/ Medical History: Reports: Hx Ovarian Cysts. Denies: Hx Peritoneal Dialysis GI Medical History: Reports: Hx Gastroesophageal Reflux Disease Musculoskeletal Medical History: Reports Hx Arthritis, Reports Hx Musculoskeletal Deformity Skin Medical History: Reports Hx Cellulitis, Reports Hx MRSA Psychiatric Medical History: Reports: Hx Anxiety, Hx Depression Infectious Medical History: Reports: Hx C-Diff, Hx MRSA Past Surgical History: Reports: Hx Section, Hx Cholecystectomy, Hx Gynecologic Surgery - tubal , Hx Orthopedic Surgery - Right tibia intramedullary clare, Hx Tonsillectomy, Other - Vagal nerve stimulator implant. - Immunizations Hx Diphtheria, Pertussis, Tetanus Vaccination: No - unknown Vertical Provider Document - CONSTITUTIONAL Agree With Documented VS: Yes Notes: PHYSICAL EXAMINATION: GENERAL: Well-appearing, well-nourished and in no acute distress. LUNGS: Breath sounds clear to auscultation bilaterally and equal. No wheezes rales or rhonchi. HEART: Regular rate and rhythm without murmurs, rubs, gallops. Musculoskeletal: Left UE: FROM to passive/active. Strength 5+/5. Extremities: No cyanosis, clubbing, or edema b/l. Peripheral pulses 2+. Capillary refill less than 3 seconds. NEUROLOGICAL: Normal speech, normal gait. Normal sensory, motor exams PSYCH: Normal mood, normal affect. SKIN: + 3cm area of fluctuance with surrounding 7cm diameter erythema with warmth and tenderness associated. Minimal induration noted near the fluctuance. No streaks or active purulence. - INFECTION CONTROL TRAVEL OUTSIDE OF THE [place] IN LAST 30 DAYS: No Course - Re-evaluation Re-evalutation: 01/05/18 12:15 Patient is an afebrile, well-hydrated, 47-year-old female who presents to the ED with an abscess to her left posterior forearm. Vitals are acceptable without any significant tachycardia, tachypnea, or hypoxia. PE is otherwise unremarkable. Incision and drainage was performed successfully without any complications and packing was placed. Wound culture obtained. Wound dressing placed and wound instructions reviewed. Patient tolerated procedure well without any complications. Patient is nontoxic-appearing and is tolerating p.o. without difficulties. No further labs or imaging warranted at this time. I will send her home with a prescription for clindamycin due to allergies. Wound recheck in 2-3 days with PCM/ED. Return to the ED with any worsening/ concerning symptoms otherwise as reviewed in discharge. Patient is in agreement. - Vital Signs Vital signs: Temp Pulse Resp BP Pulse Ox 97.9 F 65 20 154/83 H 100 01/05/18 11:07 01/05/18 11:07 01/05/18 11:07 01/05/18 11:07 01/05/18 11:07 Procedures - Incision and Drainage Left Arm Time completed: 12:15 - Patient tolerated procedure well without any complications Type: Simple Anesthetic type: 1% Lidocaine mL's of anesthetic: 6 Blade size: 11 I&D procedure: Iodoform packing placed, Sterile dressing applied, Other - chlorhexadine/saline Incision Method: Incision made by scalpel Amount/type of drainage: moderate purulent. Discharge - Discharge Clinical Impression: Abscess Condition: Stable Disposition: HOME, SELF-CARE Instructions: Abscess ([facility]), Clindamycin ([facility]), Post Incision and Drainage Additional Instructions: Do not shower or bathe for 24 hours. After 24 hours she may shower but no submersion of the wound under water. Keep the original dressing on the wound for 24 hours unless the drainage soaks through. Change the dressing daily thereafter and use a small amount of triple antibiotic ointment over the open wound. Return to the ED and/or your PCM in 2-3 days for recheck and continue direction for wound packing. Monitor for any signs of worsening pain or redness , streaks, and/or fever. Return to the ED if noticing any of the above symptoms or as needed. Take medications as directed. Prescriptions: Clindamycin HCl [Cleocin 300 mg Capsule] 300 mg PO QID #40 capsule Mupirocin 1 gm TP TID #1 bottle Forms: Elevated Blood Pressure Referrals: EMIL ANAND MD [ACTIVE STAFF] - Follow up as needed
[2018-01-05 12:42] VITALS: BP 154/89
== END 2018-01-05 12:42 | disposition home or self-care (01) ==
LOC: ER 10:57
DX: L02.413 Cutaneous abscess of right upper limb (principal); Z86.14 Personal history of Methicillin resistant Staphylococcus aureus infection; I10 Essential (primary) hypertension; J45.909 Unspecified asthma, uncomplicated
CPT/HCPCS: 99283; 87070; 87205; 87077; 87186; 10060; A6266; J3490

== ENCOUNTER 2018-01-08 13:31 | Emergency (ER) | payer MEDICAID ==
[2018-01-08 13:43] VITALS: BP 156/84
--- NOTE | 2018-01-08 14:07 | ER Document Report ---
HPI - HPI Pain Level: 4 Notes: Patient is a 47-year-old female who presents to the ED for incision and drainage wound recheck that was performed by myself 3 days ago. Patient states that she has noticed some improvement in her symptoms and is feeling better, but has noted some itching with clindamycin so she would like a different medication. She is otherwise eating and drinking without any difficulties. No other concerns or complaints. No changes in her bowel movements. Denies any headache, fever, URI, sore throat, chest pain, palpitations, syncope, cough, shortness of breath, wheeze, dyspnea, abdominal pain, nausea/vomiting/diarrhea, urinary retention, dysuria, hematuria. - ROS Systems Reviewed and Negative: Yes All other systems reviewed and negative - CONSTITUTIONAL Constitutional: REPORTS: Fever. DENIES: Chills - EENT EENT: DENIES: Sore Throat, Ear Pain, Eye problems - NEURO Neurology: DENIES: Headache, Weakness, Vision blurred, Dizzinesss / Vertigo - CARDIOVASCULAR Cardiovascular: DENIES: Chest pain - RESPIRATORY Respiratory: DENIES: Trouble Breathing, Coughing - GASTROINTESTINAL Gastrointestinal: DENIES: Abdominal Pain, Black / Bloody Stools - URINARY Urinary: DENIES: Dysuria, Urgency, Frequency - REPRODUCTIVE Reproductive: DENIES: : - MUSCULOSKELETAL Musculoskeletal: DENIES: Extremity pain Past Medical History - Social History Smoking Status: Never Smoker Chew tobacco use (# tins/day): No Frequency of alcohol use: None Drug Abuse: None Family History: Reviewed & Not Pertinent Patient has suicidal ideation: No Patient has homicidal ideation: No - Past Medical History Cardiac Medical History: Reports: Hx Hypertension Denies: Hx Coronary Artery Disease, Hx Heart Attack Pulmonary Medical History: Reports: Hx Asthma - LAST ASTHMA 3 WEEKS AGO Denies: Hx Bronchitis, Hx COPD, Hx Pneumonia Neurological Medical History: Reports: Hx Seizures - Epilepsy with vagal nerve stimulator.. Denies: Hx Cerebrovascular Accident Endocrine Medical History: Denies: Hx Diabetes Mellitus Type 1, Hx Diabetes Mellitus Type 2 Renal/ Medical History: Reports: Hx Ovarian Cysts. Denies: Hx Peritoneal Dialysis GI Medical History: Reports: Hx Gastroesophageal Reflux Disease Musculoskeletal Medical History: Reports Hx Arthritis, Reports Hx Musculoskeletal Deformity Skin Medical History: Reports Hx Cellulitis, Reports Hx MRSA Psychiatric Medical History: Reports: Hx Anxiety, Hx Depression Infectious Medical History: Reports: Hx C-Diff, Hx MRSA Past Surgical History: Reports: Hx Section, Hx Cholecystectomy, Hx Gynecologic Surgery - tubal , Hx Orthopedic Surgery - Right tibia intramedullary clare, Hx Tonsillectomy, Other - Vagal nerve stimulator implant. - Immunizations Hx Diphtheria, Pertussis, Tetanus Vaccination: No - unknown Vertical Provider Document - CONSTITUTIONAL Agree With Documented VS: Yes Notes: PHYSICAL EXAMINATION: GENERAL: Well-appearing, well-nourished and in no acute distress. LUNGS: Breath sounds clear to auscultation bilaterally and equal. No wheezes rales or rhonchi. HEART: Regular rate and rhythm without murmurs, rubs, gallops. Musculoskeletal: Rt UE: FROM to passive/active. Strength 5+/5. Extremities: No cyanosis, clubbing, or edema b/l. Peripheral pulses 2+. Capillary refill less than 3 seconds. NEUROLOGICAL: Normal speech, normal gait. Normal sensory, motor exams PSYCH: Normal mood, normal affect. SKIN: Post incision and drainage site noted with packing still in place. There is no worsening erythema, induration, or purulent discharge. There is noted improvement on this exam from previous. She still has minimal tenderness, but that has significantly improved. - INFECTION CONTROL TRAVEL OUTSIDE OF THE [place] IN LAST 30 DAYS: No Course - Re-evaluation Re-evalutation: 01/08/18 14:05 Patient is an afebrile, well-hydrated, 47-year-old female who presents to the ED for wound recheck status post incision and drainage. Vitals are acceptable without any significant tachycardia, tachypnea, or hypoxia. PE is otherwise unremarkable. Wound packing was replaced. Wound culture grew MRSA which is susceptible to her clindamycin that she has been taking. Patient would like a different antibiotic so we will switch her to doxycycline based on her allergy list and C&S. Wound dressing placed and wound instructions reviewed. C. difficile precautions reviewed. Conservative measures for symptoms. Recheck with your PCM in 3-5 days. Return to the ED with any worsening/concerning symptoms otherwise as reviewed in discharge. Patient is in agreement. - Vital Signs Vital signs: Temp Pulse Resp BP Pulse Ox 98.2 F 80 18 156/84 H 96 01/08/18 13:41 01/08/18 13:41 01/08/18 13:41 01/08/18 13:41 01/08/18 13:41 Discharge - Discharge Clinical Impression: Encounter for wound re-check Condition: Stable Disposition: HOME, SELF-CARE Additional Instructions: Wash with soap and water. Keep the original dressing on the wound for 24 hours unless the drainage soaks through. Change the dressing daily thereafter and use a small amount of triple antibiotic ointment over the open wound. See your PCM in 3-5 days for recheck if warranted or as needed otherwise. Wound packing as reviewed. Monitor for any signs of worsening pain or redness, streaks, and/ or fever. Return to the ED if noticing any of the above symptoms or as needed. Take medications as directed. Prescriptions: Doxycycline Hyclate 100 mg PO BID #20 capsule Forms: Elevated Blood Pressure Referrals: DEE DEE LEWIS DO [Primary Care Provider] - Follow up in 3-5 days
== END 2018-01-08 14:30 | disposition home or self-care (01) ==
LOC: ER 13:31
DX: Z48.01 Encounter for change or removal of surgical wound dressing (principal)
CPT/HCPCS: 99282

== ENCOUNTER → 2018-06-25 | Outpatient (CLI) | payer MEDICAID ==
--- NOTE | 2018-06-25 16:51 | RADIOLOGY REPORT (SQ) ---
EXAM DESCRIPTION: KNEE LEFT 4 VIEW COMPLETED DATE/TIME: 06/25/2018 4:19 pm REASON FOR STUDY: S89.92XA UNSPECIFIED INJURY OF LEFT LOWER LEG, INITIAL ENCOUNTER S89.92XA UNSPECI FIED INJURY OF LEFT LOWER LEG, INITIAL ENCOU COMPARISON: None. NUMBER OF VIEWS: Four views. TECHNIQUE: AP, lateral, and both oblique radiographic images acquired of the left knee. LIMITATIONS: None. FINDINGS: MINERALIZATION: Normal. BONES: No acute fracture or dislocation. No worrisome bone lesions. JOINT: No effusion. Mild medial compartment joint space narrowing and bony spurring. SOFT TISSUES: Mild pretibial soft tissue swelling. No radio-opaque foreign body. OTHER: No other significant finding. IMPRESSION: No fracture. No malalignment TECHNICAL DOCUMENTATION: JOB ID: [id number] [employer]- All Rights Reserved Reading location - IP/workstation name: [email or web address]
== END ==
LOC: RAD 15:48
PROVIDERS: ATTEND Family Medicine
DX: S89.92XA Unspecified injury of left lower leg, initial encounter (principal); X58.XXXA Exposure to other specified factors, initial encounter

== ENCOUNTER 2018-08-14 07:49 | Emergency (ER) | payer MEDICAID ==
[2018-08-14 08:54] LABS: ABSOLUTE EOSINOPHILS # (AUTO) 0.1 10^3/uL (0.0-0.6); ABSOLUTE LYMPHOCYTES (AUTO) 1.9 10^3/uL (0.5-4.7); ABSOLUTE MONOCYTES (AUTO) 0.4 10^3/uL (0.1-1.4); ABSOLUTE NEUT (AUTO) 2.9 10^3/uL (1.7-8.2); BASOPHILS % (AUTO) 0.6 % (0-2); EOSINOPHILS % (AUTO) 1.7 % (0-6); HEMATOCRIT 35.8 % (36.0-47.0); LYMPHOCYTES % (AUTO) 35.6 % (13-45); MEAN CORPUSCULAR HEMOGLOBIN 32.4 pg (27.0-33.4); MEAN CORPUSCULAR HGB CONC 33.7 g/dL (32.0-36.0); MEAN CORPUSCULAR VOLUME 96 fl (80-97); MONOCYTES % (AUTO) 7.8 % (3-13); PLATELET COUNT 240 10^3/uL (150-450); RED BLOOD COUNT 3.72 10^6/uL (3.72-5.28); RED CELL DISTRIBUTION WIDTH 13.3 % (11.5-14.0); SEGMENTED NEUTROPHILS % (AUTO) 54.3 % (42-78); TOTAL CELLS COUNTED % (AUTO) 100 %; WHITE BLOOD COUNT 5.3 10^3/uL (4.0-10.5)
[2018-08-14] MEDS ORDERED: NORMAL SALINE 1000 ML 1,000 ML IV ONE (09:08)
--- NOTE | 2018-08-14 09:09 | ER Document Report ---
ED Seizure - General Chief Complaint: Probable Seizure Stated Complaint: POSSIBLE SEIZURE Time Seen by Provider: 08/14/18 09:05 Primary Care Provider: DEE DEE LEWIS DO [Primary Care Provider] - Follow up as needed Notes: 47-year-old female to the emergency department chief complaint of possible seizures. Patient reportedly on Dilantin. History of mental health disorders as well. Apparently had seizures witnessed at home by her significant other. No injuries. No other major issues. - HPI Patient complains to provider of: History of seizures Quality of pain: No pain Severity: Moderate Pain Level: Denies - Related Data Allergies/Adverse Reactions: diatrizoate meglumine [From Cystografin] Allergy (Mild, Verified 01/08/18 13:36) Hives clarithromycin [From Biaxin] Allergy (Verified 01/08/18 13:36) erythromycin base [Erythromycin Base] Allergy (Verified 01/08/18 13:36) naproxen sodium [From Anaprox] Allergy (Verified 01/08/18 13:36) pseudoephedrine HCl [From Sudafed] Allergy (Verified 01/08/18 13:36) Sulfa (Sulfonamide Antibiotics) Allergy (Verified 01/08/18 13:36) tramadol Allergy (Verified 01/08/18 13:36) Past Medical History - General Information source: Patient - Social History Smoking Status: Never Smoker Frequency of alcohol use: None Drug Abuse: None Lives with: Spouse/Significant other Family History: Reviewed & Not Pertinent Patient has suicidal ideation: No Patient has homicidal ideation: No - Past Medical History Cardiac Medical History: Reports: Hx Hypertension Denies: Hx Coronary Artery Disease, Hx Heart Attack Pulmonary Medical History: Reports: Hx Asthma - LAST ASTHMA 3 WEEKS AGO Denies: Hx Bronchitis, Hx COPD, Hx Pneumonia Neurological Medical History: Reports: Hx Seizures - Epilepsy with vagal nerve stimulator.. Denies: Hx Cerebrovascular Accident Endocrine Medical History: Denies: Hx Diabetes Mellitus Type 1, Hx Diabetes Estrella itus Type 2 Renal/ Medical History: Reports: Hx Ovarian Cysts. Denies: Hx Peritoneal Dialysis GI Medical History: Reports: Hx Gastroesophageal Reflux Disease Musculoskeletal Medical History: Reports Hx Arthritis, Reports Hx Musculoskeletal Deformity Skin Medical History: Reports Hx Cellulitis, Reports Hx MRSA Psychiatric Medical History: Reports: Hx Anxiety, Hx Depression Infectious Medical History: Reports: Hx C-Diff, Hx MRSA Past Surgical History: Reports: Hx Section, Hx Cholecystectomy, Hx Gynecologic Surgery - tubal , Hx Orthopedic Surgery - Right tibia intramedullary clare, Hx Tonsillectomy, Other - Vagal nerve stimulator implant. - Immunizations Hx Diphtheria, Pertussis, Tetanus Vaccination: No - unknown Review of Systems - Review of Systems Notes: Constitutional: denies: Chills, Diaphoresis, Fever, Malaise, Weakness EENT: denies: Eye discharge, Blurred vision, Tearing, Double vision, Nose congestion, Nose discharge, Throat swelling, Mouth pain Cardiovascular: denies: Palpitations, Heart racing, Orthopnea, Dyspnea, Chest pain Respiratory: denies: Cough, Hurts to breathe, Wheezing, Shortness of breath Gastrointestinal: denies: Abdominal pain, Diarrhea, Nausea, Vomiting, Black stools, bright red blood in stool Genitourinary: denies: Burning, Dysuria, Discharge, Frequency, Flank pain, Hematuria Musculoskeletal: denies: Joint pain, Joint swelling, Muscle pain, Muscle stiffness, back pain Hematologic/Lymphatic: denies: Anemia, Easy bleeding, Easy bruising, Blood cl ots Neurological/Psychological: denies: Confusion, Dementia, Depression, Loss of consciousness. Positive for seizure Skin: No lesions, no masses, no skin breakdown, no abscesses Physical Exam - Vital signs Vitals: Temp Pulse Resp BP 98.0 F 68 18 180/81 H 08/14/18 08:18 08/14/18 08:18 08/14/18 08:18 08/14/18 08:18 Interpretation: Normal - General General appearance: Appears well, Alert - HEENT Head: Normocephalic, Atraumatic Eyes: Normal Pupils: PERRL - Respiratory Respiratory status: No respiratory distress Chest status: Nontender Breath sounds: Normal Chest palpation: Normal - Cardiovascular Rhythm: Regular Heart sounds: Normal auscultation Murmur: No - Abdominal Inspection: Normal Distension: No distension Bowel sounds: Normal Tenderness: Nontender Organomegaly: No organomegaly - Back Back: Normal, Nontender - Extremities General upper extremity: Normal inspection, Nontender, Normal color, Normal ROM, Normal temperature General lower extremity: Normal inspection, Nontender, Normal color, Normal ROM, Normal temperature, Normal weight bearing. No: Tammi's sign - Neurological Neuro grossly intact: Yes Cognition: Normal Orientation: AAOx4 [place] Coma Scale Eye Opening: Spontaneous [place] Coma Scale Verbal: Oriented [place] Coma Scale Motor: Obeys Commands [place] Coma Scale Total: 15 Speech: Normal Motor strength normal: LUE, RUE, LLE, RLE Sensory: Normal - Psychological Associated symptoms: Agitated, Other - And is quite argumentative. Getting very upset at the mildest irritation. Was arguing with the nurse when I arrived in the room. - Skin Skin Temperature: Warm Skin Moisture: Dry Skin Color: Normal Course - Re-evaluation Re-evalutation: 08/14/18 11:21 Laboratory 08/14/18 08/14/18 08/14/18 08:31 08:31 08:31 WBC 5.3 RBC 3.72 Hgb 12.0 Hct 35.8 L MCV 96 MCH 32.4 MCHC 33.7 RDW 13.3 Plt Count 240 Seg Neutrophils % 54.3 Lymphocytes % 35.6 Monocytes % 7.8 Eosinophils % 1.7 Basophils % 0.6 Absolute Neutrophils 2.9 Absolute Lymphocytes 1.9 Absolute Monocytes 0.4 Absolute Eosinophils 0.1 Absolute Basophils 0.0 Sodium 141.9 Potassium 4.3 Chloride 108 H Carbon Dioxide 26 Anion Gap 8 BUN 12 Creatinine 0.70 Est GFR ( Amer) > 60 Est GFR (Non-Af Amer) > 60 Glucose 103 POC Glucose Calcium 9.1 Magnesium 2.2 Total Bilirubin 0.4 Direct Bilirubin 0.3 Neonat Total Bilirubin Not Reportable Neonat Direct Bilirubin Not Reportable Neonat Indirect Bili Not Reportable AST 15 ALT 16 Alkaline Phosphatase 84 Total Protein 7.6 Albumin 3.9 Serum HCG, Qual Urine Color Urine Appearance Urine pH Ur Specific [place] Urine Protein Urine Glucose (UA) Urine Ketones Urine Blood Urine Nitrite Urine Bilirubin Urine Urobilinogen Ur Leukocyte Esterase Urine WBC (Auto) Urine RBC (Auto) Squamous Epi Cells Auto Urine Mucus (Auto) Urine Ascorbic Acid Phenytoin 14.6 Serum Alcohol < 10 08/14/18 08/14/18 08/14/18 08:31 09:17 10:00 WBC RBC Hgb Hct MCV MCH MCHC RDW Plt Count Seg Neutrophils % Lymphocytes % Monocytes % Eosinophils % Basophils % Absolute Neutrophils Absolute Lymphocytes Absolute Monocytes Absolute Eosinophils Absolute Basophils Sodium Potassium Chloride Carbon Dioxide Anion Gap BUN Creatinine Est GFR ( Amer) Est GFR (Non-Af Amer) Glucose POC Glucose 82 Calcium Magnesium Total Bilirubin Direct Bilirubin Neonat Total Bilirubin Neonat Direct Bilirubin Neonat Indirect Bili AST ALT Alkaline Phosphatase Total Protein Albumin Serum HCG, Qual NEGATIVE Urine Color YELLOW Urine Appearance CLEAR Urine pH 5.0 Ur Specific [place] 1.017 Urine Protein NEGATIVE Urine Glucose (UA) NEGATIVE Urine Ketones NEGATIVE Urine Blood NEGATIVE Urine Nitrite NEGATIVE Urine Bilirubin NEGATIVE Urine Urobilinogen NEGATIVE Ur Leukocyte Esterase NEGATIVE Urine WBC (Auto) 1 Urine RBC (Auto) 1 Squamous Epi Cells Auto <1 Urine Mucus (Auto) OCC Urine Ascorbic Acid NEGATIVE Phenytoin Serum Alcohol - Vital Signs Vital signs: Temp Pulse Resp BP Pulse Ox 98.0 F 68 19 177/79 H 100 08/14/18 08:18 08/14/18 08:18 08/14/18 12:21 08/14/18 12:22 08/14/18 09:01 - Laboratory Result Diagrams: 08/14/18 08:31 08/14/18 08:31 Laboratory results interpreted by me: 08/14/18 08/14/18 08/14/18 08:31 08:31 08:31 Hct 35.8 L Chloride 108 H Valproic Acid < 10.0 L Discharge - Discharge Clinical Impression: Seizure Hypertension Qualifiers: Hypertension type: unspecified Qualified Code(s): I10 - Essential (primary) hypertension Condition: Good Disposition: HOME, SELF-CARE Instructions: Seizure, Known Epileptic ([facility]) Additional Instructions: Follow-up with your regular doctor. Return for any worsening symptoms or concerns. Referrals: DEE DEE LEWIS DO [Primary Care Provider] - Follow up as needed
[2018-08-14 09:17] LABS: ALANINE AMINOTRANSFERASE 16 U/L (9-52); ALBUMIN 3.9 g/dL (3.5-5.0); ALKALINE PHOSPHATASE 84 U/L (38-126); ANION GAP 8 (5-19); ASPARTATE AMINO TRANSFERASE 15 U/L (14-36); BILIRUBIN,DIRECT 0.3 mg/dL (0.0-0.4); BILIRUBIN,TOTAL 0.4 mg/dL (0.2-1.3); BLOOD UREA NITROGEN 12 mg/dL (7-20); CALCIUM 9.1 mg/dL (8.4-10.2); CARBON DIOXIDE 26 mmol/L (22-30); CHLORIDE 108 mmol/L (98-107); GLUCOSE 103 mg/dL (75-110); POTASSIUM 4.3 mmol/L (3.6-5.0); SODIUM 141.9 mmol/L (137-145); TOTAL PROTEIN 7.6 g/dL (6.3-8.2)
[2018-08-14 09:21] LABS: ALCOHOL < 10 mg/dL (NONE DETECTED)
[2018-08-14] MEDS ORDERED: CLONAZEPAM 1 MG TABLET PO ONE (10:11)
[2018-08-14 10:52] LABS: APPEARANCE,URINE CLEAR; BILIRUBIN,URINE NEGATIVE (NEGATIVE); COLOR,URINE YELLOW; GLUCOSE, URINE NEGATIVE (NEGATIVE); KETONES,URINE NEGATIVE (NEGATIVE); LEUKOCYTE ESTERASE,URINE NEGATIVE (NEGATIVE); NITRITE,URINE NEGATIVE (NEGATIVE); PROTEIN,URINE NEGATIVE (NEGATIVE); URINE SPECIFIC GRAVITY 1.017; UROBILINOGEN,URINE NEGATIVE mg/dL (<2.0)
[2018-08-14 11:21] LABS: URINE BARBITURATES SCREEN NEGATIVE; URINE BENZODIAZEPINES SCREEN NEGATIVE; URINE COCAINE SCREEN NEGATIVE; URINE MARIJUANA (THC) SCREEN NEGATIVE; URINE METHADONE SCREEN NEGATIVE; URINE PHENCYCLIDINE SCREEN NEGATIVE
[2018-08-14 11:59] LABS: URINE AMPHETAMINES SCREEN NEGATIVE
[2018-08-14 12:26] VITALS: BP 177/79
== END 2018-08-14 12:58 | disposition home or self-care (01) ==
LOC: ER 07:49
DX: R56.9 Unspecified convulsions (principal); I10 Essential (primary) hypertension; Z88.3 Allergy status to other anti-infective agents; Z88.6 Allergy status to analgesic agent; Z90.49 Acquired absence of other specified parts of digestive tract
CPT/HCPCS: 36591; 99284; 96360; 36415; 82962; 80307 ×2; 83735; 80185; 84703; 85025; 80053; 81001; 80164; J3490; J7030; J1642

== ENCOUNTER 2018-12-19 11:03 | Emergency (ER) | payer MEDICAID ==
[2018-12-19] MEDS ORDERED: NORMAL SALINE 1000 ML 1,000 ML IV ONE (11:27)
--- NOTE | 2018-12-19 11:29 | ER Document Report ---
ED GI/ - General Chief Complaint: Urinary Problem Stated Complaint: URINARY PROBLEM Time Seen by Provider: 12/19/18 11:19 Primary Care Provider: DEE DEE LEWIS DO [Primary Care Provider] - Follow up as needed Mode of Arrival: Ambulatory Information source: Patient Notes: 48-year-old female presented to ED for complaint of decrease in urination. She states she self caths herself and she is having less and less urine each time for the last 2 days. States she has discomfort with urination and burning sometimes a little bit of flecks of blood. She states every time she gets like that she has to be admitted. As stated I would put a Whalen catheter in her and have her follow-up with her primary doctor. She was agreeable to this plan. We will get CBC chemistry and urine and give her a liter of fluids before discharging her. TRAVEL OUTSIDE OF THE [place] IN LAST 30 DAYS: No - HPI Patient complains to provider of: Other Onset: Last week - Dom problems Timing/Duration: Persistent Quality of pain: Burning, Sharp Severity at maximum: Moderate Severity in ED: Moderate Pain Level: 3 Location: Other Vaginal bleeding (Compared to normal period): None - Pain with urination Associated symptoms: Urinary retention, Urinary urgency Exacerbated by: Denies Relieved by: Denies Similar symptoms previously: Yes Recently seen / treated by doctor: No - Related Data Allergies/Adverse Reactions: diatrizoate meglumine [From Cystografin] Allergy (Mild, Verified 01/08/18 13:36) Hives clarithromycin [From Biaxin] Allergy (Verified 01/08/18 13:36) erythromycin base [Erythromycin Base] Allergy (Verified 01/08/18 13:36) naproxen sodium [From Anaprox] Allergy (Verified 01/08/18 13:36) pseudoephedrine HCl [From Sudafed] Allergy (Verified 01/08/18 13:36) Sulfa (Sulfonamide Antibiotics) Allergy (Verified 01/08/18 13:36) tramadol Allergy (Verified 01/08/18 13:36) Past Medical History - General Information source: Patient - Social History Smoking Status: Unknown if Ever Smoked Family History: Reviewed & Not Pertinent - Past Medical History Cardiac Medical History: Reports: Hx Hypertension Denies: Hx Coronary Artery Disease, Hx Heart Attack Pulmonary Medical History: Reports: Hx Asthma - LAST ASTHMA 3 WEEKS AGO Denies: Hx Bronchitis, Hx COPD, Hx Pneumonia Neurological Medical History: Reports: Hx Seizures - Epilepsy with vagal nerve stimulator.. Denies: Hx Cerebrovascular Accident Endocrine Medical History: Denies: Hx Diabetes Mellitus Type 1, Hx Diabetes Mellitus Type 2 Renal/ Medical History: Reports: Hx Ovarian Cysts. 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 - Immunizations Hx Diphtheria, Pertussis, Tetanus Vaccination: No - unknown Review of Systems - Review of Systems Constitutional: No symptoms reported EENT: No symptoms reported Cardiovascular: No symptoms reported Respiratory: No symptoms reported Gastrointestinal: No symptoms reported Genitourinary: Pain, Urgency, Retention Musculoskeletal: No symptoms reported Skin: No symptoms reported Hematologic/Lymphatic: No symptoms reported Neurological/Psychological: No symptoms reported Physical Exam - Vital signs Vitals: Temp Pulse Resp BP Pulse Ox 97.4 F 76 18 125/87 H 99 12/19/18 11:12 12/19/18 11:12 12/19/18 11:12 12/19/18 11:12 12/19/18 11:12 Interpretation: Normal - General General appearance: Appears well, Alert - HEENT Head: Normocephalic, Atraumatic Eyes: Normal Pupils: PERRL - Respiratory Respiratory status: No respiratory distress Chest status: Nontender Breath sounds: Normal Chest palpation: Normal - Cardiovascular Rhythm: Regular Heart sounds: Normal auscultation Murmur: No - Abdominal Inspection: Normal Distension: No distension Bowel sounds: Normal Tenderness: Nontender Organomegaly: No organomegaly - Genitourinary External exam: Lesions - Small infected hair follicle on the left they have patient instructions concerning Epson salt soaks to the area - Back Back: Normal, Nontender - Extremities General upper extremity: Normal inspection, Nontender, Normal color, Normal ROM, Normal temperature General lower extremity: Normal inspection, Nontender, Normal color, Normal ROM, Normal temperature, Normal weight bearing. No: Tammi's sign - Neurological Neuro grossly intact: Yes Cognition: Normal Orientation: AAOx4 Anam Coma Scale Eye Opening: Spontaneous Anam Coma Scale Verbal: Oriented Anam Coma Scale Motor: Obeys Commands Anam Coma Scale Total: 15 Speech: Normal Motor strength normal: LUE, RUE, LLE, RLE Sensory: Normal - Psychological Associated symptoms: Normal affect, Normal mood - Skin Skin Temperature: Warm Skin Moisture: Dry Skin Color: Normal Course - Vital Signs Vital signs: Temp Pulse Resp BP Pulse Ox 97.5 F 76 18 144/64 H 100 12/19/18 14:03 12/19/18 14:03 12/19/18 14:03 12/19/18 14:03 12/19/18 14:03 - Laboratory Result Diagrams: 12/19/18 12:32 12/19/18 12:32 Laboratory results interpreted by me: 12/19/18 12/19/18 11:15 12:32 RBC 3.62 L Hgb 11.6 L Hct 33.6 L Urine Blood SMALL H Ur Leukocyte Esterase LARGE H Discharge - Discharge Clinical Impression: Abscess of left groin UTI (urinary tract infection) Qualifiers: Urinary tract infection type: acute cystitis Hematuria presence: with hematuria Qualified Code(s): N30.01 - Acute cystitis with hematuria Condition: Stable Disposition: HOME, SELF-CARE Additional Instructions: ABSCESS: You have an abscess (boil). This a pus-forming infection, usually due to staph. Some boils may be left to drain on their own, but most require lancing. From the time the tender lump first appears, it may be three or four days before the abscess is ready to hanna. Local heat and rest help at this stage of treatment. An antibiotic may prevent spread of the infection. Once the abscess is opened, packing may be placed into it. This is done so pus is not sealed inside by premature closure of the cavity. The packing will be removed at your follow-up visit or you may be advised to remove it yourself at home. Sometimes this packing must be replaced a few times during healing. The wound will heal with surprisingly little scar. Depending on the size a nd location of an abscess, healing can take one to four weeks. You may shower and wash the area around the incision site two or three times a day. Antibiotics may be prescribed, but are usually not necessary after an abscess has been drained. If you develop fever, chills, worsening pain, or increasing swelling in the area, call the doctor or return immediately. URINARY TRACT INFECTION: Your evaluation indicates that you have a urinary tract infection. This is due to germs growing in the bladder. This is a common problem. This infection usually responds quickly to antibiotics. Your antibiotic should be taken exactly as prescribed. Drink plenty of fluids -- three to four quarts a day. Occasionally, a bladder anesthetic will be prescribed to help stop the fe eling of urgency until the antibiotic has a chance to clear the infection. This may cause your urine to be dark orange. Certain urine infections require a culture. If the doctor obtained a cult ure, the results will be back in two days. You should call to see if a change in treatment is needed. A repeat urinalysis after you finish treatment is often recommended. The physician will let you know if further testing is required. Call the doctor if you develop fever, chills, flank pain, inability to urinate, or blood in the urine. Whalen Catheter Care Tube Position: Keep the catheter connected to the drainage tubing at all times. Avoid pulling on the catheter. Keep the drainage tube taped to the mid- thigh, on top of your leg (not underneath it). Be sure there are no kinks or loops in the tube. Keep the drainage bag below the bladder. When in bed, the drainage bag should hang below the abdomen but should not lie on the floor. The drainage bag has hooks at the top so it can be hung on a chair or bed. Daily Cleaning: Wash your hands with soap and water before and after caring for your catheter. Twice a day, clean yourself where the catheter goes into the urethra. Use a warm, soapy wash cloth to clean around the urethral opening and the first few inches of the catheter. Females should wash from front to back to decrease the risk of infection from fecal material. After washing with soap, rinse the area with water. Do not put powder around the catheter. Apply ointment only if instructed by your doctor or nurse. Follow up if you develop fever or chills, flank or abdominal pain, blood in the urine, or if urine is not draining into the catheter. NITROFURANTOIN (MACRODANTIN, MACROBID): You have received a prescription for nitrofurantoin (Macrodantin). This antibiotic is used for urinary tract infections. Women who are or nursing should notify the physician before taking this medicine. If you have ever had a problem caused by this medication in the past, be sure the physician is aware of it. Common side effects of this medicine include nausea, vomiting, or decreased appetite. Notify your physician if these side effects become severe. Immediately stop this medicine and call the physician if you develop cough, shortness of breath, chest pain, weakness, jaundice (yellow color of the skin and whites of the eyes), or a skin rash. ing, or jaundice (yellow color in the skin), or if you develop any other new or unusual symptoms. pected effects, such as itching, hives, or shortness of breath. Rocephin You have been given an injection of an antibiotic called Rocephin ( ceftriaxone). Sometimes the injection must be combined with antibiotic pills. For some infections, such as an uncomplicated ear infection, Rocephin provides all the antibiotic that's needed. The antibiotic will be in your body for about two days. For serious infections, we usually repeat doses of Rocephin daily. Side effects are very unusual following a shot. Women may develop vaginal yeast infections, and babies can get yeast (thrush) in the mouth following the use of antibiotics. Contact your physician if you have symptoms with this medication. Allergy to this antibiotic can result in hives, wheezing, faintness, or itching. If symptoms of allergy occur, call the doctor at once. Epsom Salt Soaks Soak the wound area in a container of warm epsom salt water. If you can't get the wound area into a bucket or avelar, use a folded towel soaked in the epsom salt solution and apply to the area. Use clean hot tap water (about the temperature of a very warm bath), mixing in about one (1) teaspoon for every pint of water. Two gallon --> 16 teaspoons Epsom Salts One gallon --> 8 teaspoons Epsom Salts Two quarts --> 4 teaspoons Epsom Salts One quart --> 2 teaspoons Epsom Salts Soak the wound for about 20 minutes while gently moving it around in the water. Repeat this four (4) times a day. FOLLOW-UP CARE: Most simple abscesses will not require a follow up visit. If you had packing placed in the abscess, remove it as instructed by the physician. If you have been referred to a physician for follow-up care, call the physicians office for an appointment as you were instructed or within the next two days. If you experience worsening or a significant change in your symptoms, return to the Emergency Department at any time for re-evaluation. Prescriptions: Fluconazole [Diflucan] 100 mg PO ONCE PRN #1 tablet PRN Reason: Nitrofurantoin/Nitrofuran Mac [Macrobid 100 mg Capsule] 1 tab PO BID #20 capsule Forms: Elevated Blood Pressure Referrals: DEE DEE LEWIS DO [Primary Care Provider] - Follow up as needed
[2018-12-19 11:55] LABS: APPEARANCE,URINE CLOUDY; BILIRUBIN,URINE NEGATIVE (NEGATIVE); COLOR,URINE STRAW; GLUCOSE, URINE NEGATIVE (NEGATIVE); KETONES,URINE NEGATIVE (NEGATIVE); LEUKOCYTE ESTERASE,URINE LARGE (NEGATIVE); NITRITE,URINE NEGATIVE (NEGATIVE); PROTEIN,URINE NEGATIVE (NEGATIVE); URINE SPECIFIC GRAVITY 1.012; UROBILINOGEN,URINE NEGATIVE mg/dL (<2.0)
[2018-12-19 12:57] LABS: ABSOLUTE BASOPHILS # (AUTO) 0.1 10^3/uL (0.0-0.2); ABSOLUTE EOSINOPHILS # (AUTO) 0.1 10^3/uL (0.0-0.6); ABSOLUTE MONOCYTES (AUTO) 0.6 10^3/uL (0.1-1.4); ABSOLUTE NEUT (AUTO) 5.6 10^3/uL (1.7-8.2); BASOPHILS % (AUTO) 1.7 % (0-2); EOSINOPHILS % (AUTO) 1.1 % (0-6); HEMATOCRIT 33.6 % (36.0-47.0); HEMOGLOBIN 11.6 g/dL (12.0-15.5); LYMPHOCYTES % (AUTO) 23.6 % (13-45); MEAN CORPUSCULAR HEMOGLOBIN 32.2 pg (27.0-33.4); MEAN CORPUSCULAR HGB CONC 34.7 g/dL (32.0-36.0); MEAN CORPUSCULAR VOLUME 93 fl (80-97); MONOCYTES % (AUTO) 6.8 % (3-13); PLATELET COUNT 230 10^3/uL (150-450); RED BLOOD COUNT 3.62 10^6/uL (3.72-5.28); RED CELL DISTRIBUTION WIDTH 12.7 % (11.5-14.0); SEGMENTED NEUTROPHILS % (AUTO) 66.8 % (42-78); TOTAL CELLS COUNTED % (AUTO) 100 %; WHITE BLOOD COUNT 8.4 10^3/uL (4.0-10.5)
[2018-12-19] MEDS ORDERED: CEFTRIAXONE 1 GM/D5W RTU 1 GM/50 ML RTUPB IV ONE (13:01)
[2018-12-19] MEDS ORDERED: NITROFURANTOIN MONOHYD/M-CRYST 100 MG CAPSULE PO ONE (13:03)
[2018-12-19 13:18] LABS: ALBUMIN 3.7 g/dL (3.5-5.0); ALKALINE PHOSPHATASE 71 U/L (38-126); ANION GAP 7 (5-19); ASPARTATE AMINO TRANSFERASE 14 U/L (14-36); BILIRUBIN,DIRECT 0.1 mg/dL (0.0-0.4); BILIRUBIN,TOTAL 0.2 mg/dL (0.2-1.3); BLOOD UREA NITROGEN 18 mg/dL (7-20); CALCIUM 9.1 mg/dL (8.4-10.2); CARBON DIOXIDE 26 mmol/L (22-30); CHLORIDE 107 mmol/L (98-107); GLUCOSE 97 mg/dL (75-110); POTASSIUM 4.2 mmol/L (3.6-5.0); TOTAL PROTEIN 7.1 g/dL (6.3-8.2)
[2018-12-19 14:08] VITALS: BP 144/64
== END 2018-12-19 14:25 | disposition home or self-care (01) ==
LOC: ER 11:03
DX: N30.01 Acute cystitis with hematuria (principal); L02.214 Cutaneous abscess of groin; R39.198 Other difficulties with micturition; R30.9 Painful micturition, unspecified; R33.9 Retention of urine, unspecified; R39.15 Urgency of urination; I10 Essential (primary) hypertension; J45.909 Unspecified asthma, uncomplicated
CPT/HCPCS: 99283; 96361; 51702; 96365; 36415; 87086; 84703; 85025; 80053; 81001; J7030; J0696; J1642; J3490; J8499

== ENCOUNTER 2018-12-19 19:17 | Emergency (ER) | payer MEDICAID ==
--- NOTE | 2018-12-19 19:49 | ER Document Report ---
ED Medical Screen (RME) - General Chief Complaint: Fall Stated Complaint: FALL Time Seen by Provider: 12/19/18 19:47 Primary Care Provider: DEE DEE LEWIS DO [Primary Care Provider] - Follow up as needed Mode of Arrival: Medic Information source: Emergency Med Personnel Notes: This 48-year-old female with history of epilepsy presents back to the emergency department with reports that she cannot void. Patient has a Whalen in place. While waiting in the waiting room patient had a seizure. Patient was in a wheelchair and slipped out of the chair. No obvious injuries noted. Patient was to sit up herself.Patient keeps repeating she has to pee. I have greeted and performed a rapid initial assessment of this patient. A comprehensive ED assessment and evaluation of the patient, analysis of test results and completion of the medical decision making process will be conducted by additional ED providers. Dictation of this chart was performed using voice recognition software; therefore, there may be some unintended grammatical errors. TRAVEL OUTSIDE OF THE [place] IN LAST 30 DAYS: No - Related Data Allergies/Adverse Reactions: diatrizoate meglumine [From Cystografin] Allergy (Mild, Verified 01/08/18 13:36) Hives clarithromycin [From Biaxin] Allergy (Verified 01/08/18 13:36) erythromycin base [Erythromycin Base] Allergy (Verified 01/08/18 13:36) naproxen sodium [From Anaprox] Allergy (Verified 01/08/18 13:36) pseudoephedrine HCl [From Sudafed] Allergy (Verified 01/08/18 13:36) Sulfa (Sulfonamide Antibiotics) Allergy (Verified 01/08/18 13:36) tramadol Allergy (Verified 01/08/18 13:36) Past Medical History - Past Medical History Cardiac Medical History: Reports: Hx Hypertension Denies: Hx Coronary Artery Disease, Hx Heart Attack Pulmonary Medical History: Reports: Hx Asthma - LAST ASTHMA 3 WEEKS AGO Denies: Hx Bronchitis, Hx COPD, Hx Pneumonia Neurological Medical History: Reports: Hx Seizures - Epilepsy with vagal nerve stimulator.. Denies: Hx Cerebrovascular Accident Endocrine Medical History: Denies: Hx Diabetes Mellitus Type 1, Hx Diabetes Mellitus Type 2 Renal/ Medical History: Reports: Hx Ovarian Cysts. Denies: Hx Peritoneal Dialysis GI Medical History: Reports: Hx Gastroesophageal Reflux Disease Musculoskeltal Medical History: Reports Hx Arthritis, Reports Hx Musculoskeletal Deformity Skin Medical History: Reports Hx Cellulitis, Reports Hx MRSA Psychiatric Medical History: Reports: Hx Anxiety, Hx Depression Infectious Medical History: Reports: Hx C-Diff, Hx MRSA Past Surgical History: Reports: Hx Section, Hx Cholecystectomy, Hx Gynecologic Surgery - tubal , Hx Orthopedic Surgery - Right tibia intramedullary clare, Hx Tonsillectomy, Other - Vagal nerve stimulator implant. - Immunizations Hx Diphtheria, Pertussis, Tetanus Vaccination: No - unknown History of Influenza Vaccine for 12/2016 - 05/2017 Season: No Physical Exam - Vital signs Vitals: Temp Pulse Resp BP Pulse Ox 98.4 F 56 L 22 H 150/71 H 97 12/19/18 19:25 12/19/18 19:25 12/19/18 19:25 12/19/18 19:25 12/19/18 19:25 Course - Vital Signs Vital signs: Temp Pulse Resp BP Pulse Ox 98.4 F 56 L 22 H 150/71 H 97 12/19/18 19:25 12/19/18 19:25 12/19/18 19:25 12/19/18 19:25 12/19/18 19:25 Doctor's Discharge - Discharge Referrals: DEE DEE LEWIS DO [Primary Care Provider] - Follow up as needed
[2018-12-19 20:36] LABS: ABSOLUTE BASOPHILS # (AUTO) 0.1 10^3/uL (0.0-0.2); ABSOLUTE EOSINOPHILS # (AUTO) 0.1 10^3/uL (0.0-0.6); ABSOLUTE LYMPHOCYTES (AUTO) 2.8 10^3/uL (0.5-4.7); ABSOLUTE MONOCYTES (AUTO) 0.7 10^3/uL (0.1-1.4); ABSOLUTE NEUT (AUTO) 6.3 10^3/uL (1.7-8.2); BASOPHILS % (AUTO) 0.6 % (0-2); EOSINOPHILS % (AUTO) 0.7 % (0-6); HEMATOCRIT 33.9 % (36.0-47.0); HEMOGLOBIN 11.4 g/dL (12.0-15.5); LYMPHOCYTES % (AUTO) 28.6 % (13-45); MEAN CORPUSCULAR HGB CONC 33.7 g/dL (32.0-36.0); MEAN CORPUSCULAR VOLUME 95 fl (80-97); MONOCYTES % (AUTO) 7.3 % (3-13); PLATELET COUNT 252 10^3/uL (150-450); RED BLOOD COUNT 3.57 10^6/uL (3.72-5.28); RED CELL DISTRIBUTION WIDTH 12.7 % (11.5-14.0); SEGMENTED NEUTROPHILS % (AUTO) 62.8 % (42-78); TOTAL CELLS COUNTED % (AUTO) 100 %; WHITE BLOOD COUNT 9.9 10^3/uL (4.0-10.5)
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
[2018-12-19 20:50] LABS: ALBUMIN 3.8 g/dL (3.5-5.0); ALKALINE PHOSPHATASE 72 U/L (38-126); ANION GAP 9 (5-19); ASPARTATE AMINO TRANSFERASE 18 U/L (14-36); BILIRUBIN,TOTAL < 0.1 mg/dL (0.2-1.3); BLOOD UREA NITROGEN 20 mg/dL (7-20); CALCIUM 8.9 mg/dL (8.4-10.2); CARBON DIOXIDE 23 mmol/L (22-30); CHLORIDE 108 mmol/L (98-107); GLUCOSE 103 mg/dL (75-110); POTASSIUM 3.8 mmol/L (3.6-5.0); TOTAL PROTEIN 7.2 g/dL (6.3-8.2)
[2018-12-19 22:07] LABS: APPEARANCE,URINE SLIGHTLY-CLOUDY; BILIRUBIN,URINE NEGATIVE (NEGATIVE); COLOR,URINE STRAW; GLUCOSE, URINE NEGATIVE (NEGATIVE); KETONES,URINE NEGATIVE (NEGATIVE); LEUKOCYTE ESTERASE,URINE MODERATE (NEGATIVE); NITRITE,URINE NEGATIVE (NEGATIVE); PROTEIN,URINE 30 mg/dL (NEGATIVE); URINE SPECIFIC GRAVITY 1.008; UROBILINOGEN,URINE NEGATIVE mg/dL (<2.0)
[2018-12-19 22:22] LABS: ALCOHOL < 10 mg/dL (NONE DETECTED)
[2018-12-19 23:13] VITALS: BP 194/77
== END 2018-12-19 23:31 | disposition home or self-care (01) ==
LOC: ER 19:17
DX: R11.2 Nausea with vomiting, unspecified (principal); R39.198 Other difficulties with micturition; T83.9XXA Unspecified complication of genitourinary prosthetic device, implant and graft, initial encounter; R10.30 Lower abdominal pain, unspecified; I10 Essential (primary) hypertension; J45.909 Unspecified asthma, uncomplicated
CPT/HCPCS: 36415; 80307; 83735; 80185; 87070; 81001; J1642; 99283

== ENCOUNTER 2019-12-02 12:18 | Emergency (ER) | payer MEDICAID ==
[2019-12-02 13:27] LABS: ABSOLUTE BASOPHILS # (AUTO) 0.1 10^3/uL (0.0-0.2); ABSOLUTE EOSINOPHILS # (AUTO) 0.2 10^3/uL (0.0-0.6); ABSOLUTE MONOCYTES (AUTO) 0.3 10^3/uL (0.1-1.4); ABSOLUTE NEUT (AUTO) 3.4 10^3/uL (1.7-8.2); HEMOGLOBIN 13.2 g/dL (12.0-15.5); RED CELL DISTRIBUTION WIDTH 13.4 % (11.5-14.0); TOTAL CELLS COUNTED % (AUTO) 100 %
[2019-12-02 13:35] LABS: BASOPHILS % (AUTO) 0.9 % (0-2); EOSINOPHILS % (AUTO) 3.3 % (0-6); HEMATOCRIT 38.2 % (36.0-47.0); LYMPHOCYTES % (AUTO) 33.6 % (13-45); MEAN CORPUSCULAR HEMOGLOBIN 32.9 pg (27.0-33.4); MEAN CORPUSCULAR HGB CONC 34.5 g/dL (32.0-36.0); MEAN CORPUSCULAR VOLUME 95 fl (80-97); MONOCYTES % (AUTO) 5.3 % (3-13); PLATELET COUNT 306 10^3/uL (150-450); RED BLOOD COUNT 4.02 10^6/uL (3.72-5.28); SEGMENTED NEUTROPHILS % (AUTO) 56.9 % (42-78)
[2019-12-02 13:47] LABS: ALBUMIN 4.4 g/dL (3.5-5.0); ALKALINE PHOSPHATASE 110 U/L (38-126); ANION GAP 9 (5-19); ASPARTATE AMINO TRANSFERASE 26 U/L (14-36); BILIRUBIN,DIRECT 0.3 mg/dL (0.0-0.4); BILIRUBIN,TOTAL 0.5 mg/dL (0.2-1.3); BLOOD UREA NITROGEN 15 mg/dL (7-20); CALCIUM 9.5 mg/dL (8.4-10.2); CARBON DIOXIDE 27 mmol/L (22-30); CHLORIDE 105 mmol/L (98-107); GLUCOSE 98 mg/dL (75-110); POTASSIUM 4.5 mmol/L (3.6-5.0); TOTAL PROTEIN 7.8 g/dL (6.3-8.2)
[2019-12-02 14:01] LABS: ALCOHOL < 10 mg/dL (NONE DETECTED)
[2019-12-02 14:02] LABS: ACETAMINOPHEN < 10 ug/mL (10-30); SALICYLATE < 1.0 mg/dL (2.0-20.0)
--- NOTE | 2019-12-02 15:15 | ER Document Report ---
ED General <VANDANACARINA BARRIGA - Last Filed: 12/02/19 15:32> - General TRAVEL OUTSIDE OF THE [place] IN LAST 30 DAYS: No <DEE DEE EDMONDS - Last Filed: 12/02/19 16:07> - General Chief Complaint: Psych Problem Stated Complaint: PSYCH EVAL Time Seen by Provider: 12/02/19 12:21 Primary Care Provider: [facility] [Outside] - 12/03/19 8:00 am (Walk in first thing tomorrow 12/03/2019) morning for initial assessment and to get appointments for medication management and therapy. ) [facility] [Outside] - Follow up as needed [facility] [Outside] - Follow up as needed DEE DEE LEWIS DO [Primary Care Provider] - Follow up as needed - HPI Notes: Chief complaint: Psychiatric evaluation History of present illness: 49-year-old female with history of bipolar disorder, hypertension and seizure disorder brought in on IVC status with petition taken out by mobile crisis. The patient spoke with him earlier today and expressed suicidal ideation making the statement "the next time someone sees me it will be in a body bag" although she denies any specific plan for suicide. Patient says she has been very depressed recently apparently related to anniversary reaction of her brother who suddenly about a year ago. She is also had multiple other deaths in her family in a relatively short period of time and this appears to be her primary stressor. 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 She denies any auditory or sensory hallucinations. She denies any intent to harm anyone else. She currently lives in a local [facility] with her son who is in his 20s. She reports multiple family members have been treated for bipolar disorder. (DEE DEE EDMONDS) - Related Data Allergies/Adverse Reactions: diatrizoate meglumine [From Cystografin] Allergy (Mild, Verified 01/08/18 13:36) Hives clarithromycin [From Biaxin] Allergy (Verified 01/08/18 13:36) erythromycin base [Erythromycin Base] Allergy (Verified 01/08/18 13:36) naproxen sodium [From Anaprox] Allergy (Verified 01/08/18 13:36) pseudoephedrine HCl [From Sudafed] Allergy (Verified 01/08/18 13:36) Sulfa (Sulfonamide Antibiotics) Allergy (Verified 01/08/18 13:36) tramadol Allergy (Verified 01/08/18 13:36) Past Medical History - General Information source: Patient - Social History Smoking Status: Current Every Day Smoker Chew tobacco use (# tins/day): No Frequency of alcohol use: None Drug Abuse: None Lives with: Family Family History: Reviewed & Not Pertinent - Past Medical History Cardiac Medical History: Reports: Hx Hypertension Denies: Hx Coronary Artery Disease, Hx Heart Attack Pulmonary Medical History: Reports: Hx Asthma - LAST ASTHMA 3 WEEKS AGO Denies: Hx Bronchitis, Hx COPD, Hx Pneumonia Neurological Medical History: Reports: Hx Seizures - Epilepsy with vagal nerve stimulator. 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 Denies: Hx Cerebrovascular Accident Endocrine Medical History: Denies: Hx Diabetes Mellitus Type 1, Hx Diabetes Mellitus Type 2 Renal/ Medical History: Reports: Hx Ovarian Cysts. Denies: Hx Peritoneal Dialysis GI Medical History: Reports: Hx Gastroesophageal Reflux Disease Musculoskeletal Medical History: Reports Hx Arthritis, Reports Hx Musculoskeletal Deformity Skin Medical History: Reports Hx Cellulitis, Reports Hx MRSA Psychiatric Medical History: Reports: Hx Anxiety, Hx Depression Infectious Medical History: Reports: Hx C-Diff, Hx MRSA Past Surgical History: Reports: Hx Section, Hx Cholecystectomy, Hx Gynecologic Surgery - tubal , Hx Orthopedic Surgery - Right tibia int ramedullary clare, Hx Tonsillectomy, Other - Vagal nerve stimulator implant. - Immunizations Hx Diphtheria, Pertussis, Tetanus Vaccination: No - unknown <DEE DEE EDMONDS - Last Filed: 12/02/19 16:07> Review of Systems <DEE DEE EDMONDS - Last Filed: 12/02/19 16:07> - Review of Systems Notes: Constitutional: Negative for fever. HENT: Negative for sore throat. Eyes: Negative for visual changes. Cardiovascular: Negative for chest pain. Respiratory: Negative for shortness of breath. Gastrointestinal: Negative for abdominal pain, vomiting or diarrhea. Genitourinary: Negative for dysuria. Musculoskeletal: Negative for back pain. Skin: Negative for rash. Neurological: Negative for headaches, weakness or numbness. 10 point ROS negative except as marked above and in HPI. (DEE DEE EDMONDS) Physical Exam <DEE DEE EDMONDS - Last Filed: 12/02/19 16:07> - Vital signs Vitals: Temp Pulse Resp BP Pulse Ox 97.8 F 78 18 148/71 H 97 12/02/19 13:12 12/02/19 13:12 12/02/19 13:12 12/02/19 13:12 12/02/19 13:12 - Notes Notes: GENERAL: Somewhat obese middle-aged female appearing slightly restless but generally cooperative. SKIN: Good turgor no rashes. HEAD: Normocephalic atraumatic. EYES: PERRLA. EOMI. Conjunctivae and sclerae clear. EARS: CANALS AND TMS CLEAR. NOSE: CLEAR. MOUTH: Moist mucosa. Good dentition. No stridor or edema. No drooling. NECK: Supple. No masses or thyromegaly. No adenopathy. Carotids 2+ without bruits. No JVD. BACK: Symmetrical without tenderness. CHEST: Respirations unlabored. Breath sounds clear and symmetrical. HEART: Regular rhythm. No murmur gallop or rub. ABDOMEN: Obese. Soft nontender without masses, organomegaly or rebound. Bowel sounds normally active. No bruits. GENITALIA: Deferred. EXTREMITIES: No edema. No calf tenderness. Cap refill less than 1.5 seconds. Dorsalis pedis and posterior tibial pulses 3+ and symmetrical. NEUROLOGICAL: GCS 15. Alert and oriented x3. Normal gait. Pressure speech. Cranial nerves II through XII intact. Sensorimotor and cerebellar normal. Normal tone. PSYCHIATRIC: Anxious. (DEE DEE EDMONDS) Course - Laboratory Result Diagrams: 12/02/19 13:05 12/02/19 13:05 <CARINA TAYLOR - Last Filed: 12/02/19 15:32> - Laboratory Result Diagrams: 12/02/19 13:05 12/02/19 13:05 <DEE DEE EDMONDS - Last Filed: 12/02/19 16:07> - Re-evaluation Re-evalutation: 12/02/19 16:04 The patient indicates that she was simply seeking support from [facility] and she feels her misinterpreted the statement she made. She says she does not have any specific plan to harm herself or anyone else. She has been cleared here medically. Subsequently was seen by behavioral health service. Dr. Sorto feels that patient is stable for early outpatient follow-up and appropriate arrangements have been made for this. They recommend addition of Zyprexa 2.5 mg twice daily and I will write her prescription for this. I do not feel the patient meets appropriate criteria for ongoing involuntary commitment at this time and we have rescinded this. Findings, clinical impression and plan of treatment have been discussed with patient/family. Understanding of current findings and recommendations has been acknowledged by them and there is agreement regarding disposition and follow-up. (DEE DEE EDMONDS) - Vital Signs Vital signs: Temp Pulse Resp BP Pulse Ox 97.8 F 78 18 148/71 H 97 12/02/19 13:12 12/02/19 13:12 12/02/19 13:12 12/02/19 13:12 12/02/19 13:12 - Laboratory Laboratory results interpreted by me: 12/02/19 13:05 ALT 69 H Salicylates < 1.0 L Acetaminophen < 10 L Valproic Acid < 10.0 L Discharge <CARINA TAYLOR - Last Filed: 12/02/19 15:32> <DEE DEE EDMONDS - Last Filed: 12/02/19 16:07> - Discharge Clinical Impression: Grief, History of bipolar disorder Condition: Stable Disposition: HOME, SELF-CARE Additional Instructions: You have been evaluated by both medical and behavioral health teams for Involuntary Commitment, suicidal ideation, grief, and history of Bipolar Disorder. You have been deemed appropriate for discharge. While in the emergency department you received the following services/or had access to: Medical s creening and assessment, nursing services, dietary services, pharmacological services, one-on-one counseling and/or psychotherapy, environmental services, and continuous observation by a patient construction safety consultant. Medication recommendations have been have been provided and are as follows: Add Zyprexa 2.5MG twice a day for mood stabilization/impulse control Please take your medications as prescribe and do not stop these medications without discussion with your prescribing physician. Bipolar Disorder Bipolar disorder is also called manic-depressive disorder. Depression alternates with brain hyperactivity called wilian. Each phase lasts from several days to a few weeks. We don't know exactly what causes bipolar disorder, but it's treatable. During the "manic phase," you may feel elated and energetic. You may have racing thoughts, rapid speech, increased activity, and grandiose ideas. During this time, you may not realize how poor your judgement is. Inappropriate spending, drug abuse, excessive alcohol use, marriage problems, and irresponsible sexual behavior are common during the manic phase. During the "depressive phase," you might feel depressed, guilty, worthless, fatigued, and unable to concentrate. You might have thoughts of suicide. Good treatments are available for bipolar disorder. [place] is a classic drug for bipolar disorder, and is still often useful. If the manic phase is very mild, an antidepressant alone can be prescribed. If the manic phase is very severe, an antipsychotic medicine (such as Haldol) may be needed. The treatment must be matched to your symptoms, so it's important to work closely with your psychiatric care provider. Contact your physician, the hospital emergency center, crisis line, or your counsellor if you are losing control or having self-destructive thoughts. SUICIDAL IDEATION: Suicidal ideation is a common medical term for thoughts about suicide, which may be as detailed as a formulated plan, without the suicidal act itself. Although most people who undergo suicidal ideation do not commit suicide, some go on to make suicide attempts. The range of suicidal ideation varies greatly from fleeting to detailed planning, role playing, and unsuccessful attempts. While thoughts about suicide are common, most people do not carry out serious actions to commit suicide. Based upon your evaluation and discussion with you, we do not believe you are currently at risk to act upon your thoughts of suicide. You have agreed to return to the Emergency Department, at any time, if you feel inclined to act upon your suicidal thoughts. FOLLOW-UP CARE: You are being provided a prescription to help manage your reported history of Bipolar Disorder, which will likely help with your grief. You are recommended to establish outpatient mental health services (both medication management and therapy). You were provided a mental health resource sheet which documented walk in to [facility] (walk in s are Monday-Monday 8:00AM -12:00PM (noon). You are recommended to do a walk in first thing tomorrow (12/03/2019) morning). You have also been provided both local mobile crisis numbers. If you experience worsening or a significant change in your symptoms notify your physician immediately, utilize mobile crisis or return to the Emergency Department at any time for re-evaluation. Prescriptions: Olanzapine [Zyprexa 2.5 Mg Tablet] 2.5 mg PO BID #20 tablet Referrals: DEE DEE LEWIS DO [Primary Care Provider] - Follow up as needed [facility] [Outside] - Follow up as needed [facility] [Outside] - Follow up as needed [facility] [Outside] - 12/03/19 8:00 am (Walk in first thing tomorrow 12/03/2019) morning for initial assessment and to get appointments for medication management and therapy. )
[2019-12-02 16:15] VITALS: BP 138/87
[2019-12-02 16:17] LABS: APPEARANCE,URINE SLIGHTLY-CLOUDY; BILIRUBIN,URINE NEGATIVE (NEGATIVE); COLOR,URINE YELLOW; GLUCOSE, URINE NEGATIVE (NEGATIVE); KETONES,URINE NEGATIVE (NEGATIVE); LEUKOCYTE ESTERASE,URINE SMALL (NEGATIVE); NITRITE,URINE NEGATIVE (NEGATIVE); PROTEIN,URINE NEGATIVE (NEGATIVE); URINE SPECIFIC GRAVITY 1.013; UROBILINOGEN,URINE NEGATIVE mg/dL (<2.0)
[2019-12-02 16:28] LABS: URINE AMPHETAMINES SCREEN NEGATIVE; URINE BARBITURATES SCREEN NEGATIVE; URINE COCAINE SCREEN NEGATIVE; URINE MARIJUANA (THC) SCREEN NEGATIVE; URINE METHADONE SCREEN NEGATIVE; URINE PHENCYCLIDINE SCREEN NEGATIVE
[2019-12-02 16:29] LABS: URINE BENZODIAZEPINES SCREEN UNCONFIRMED POSITIVE
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
--- NOTE | 2019-12-03 08:42 | EKG REPORT ---
SEVERITY:- OTHERWISE NORMAL ECG - SINUS RHYTHM BORDERLINE LEFT AXIS DEVIATION : Confirmed by: Landon Vigil MD 03-Dec-2019 08:41:58
== END 2019-12-02 16:26 | disposition home or self-care (01) ==
LOC: ER 12:18
DX: R45.851 Suicidal ideations (principal); F43.21 Adjustment disorder with depressed mood; I10 Essential (primary) hypertension; F31.9 Bipolar disorder, unspecified; F17.200 Nicotine dependence, unspecified, uncomplicated
CPT/HCPCS: 36415; 80053; 80164; 80185; 80307; 81001; 85025; 93005; 93010; 99285